=== PATIENT | female | born 1955 | race Caucasian/White ===

== ENCOUNTER 2016-12-30 06:40 | Emergency (ER) | payer OTHER, MEDICARE ==
[~2016-12-30] VITALS: Ht 160 cm; Wt 68.0 kg
[~2016-12-30 06:40] MED LIST: AUGMENTIN 875-1 EACH PO; AUGMENTIN 875875 MG PO; AZITHROMYCIN500 M3 PO; DIAZEPAM5 M1 PO; DILAUDID2 MG PO; FENTANYL; FENTANYL NAS; FENTANYL SL; FENTANYL1 EAC4 TOP; FENTANYL1 EAC5 TOP; GABAPENTIN100 MG PO; HALOBETASOL PRO15 GM TOP; HYDROMORPHONE HY8 MG PO; HYDROXYZINE HCL50 M1 PO; IPRAT-ALBUT 0.5-3 ML INH/SOL; LANTUS100 U/ML SC; LANTUS100 UNIT/1 SC; LASIX20 MG PO; LASIX40 M1 PO; LEVAQUIN500 M1 PO; MEDROL4 M2 PO; MORPHINE; NAPROXEN500 M2 PO; NOVOLOG FL100 UNIT/1; NOVOLOG100 U/ML SC; NYSTATIN100000 UNI PO; ONDANSETRON ODT8 M1 PO; ONDANSETRON4 M1; PREDNISONE10 M2 PO; PREDNISONE10 MG PO; PREVACID30 M1 PO; PYRIDIUM200 M1 PO; SIMVASTATIN10 MG PO; SYMBICORT 160/41 PUF INH; TOUJEO SOL300 UNIT/1 SQ; VALACYCLOVIR1000 MG PO; VITAMIN B COMPL1 CAP PO; VITAMIN D250000 UNIT PO; VITAMIN D50000 IU PO; ZITHROMAX250 M2 PO; ZOCOR10 M1 PO; ZOFRAN4 M2 SL; [UNRECOGNIZED DRUG - OTHER]; [UNRECOGNIZED DRUG - OTHER] NAS; [UNRECOGNIZED DRUG - OTHER] SL
--- NOTE | 2016-12-30 07:01 | ED GI/GU/ABDOMINAL COMPLAINT ---
History of Present Illness General Chief Complaint: General Adult Stated Complaint: VOMITING,PT HAS PAIN PUMP TO BACK PT OF BAILEE Source: patient Exam Limitations: no limitations Vital Signs & Intake/Output Vital Signs & Intake/Output Vital Signs Date Time Temp Pulse Resp B/P Pulse O2 O2 Flow FiO2 Ox Delivery Rate 12/30 0551 93 Nasal 4.0L Cannula 12/30 0550 97.5 100 20 188/96 93 Nasal 4.0L Cannula Allergies Coded Allergies: Sulfa (Sulfonamide Antibiotics) (Intermediate, HIVES 07/20/16) tioconazole (Intermediate, VAGINA SWELLING 07/20/16) metoclopramide (From REGLAN) (Intermediate, ANTSY, RESTLESS LEGS 07/20/16) prochlorperazine (From COMPAZINE) (Intermediate, JITTERY, "JUMP OUT OF MY SKIN" 07/20/16) Reconcile Medications Albuterol Sulfate/Ipratropiu (Duoneb) 3 MG/3 ML NEB 1 Vial INH/SCOTT BID PRN COPD (Reported) Amoxicillin/Potassium Clav (Augmentin 875-125 Tablet) 875 MG-125 MG TABLET 1 TAB PO BID bronchitis Budesonide/Formoterol Fumara (Symbicort 160-4.5 Mcg Inhaler) 160 MCG/4.5 MCG PUF 2 PUF INH BID COPD (Reported) Diazepam 5 MG TABLET 1 TAB PO TID ANXIETY (Reported) ERGOCALCIFEROL (VITAMIN D2) (Vitamin D2) 50,000 IU SGL 1 CAP PO QMON SUPPLEMENT (Reported) Fentanyl (Fentanyl Transdermal System) 100 MCG/HR TDM 200 MCG TD Q48 PAIN ( Reported) Fentanyl (Fentanyl Transdermal System) 75 MCG/HR TDM 75 MCG TD Q48 PAIN ( Reported) Furosemide (Lasix) 40 MG TABLET 1 TAB PO DAILY PRN DIURETIC (Reported) Halobetasol Propionate 15 GM CREAM..G. 1 BERE TOP BID BOTH HANDS ECZEMA ( Reported) Insulin Aspart, Recombinant (Novolog) 100 U/ML SCOTT 0 UNITS SC TIDAC PRN GLUCOSE CONTROL (Reported) BLOOD SUGAR # OF UNITS < 80 NONE 80-150 NONE 151-200 4 UNITS 201-250 6 UNITS 251-300 8 UNITS 301-350 10 UNITS 351-400 12 UNITS >400 14 UNITS and call Insulin Glargine,Hum.rec.anlog ([place] Solostar) 300 UNIT/ML (1.5 ML) INSULN.PEN 60 UNITS SQ BID DIABETES (Reported) Lansoprazole (Prevacid) 30 MG CAPSULE. 1 TAB PO DAILY GERD (Reported) Ondansetron (Ondansetron Odt) 8 MG ODT 8 MG SL Q6H PRN N/V (Reported) Prednisone 10 MG TABLET 1 TAB PO SI COPD take 6 tabs 07/24/2016 to 07/25/2016 take 5 tabs 07/26/2016 to 06/26/2016 TAKE 4 TABS 06/27/2016 TO 06/28/2016 Take 3 tabs 06/29/2016 TO 06/30/2016 Take 2 tabs 07/01/2016 TO 07/02/2016 Take 1 tabS 07/03/2016 TO 07/04/2016 Then STOP. Simvastatin (Zocor) 10 MG TAB 10 MG PO QPM CHOLESTEROL (Reported) Triage Note: PT TO ED C/O HEAVING AND NAUSEA X3 WEEKS. PT IS ON PAIN MANAGEMENT, HAS A PAIN PUMP WITH FENTANYL AND A NUMBING AGENT, "FEELS LIKE IM WITHDRAWING". Triage Nurses Notes Reviewed? yes ? n Is pt currently ? No Onset: Abrupt Duration: week(s): (2) Timing: recent history Severity Numbers: 10 Location: generalized abdomen HPI: This is a [id number] female with history of previous lung cancer status post ectopy. COPD with home O2 4 L, chronic pain on intrathecal fentanyl as well as fentanyl patches present CO2 complaint of 2 weeks worth of nausea vomiting and abdominal cramping. Patient states that she feels that she is went into withdrawal. Dr. Segura [place] the country and she has been calling the office in speaking to the nurse practitioners. She states that they did a telemetry study of the pump and it seems to be working but she thinks maybe the catheter for the fentanyl pump is broken. She used to be on intranasal ketamine for several years and this discontinued it in September. She did not start to have symptoms until 2 weeks ago. Denies any fever or chills. Last bowel movement was 2 days ago which she describes as watery. History of Crohn's disease for which she is on all of this pain management. (CARLITOS PINTO,LANCE) Past History Travel History Traveled to [place] past 21 day No Medical History Any Pertinent Medical History? 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/Reproductive: NONE History of MRSA: No History of VRE: No History of CDIFF: No Surgical History Surgical History: appendectomy, cholecystectomy, colon resection, hysterectomy, Lobectomy RUL Colostomy reversal Psychosocial History Who do you live with Family Services at Home None What is your primary language Stateless Tobacco Use: Current Daily Use Daily Tobacco Use Amount/Type: => 5 Cigarettes daily Family History Family History, If Any: MOTHER FHx: heart disease FATHER Bladder cancer FH: lung cancer FHx: heart disease BROTHER Liver cancer Relation not specified for: Breast cancer in sister Hx Contributory? No (CARLITOS PINTO,LANCE) Review of Systems Review of Systems Constitutional: Reports: chills. Denies: fever. EENTM: Reports: no symptoms. Respiratory: Reports: short of breath. Denies: cough, sputum production. Cardiovascular: Denies: chest pain, palpitations. GI: Reports: abdominal pain, diarrhea, nausea, vomiting. Genitourinary: Reports: no symptoms. Musculoskeletal: Reports: no symptoms. Skin: Reports: no symptoms. Neurological/Psychological: Reports: anxiety. Hematologic/Endocrine: Reports: bleeding (scant in stool). Immunologic/Allergic: Reports: no symptoms. All Other Systems: Reviewed and Negative (CARLITOS PINTO,LANCE) Physical Exam Physical Exam General Appearance: well developed/nourished, alert, awake, anxious, mild distress, moderate distress Head: atraumatic, normal appearance Eyes: Bilateral: normal appearance, PERRL, EOMI. Ears, Nose, Throat, Mouth: hearing grossly normal, moist mucous membrane Neck: normal inspection, supple, full range of motion Respiratory: normal breath sounds, chest non-tender, no respiratory distress Cardiovascular: tachycardia Peripheral Pulses: 2+ radial (R), 2+ radial (L) Gastrointestinal: normal bowel sounds, soft, non-tender Back: normal inspection, normal range of motion Extremities: normal range of motion Neurologic/Psych: no motor/sensory deficits, awake, alert, oriented x 3 Core Measures ACS in differential dx? No Severe Sepsis Present: No Septic Shock Present: No (CARLITOS PINTO,LANCE) Progress Differential Diagnosis: OPIATE WITHDRAWAL, GASTROENTERITIS, KINSEY, DEHYDRATION, FENTANYL PUMP MALFUNCTION Plan of Care: Orders Procedure Date/time Status URINE DRUGS OF ABUSE 12/30 699 Complete PARTIAL THROMBOPLASTIN TIME 12/30 699 Complete PROTHROMBIN TIME 12/30 699 Complete LIPASE 12/30 699 Complete LACTIC ACID 12/30 699 Complete COMPREHENSIVE METABOLIC PANEL 12/30 699 Complete CBC WITHOUT DIFFERENTIAL 12/30 699 Complete EKG 12/30 699 Active Current Medications Sig/Muriel Start time Last Medication Dose Stop Time Status Admin Sodium Chloride 1,000 ML BOLUS ONE 12/30 929 UNVr (Normal Saline 0.9%) 12/30 1029 Laboratory Tests 12/30/16 0820: Urine Opiates Screen > 4000.00 H, Methadone Screen < 40, Barbiturate Screen < 60, Ur Phencyclidine Scrn < 6.00, Amphetamines Screen < 100, U Benzodiazepines Scrn > 800 H, Urine Cocaine Screen < 50, Urine Cannabis Screen > 80.00 H 12/30/16 0701: Anion Gap 10, Estimated GFR > 60, BUN/Creatinine Ratio 18.3, Glucose 242 H, Lactic Acid 1.5, Calcium 9.7, Total Bilirubin 0.9, AST 26, ALT 38, Alkaline Phosphatase 97, Total Protein 7.3, Albumin 4.2, Globulin 3.1, Albumin/Globulin Ratio 1.4, Lipase 29, PT 10.7, INR 1.02, APTT 35, CBC w Diff NO MAN DIFF REQ, RBC 5.76 H, MCV 87.6, MCH 28.3, RDW 12.9, MPV 8.6, Gran % 64.6, Lymphocytes % 27.8, Monocytes % 5.2, Eosinophils % 1.9, Basophils % 0.5, Absolute Granulocytes 8.8 H, Absolute Lymphocytes 3.8 H, Absolute Monocytes 0.7 H, Absolute Eosinophils 0.3, Absolute Basophils 0.1, PUBS MCHC 32.3 L Initial ED EKG: SINUS TACHYCARDIA Hand-Off Endorsed To: CARTER PINTO,PAULA Benitez Endorsed Time: 716 Pending: labs, other (REEVALUATION) (CARLITOS PINTO,LANCE) Comments: D/W DR. BENAVIDES. SHE IS SCHEDULED FOR CATH STUDY ON TUESDAY. SHE HAS HAD THESE COMPLAINTS FOR MANY WEEKS AND THE TIMING IS NOT CONSISTENT WITH WITHDRAWL. (CARTER PINTO,PAULA Benitez) Departure Departure Condition: Stable Departure Forms: Customer Survey General Discharge Information (CARLITOS PINTO,LANCE) Departure Disposition: HOME OR SELF CARE Clinical Impression Primary Impression: Opioid withdrawal Secondary Impressions: Dehydration, Vomiting Referrals: DEMETRI PINTO,COTY ARGUELLO MD,[facility] (PCP/Family) Additional Instructions: FOLLOW UP WITH DR. MOSQUERA RETURN FOR ANY COCNERNS (CARTER PINTO,PAULA Benitez)
[2016-12-30 07:40] LABS: ABSOLUTE BASOPHIL COUNT 0.1 /CUMM (0.0-0.2); ABSOLUTE EOSINOPHIL COUNT 0.3 /CUMM (0.0-0.7); ABSOLUTE GRANULOCYTE CT 8.8 /CUMM (1.4-6.5); ABSOLUTE LYMPH COUNT 3.8 /CUMM (1.2-3.4); ABSOLUTE MONOCYTE COUNT 0.7 /CUMM (0.10-0.60); BASOPHIL % 0.5 % (0.0-2.0); EOSINOPHIL % 1.9 % (0-5); GRANULOCYTE % 64.6 % (42.2-75.2); HEMATOCRIT 50.5 % (37-47); MEAN CORPUSCULAR HGB 28.3 PG (27.0-31.0); MEAN CORPUSCULAR HGB CONC 32.3 G/DL (33.0-37.0); MEAN CORPUSCULAR VOLUME 87.6 FL (81.0-99.0); MEAN PLATELET VOLUME 8.6 FL (7.4-10.4); PLATELET COUNT 303 /CUMM (130-400); RBC DISTRIBUTION WIDTH 12.9 % (11.5-14.5); RED BLOOD CELL CT 5.76 /CUMM (4.20-5.40); WHITE BLOOD CELL COUNT 13.6 /CUMM (4.8-10.8)
[2016-12-30 07:41] LABS: PT 10.7 SEC (9.4-12.5); PTT 35 SEC (25-37)
[2016-12-30 11:06] VITALS: BP 174/71
== END 2016-12-30 11:07 ==
LOC: ERH 06:40
PROVIDERS: Emergency Medicine
DX: E86.0 Dehydration (principal); F11.23 Opioid dependence with withdrawal
CPT/HCPCS: 80307; 93005; 93010; 96361; 96374; 96376; J2405; J3360

== ENCOUNTER 2017-01-09 06:28 | Inpatient (IN) | payer OTHER, MEDICARE ==
[~2017-01-09] VITALS: Ht 160 cm; Wt 68.0 kg
--- NOTE | 2017-01-09 06:41 | NUR ---
PT TO ED FOR N/V STARTING YESTERDAY. 10 EPISODES VOMITING SINCE 0. PT ALSO COMPLAINS OF DIARRHEA "IT'S HARD TO GET IT OUT AND THERE'S GEL MUCOUS AROUND IT." HX CROHN'S. HAS PAIN PUMP THAT ADMINISTERS FENTANYL AND CURRENTLY WEARING 3 FENTANYL PATCHES (MID ABD, L AND R BREAST). WEARS 4LNC AT BASELINE D/T COPD.
--- NOTE | 2017-01-09 06:43 | ED GI/GU/ABDOMINAL COMPLAINT ---
See Addendum History of Present Illness General Chief Complaint: Nausea, Vomiting, Diarrhea Stated Complaint: VOMITING Source: patient, old records Exam Limitations: no limitations Vital Signs & Intake/Output Vital Signs & Intake/Output Vital Signs Date Time Temp Pulse Resp B/P Pulse O2 O2 Flow FiO2 Ox Delivery Rate 01/09 0839 98.0 68 18 109/58 99 Nasal 4.0L Cannula 01/09 0643 94 Nasal 4.0L Cannula 01/09 0637 96.5 82 20 151/72 94 Nasal 4.0L Cannula Allergies Coded Allergies: Sulfa (Sulfonamide Antibiotics) (Intermediate, HIVES 01/09/17) tioconazole (Intermediate, VAGINA SWELLING 01/09/17) metoclopramide (From REGLAN) (Intermediate, ANTSY, RESTLESS LEGS 01/09/17) prochlorperazine (From COMPAZINE) (Intermediate, JITTERY, "JUMP OUT OF MY SKIN" 01/09/17) Triage Note: PT TO ED FOR N/V STARTING YESTERDAY. 10 EPISODES VOMITING SINCE 399. PT ALSO COMPLAINS OF DIARRHEA "IT'S HARD TO GET IT OUT AND THERE'S GEL MUCOUS AROUND IT." HX CROHN'S. HAS PAIN PUMP THAT ADMINISTERS FENTANYL AND CURRENTLY WEARING 3 FENTANYL PATCHES (MID ABD, L AND R BREAST). WEARS 4LNC AT BASELINE D/T COPD. Triage Nurses Notes Reviewed? yes ? N Is pt currently ? No Onset: Abrupt Duration: hour(s): (FEW) Timing: multiple episodes today Quality/Severity: moderate Location: epigastric Radiation: no radiation No Modifying Factors: none Associated Symptoms: abdominal pain, nausea/vomiting HPI: 61 year old female wtih history of chronic pain on fentanyl pump presents with nausea and vomiting which started yesterday. Patient is on medicinal marijuana (liquid) which has been helping with the nause. Last week she was here with similar symptoms and had a pain pump study on tuesday which determined the catheter to be fine. History of crohns disease s/p resection many years ago. Has not had a crohns exacerbation in many years, currnetly not taking any meds for it specifically. Patient reports some diarrhea 2 days ago which was watery and nonbloody. She states this morning she felt nauseous and vomited over 10 times. Emesis is bilious in nature denies any hematemesis or black vomitus. Unsure if her abdominal pain feels similar to previous Crohn's colitis episodes. Her last GI doctor was Stephen Solano MD. (CARLITOS PINTO,[facility]) Reconcile Medications Diazepam 5 MG TABLET 1 TAB PO TID ANXIETY (Reported) Ergocalciferol (Vitamin D2) (Vitamin D2) 50,000 UNIT CAPSULE 1 CAP PO QMON SUPPLEMENT (Reported) Fentanyl 100 MCG/HOUR PATCH.TD72 2 PAT TOP Q48 PAIN (Reported) Fentanyl 75 MCG/HOUR PATCH.TD72 1 PAT TOP Q48 PAIN (Reported) Furosemide (Lasix) 40 MG TABLET 1 TAB PO DAILY PRN DIURETIC (Reported) Halobetasol Propionate 15 GM CREAM..G. 1 BERE TOP BID BOTH HANDS ECZEMA ( Reported) Insulin Aspart, Recombinant (Novolog Flexpen) (Unknown Strength) INSULN.PEN ( Unknown Dose) SEE SLIDING SCALE PRN DM (Reported) Insulin Glargine,Hum.rec.anlog (Toujeo Solostar) 300 UNIT/ML (1.5 ML) INSULN.PEN 60 UNITS SQ BID DIABETES (Reported) Ipratropium/Albuterol Sulfate (Iprat-Albut 0.5-3(2.5) MG/3 Ml) 0.5 MG-3 MG (2.5 MG BASE)/3 ML AMPUL.NEB 1 VIAL INH/SCOTT BID PRN COPD (Reported) Lansoprazole (Prevacid) 30 MG CAPSULE.DR 1 CAP PO DAILY ACID REFLUX (Reported ) Ondansetron (Ondansetron Odt) 8 MG TAB.RAPDIS 1 TAB PO Q6 PRN NAUSEA/VOMITING (Reported) Simvastatin (Zocor*) 10 MG TABLET 1 TAB PO QPM CHOLESTEROL (Reported) (CARTER PINTO,PAULA Benitez) Past History Travel History Traveled to [place] past 21 day No Medical History Any Pertinent Medical History? 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 BINDER/Reproductive: NONE History of MRSA: No History of VRE: No History of CDIFF: No Surgical History Surgical History: appendectomy, cholecystectomy, colon resection, hysterectomy, Lobectomy RUL Colostomy reversal Psychosocial History Who do you live with Family Services at Home None What is your primary language [place] Tobacco Use: Current Daily Use Daily Tobacco Use Amount/Type: => 5 Cigarettes daily ETOH Use: denies use Illicit Drug Use: marijuana Family History Family History, If Any: MOTHER FHx: heart disease FATHER Bladder cancer FH: lung cancer FHx: heart disease BROTHER Liver cancer Relation not specified for: Breast cancer in sister Hx Contributory? No (LANCE URBINA MD) Review of Systems Review of Systems Constitutional: Denies: chills, fever. Respiratory: Denies: cough, orthopnea, short of breath. Cardiovascular: Denies: chest pain, palpitations. GI: Reports: diarrhea, nausea, vomiting. Hematologic/Endocrine: Denies: bruising, bleeding, polyuria, polydipsia. Immunologic/Allergic: Denies: splenectomy. (LANCE URBINA MD) Physical Exam Physical Exam General Appearance: well developed/nourished, alert, awake, anxious, mild distress Head: atraumatic, normal appearance Eyes: Bilateral: normal appearance, PERRL, EOMI. Ears, Nose, Throat, Mouth: hearing grossly normal, moist mucous membrane Neck: normal inspection, supple, full range of motion Respiratory: normal breath sounds, chest non-tender, quiet respiration Cardiovascular: regular rate/rhythm Gastrointestinal: normal bowel sounds, soft, tenderness (EPIGASTRIUM) Extremities: normal range of motion Neurologic/Psych: no motor/sensory deficits, awake, alert, oriented x 3 Core Measures ACS in differential dx? No Severe Sepsis Present: No Septic Shock Present: No (LANCE URBINA MD) Progress Differential Diagnosis: COLITIS, SBO, CROHNS, WITHDRAWAL, KINSEY, DEHYDRATION Plan of Care: Orders Procedure Date/time Status Admit to inpatient 01/09 0915 Active Add-on Test (ER Only) 01/09 0818 Active AMYLASE 01/09 0707 Complete PARTIAL THROMBOPLASTIN TIME 01/09 0650 Complete PROTHROMBIN TIME 01/09 0650 Complete LIPASE 01/09 0650 Complete LACTIC ACID 01/09 0650 Complete COMPREHENSIVE METABOLIC PANEL 01/09 0650 Complete CBC WITHOUT DIFFERENTIAL 01/09 0650 Complete Current Medications Sig/Muriel Start time Last Medication Dose Stop Time Status Admin Ondansetron HCl 4 MG ONCE ONE 01/09 0915 AC (Zofran) 01/09 0916 Sodium Chloride 1,000 ML BOLUS ONE 01/09 0915 AC (Normal Saline 0.9%) 01/09 1014 Laboratory Tests 01/09/17 0707: Anion Gap 6, Estimated GFR > 60, BUN/Creatinine Ratio 24.0, Glucose 295 H, Lactic Acid 1.0, Calcium 9.4, Total Bilirubin 0.6, AST 28, ALT 44, Alkaline Phosphatase 109, Total Protein 6.6, Albumin 3.8, Globulin 2.8, Albumin/Globulin Ratio 1.4, Amylase 33, Lipase 15 L, PT 10.3, INR 0.98, APTT 32, CBC w Diff NO MAN DIFF REQ, RBC 5.31, MCV 87.7, MCH 27.9, RDW 13.0, MPV 8.3, Gran % 75.9 H, Lymphocytes % 15.7 L, Monocytes % 5.8, Eosinophils % 1.9, Basophils % 0.7, Absolute Granulocytes 8.0 H, Absolute Lymphocytes 1.7, Absolute Monocytes 0.6, Absolute Eosinophils 0.2, Absolute Basophils 0.1, PUBS MCHC 31.8 L Diagnostic Imaging: Viewed by Me: CT Scan. Discussed w/RAD: CT Scan. Initial ED EKG: none Hand-Off Endorsed To: CARTER PINTO,PAULA Benitez Endorsed Time: 0700 Pending: CT, labs (CARLITOS PINTO,LANCE) Radiology Impression: PATIENT: EMANUEL BOWEN PRESENT AGE: 61 PATIENT ACCOUNT NO: [id number] : 56 LOCATION: [facility] ORDERING PHYSICIAN: LANCE URBINA MD SERVICE DATE: 01/09/17 EXAM TYPE: CAT - CT ABD & PELVIS W IV CONTRAST EXAMINATION: CT ABDOMEN AND PELVIS WITH CONTRAST CLINICAL INFORMATION: Abdominal pain, vomiting and diarrhea. History of Crohn's disease. COMPARISON: CT abdomen and pelvis 03/15/2016. TECHNIQUE: Multidetector volumetric imaging was performed of the abdomen and pelvis before and after the IV administration of 95 mL of Optiray 320 intravenous contrast. Sagittal and coronal reformatted images were obtained on the technologist's workstation. DLP: 357 mGy-cm. FINDINGS: LUNG BASES: There is minimal compressive atelectasis or scarring in the left lung base. LIVER, GALLBLADDER, AND BILIARY TREE: The liver is normal in size, shape, and diffusely attenuated. No focal hepatic lesion or biliary ductal dilatation is present. The gallbladder has been surgically removed. The common bile duct is slightly prominent secondary to cholecystectomy. PANCREAS: There is diffuse hypodensity of the pancreas with mild peripancreatic haziness suspicious for pancreatitis. No focal fluid collection or free fluid seen. SPLEEN: Unremarkable. ADRENAL GLANDS: Unremarkable. KIDNEYS AND URETERS: The kidneys are normal in size, shape, and attenuation. No hydronephrosis, hydroureter, or calculi seen. No perinephric stranding. BLADDER: Unremarkable. GASTROINTESTINAL TRACT: There is fluid-filled prominent transverse and ascending colon. ABDOMINAL WALL: No significant hernia is appreciated. LYMPH NODES: Normal. VASCULAR: Unremarkable. PELVIC VISCERA: There is no free air or free fluid. The uterus is nonvisualized and probably atrophied or surgically removed. No adnexal mass seen. There are scattered phleboliths in the pelvis. OSSEOUS STRUCTURES: There are degenerative disc changes with vacuum disc phenomena L2-L3 disc level. IMPRESSION: Diffuse fatty liver without focal lesion. Diffuse attenuation of pancreas with slight thickening and peripancreatic haziness suspicious for pancreatitis. Differential diagnosis includes fatty infiltration. Nonspecific prominent ascending and transverse colon with fluid but no air-fluid level, distention, or obstruction seen. There is no free air or free fluid. Results were discussed with Dr. Ernandez by phone at 8:18 a.m. DICTATED BY: JUAN REGAN MD DATE/TIME DICTATED: 01/09/17809 SENIOR DEVELOPER:DOMINGA DATE/TIME TRANSCRIBED:01/09/17809 CONFIDENTIAL, DO NOT COPY WITHOUT APPROPRIATE AUTHORIZATION. <Electronically signed in Other Vendor System> SIGNED BY: JUAN REGAN MD 01/09/17 0844 Comments: Patient continues to have intractable nausea and vomiting unrelieved with IV antiemetics here in the emergency department. Patient is unable to keep anything down at home. Patient continues to look very dry despite IV fluids. At this point the patient will be admitted. The patient will need a GI consultation given the CAT scan findings. (CARTER PINTO,PAULA Benitez) Departure Departure Disposition: STILL A PATIENT Condition: Stable Departure Forms: Customer Survey General Discharge Information (CARLITOS PINTO,LANCE) Departure Clinical Impression Primary Impression: Nausea & vomiting Secondary Impressions: Abdominal pain, unspecified site Referrals: SARITA ARGUELLO MD (PCP/Family) Admission Note Spoke With: ELANA PINTO,ELMER Documentation of Exam: Documentation of any treatments & extenuating circumstances including Concerns Regarding Discharge (functional status, medication knowledge or non-compliance, living conditions, etc.) that warrant an admission rather than observation: [IV fluids, IV antiemetics, GI consultation] (CARTER PINTO,PAULA Benitez)
--- NOTE | 2017-01-09 07:12 | NUR ---
BLOOD DRAWN AND SENT TO LAB BY THIS [facility] (BLUE, SST, PINK, DE LEON, LAV)
--- NOTE | 2017-01-09 07:20 | NUR ---
IV EST. PT MEDICATED WITH ZOFRAN PER ORDER AT THIS TIME. NORMAL SALINE INFUSING.
[2017-01-09 07:57] LABS: ABSOLUTE BASOPHIL COUNT 0.1 /CUMM (0.0-0.2); ABSOLUTE EOSINOPHIL COUNT 0.2 /CUMM (0.0-0.7); ABSOLUTE LYMPH COUNT 1.7 /CUMM (1.2-3.4); ABSOLUTE MONOCYTE COUNT 0.6 /CUMM (0.10-0.60); BASOPHIL % 0.7 % (0.0-2.0); EOSINOPHIL % 1.9 % (0-5); GRANULOCYTE % 75.9 % (42.2-75.2); HEMATOCRIT 46.5 % (37-47); MEAN CORPUSCULAR HGB 27.9 PG (27.0-31.0); MEAN CORPUSCULAR HGB CONC 31.8 G/DL (33.0-37.0); MEAN CORPUSCULAR VOLUME 87.7 FL (81.0-99.0); MEAN PLATELET VOLUME 8.3 FL (7.4-10.4); PLATELET COUNT 259 /CUMM (130-400); RED BLOOD CELL CT 5.31 /CUMM (4.20-5.40); WHITE BLOOD CELL COUNT 10.6 /CUMM (4.8-10.8)
--- NOTE | 2017-01-09 08:08 | NUR ---
PT TO AND FROM CT SCAN AT THIS TIME.
[2017-01-09 08:41] LABS: PT 10.3 SEC (9.4-12.5); PTT 32 SEC (25-37)
--- NOTE | 2017-01-09 08:44 | CT SCAN REPORT ---
EXAMINATION: CT ABDOMEN AND PELVIS WITH CONTRAST CLINICAL INFORMATION: Abdominal pain, vomiting and diarrhea. History of Crohn's disease. COMPARISON: CT abdomen and pelvis 03/15/2016. TECHNIQUE: Multidetector volumetric imaging was performed of the abdomen and pelvis before and after the IV administration of 95 mL of Optiray 320 intravenous contrast. Sagittal and coronal reformatted images were obtained on the technologist's workstation. DLP: 357 mGy-cm. FINDINGS: LUNG BASES: There is minimal compressive atelectasis or scarring in the left lung base. LIVER, GALLBLADDER, AND BILIARY TREE: The liver is normal in size, shape, and diffusely attenuated. No focal hepatic lesion or biliary ductal dilatation is present. The gallbladder has been surgically removed. The common bile duct is slightly prominent secondary to cholecystectomy. PANCREAS: There is diffuse hypodensity of the pancreas with mild peripancreatic haziness suspicious for pancreatitis. No focal fluid collection or free fluid seen. SPLEEN: Unremarkable. ADRENAL GLANDS: Unremarkable. KIDNEYS AND URETERS: The kidneys are normal in size, shape, and attenuation. No hydronephrosis, hydroureter, or calculi seen. No perinephric stranding. BLADDER: Unremarkable. GASTROINTESTINAL TRACT: There is fluid-filled prominent transverse and ascending colon. ABDOMINAL WALL: No significant hernia is appreciated. LYMPH NODES: Normal. VASCULAR: Unremarkable. PELVIC VISCERA: There is no free air or free fluid. The uterus is nonvisualized and probably atrophied or surgically removed. No adnexal mass seen. There are scattered phleboliths in the pelvis. OSSEOUS STRUCTURES: There are degenerative disc changes with vacuum disc phenomena L2-L3 disc level. IMPRESSION: Diffuse fatty liver without focal lesion. Diffuse attenuation of pancreas with slight thickening and peripancreatic haziness suspicious for pancreatitis. Differential diagnosis includes fatty infiltration. Nonspecific prominent ascending and transverse colon with fluid but no air-fluid level, distention, or obstruction seen. There is no free air or free fluid. Results were discussed with Dr. Ernandez by phone at 8:18 a.m.
--- NOTE | 2017-01-09 09:02 | NUR ---
MD TO BEDSIDE
--- NOTE | 2017-01-09 09:18 | NUR ---
PT STATES HER NAUSEA IS BACK AT THIS TIME. MEDICATED WITH ZOFRAN PER ORDER AND SECOND LITER NORMAL SALINE PER ORDER AT THIS TIME. PT AWARE OF ADMISSION PLAN
--- NOTE | 2017-01-09 09:23 | History & Physical ---
REY HURLEY 01/09/17 0922: General Information and HPI MD Statement: I have seen and personally examined EMANUEL BOWEN and documented this H&P. The patient is a 61 year old F who presented with a patient stated chief complaint of [intractible abdominal pain and vomiting ]. Source of Information: patient, old records Exam Limitations: no limitations History of Present Illness: 61 year-old woman presented at ED complaining of nausea, vomiting and intractible abdominal pain. Mrs. Bowen has a PMH significant for COPD on 4-5L home O2, Chron's disease s/p right hemicolectomy in 2007, lung cancer s/p RUL lobectomy and chemotherapy, diabetes mellitus, chronic pain and diverticulosis. According to patient about one week and a half ago, she had one episode of self- limited abdominal pain and nausea, for which she visited [facility] emergency room. For the past 10 days patient has been at her normal state of health. About 2 days ago she had one episode of large-volume, brown watery bowel movements. Patient denies any bloods in her stool however she mention that her diarrhea was mixed with mucus. After that incident patient gradually developed a subtle right lower quadrant abdominal pain, which progress over the past 2 days. Currently pain is in right lower quadrant, without radiation, pressure type, intensity 8 out of 10, associated with intractable nausea and vomiting and loss of appetite. Patient also mentioned passing small volume none diarrhea stool mixed with mucus, no blood, tenesmus, for the past 2 days. She denies any recent travel, dining outside, contacts with sick person with similar presentation, fever and shaking chills, worsening short of breath and increasing inhaler and oxygen demand, chest pain, palpitation and increasing edema. Allergies/Medications Allergies: Coded Allergies: Sulfa (Sulfonamide Antibiotics) (Intermediate, HIVES 01/09/17) tioconazole (Intermediate, VAGINA SWELLING 01/09/17) metoclopramide (From REGLAN) (Intermediate, ANTSY, RESTLESS LEGS 01/09/17) prochlorperazine (From COMPAZINE) (Intermediate, JITTERY, "JUMP OUT OF MY SKIN" 01/09/17) Home Med list Diazepam 5 MG TABLET 1 TAB PO TID ANXIETY (Reported) Ergocalciferol (Vitamin D2) (Vitamin D2) 50,000 UNIT CAPSULE 1 CAP PO QMON SUPPLEMENT (Reported) Fentanyl 100 MCG/HOUR PATCH.TD72 2 PAT TOP Q48 PAIN (Reported) Fentanyl 75 MCG/HOUR PATCH.TD72 1 PAT TOP Q48 PAIN (Reported) Furosemide (Lasix) 40 MG TABLET 1 TAB PO DAILY PRN DIURETIC (Reported) Halobetasol Propionate 15 GM CREAM..G. 1 BERE TOP BID BOTH HANDS ECZEMA ( Reported) Insulin Aspart, Recombinant (Novolog Flexpen) (Unknown Strength) INSULN.PEN ( Unknown Dose) SEE SLIDING SCALE PRN DM (Reported) Insulin Glargine,Hum.rec.anlog (Toujeo Solostar) 300 UNIT/ML (1.5 ML) INSULN.PEN 60 UNITS SQ BID DIABETES (Reported) Ipratropium/Albuterol Sulfate (Iprat-Albut 0.5-3(2.5) MG/3 Ml) 0.5 MG-3 MG (2.5 MG BASE)/3 ML AMPUL.NEB 1 VIAL INH/SCOTT BID PRN COPD (Reported) Lansoprazole (Prevacid) 30 MG CAPSULE.DR 1 CAP PO DAILY ACID REFLUX (Reported ) Ondansetron (Ondansetron Odt) 8 MG TAB.RAPDIS 1 TAB PO Q6 PRN NAUSEA/VOMITING (Reported) Simvastatin (Zocor*) 10 MG TABLET 1 TAB PO QPM CHOLESTEROL (Reported) Compliance With Home Meds: GOOD Past History Travel History Traveled to [place] past 21 day No Medical History Neurological: NONE EENT: NONE Cardiovascular: hyperlipidemia Respiratory: COPD (HOME 02 DEPENDENT 4-5L) Gastrointestinal: Crohn's disease, diverticulitis Hepatic: NONE Renal: NONE Musculoskeletal: NONE Psychiatric: NONE Endocrine: diabetes Blood Disorders: NONE Cancer(s): colon/rectal cancer, lung cancer (WITH RUL RESECTION AND CHEMO) 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 spouse Services at Home: None Primary Language: [place] Smoking Status: Current Everyday Smoker ETOH Use: denies use Illicit Drug Use: marijuana Living Will? yes Functional Ability ADLs Independent: dressing, eating, toileting, bathing. Ambulation: independent IADLs Independent: shopping, housework, finances, food prep, telephone, transportation , medication admin. Review of Systems Review of Systems Constitutional: Reports: see HPI. Cardiovascular: Reports: no symptoms. Respiratory: Reports: no symptoms. GI: Reports: see HPI, abdominal pain, diarrhea, nausea, changes in stool, vomiting. Denies: bloating, constipation, distention, bowel incontinence, melena, bloody stool. Genitourinary: Reports: no symptoms. Musculoskeletal: Reports: no symptoms. All Other Systems: Reviewed and Negative Exam & Diagnostic Data Last 24 Hrs of Vital Signs/I&O Vital Signs Date Time Temp Pulse Resp B/P Pulse O2 O2 Flow FiO2 Ox Delivery Rate 01/09 0839 98.0 68 18 109/58 99 Nasal 4.0L Cannula 01/09 0643 94 Nasal 4.0L Cannula 01/09 0637 96.5 82 20 151/72 94 Nasal 4.0L Cannula Intake & Output 01/09 1600 01/09 0800 01/09 0000 Intake Total Output Total Balance Patient 150 lb Weight Physical Exam General Appearance Alert, Oriented X3, Cooperative, Mild Distress Skin No Rashes, No Breakdown, No Significant Lesion HEENT MM are dry Neck Supple, No JVD, No thryomegaly, +2 Carotid Pulse wo Bruit, No LAD Lymphatic Axillary nl, Cervical nl Cardiovascular Normal S1, Normal S2 Lungs Clear to Auscultation Abdomen hyperactive BS, RLU tenderness w/o gaurding or rebound Neurological Normal Speech Extremities No Edema Vascular Normal Pulses Body Front and Back (Adult) 1) multiple surgical wounds Last 24 Hrs of Labs/Tavon: Laboratory Tests 01/09/17 0950: Lactic Acid Cancelled 01/09/17 0707: Anion Gap 6, Estimated GFR > 60, BUN/Creatinine Ratio 24.0, Glucose 295 H, Lactic Acid 1.0, Calcium 9.4, Total Bilirubin 0.6, AST 28, ALT 44, Alkaline Phosphatase 109, Total Protein 6.6, Albumin 3.8, Globulin 2.8, Albumin/Globulin Ratio 1.4, Amylase 33, Lipase 15 L, PT 10.3, INR 0.98, APTT 32, CBC w Diff NO MAN DIFF REQ, RBC 5.31, MCV 87.7, MCH 27.9, RDW 13.0, MPV 8.3, Gran % 75.9 H, Lymphocytes % 15.7 L, Monocytes % 5.8, Eosinophils % 1.9, Basophils % 0.7, Absolute Granulocytes 8.0 H, Absolute Lymphocytes 1.7, Absolute Monocytes 0.6, Absolute Eosinophils 0.2, Absolute Basophils 0.1, PUBS MCHC 31.8 L Diagnostic Data EKG Results Normal sinus rate and rhythm Normal axis No prolongation of QT No acute ST-T segment change Other Results CAT - CT ABD & PELVIS W IV CONTRAST PANCREAS: There is diffuse hypodensity of the pancreas with mild peripancreatic haziness suspicious for pancreatitis. No focal fluid collection or free fluid seen. SPLEEN: Unremarkable. Diffuse fatty liver without focal lesion. Diffuse attenuation of pancreas with slight thickening and peripancreatic haziness suspicious for pancreatitis. Differential diagnosis includes fatty infiltration. Nonspecific prominent ascending and transverse colon with fluid but no air-fluid level, distention, or obstruction seen. Assessment/Plan Assessment: 61-year-old woman was admitted for intractable nausea vomiting and abdominal pain. Possible causes considering her past medical history and presentation could be, colitis, gastroenteritis, bowel obstruction, Crohn's reactivation, opiate withdrawal. Discussion: Patient could have viral or bacterial gastroenteritis. Her wbc count is normal and she remained afebrile. However, viral gastroenteritis is is still a possibility. She is on high dose of fentanyl (fentanyl pump and fentanyl patch that is always a question about opiate withdrawal that costs somatic symptoms like nausea or vomiting abdominal pain lacrimation and salivation. Patient's does not fulfill all the symptomatology of opiate withdrawal and she has been compliant with her opiate medication. CT scan of the abdomen rule out any obstruction. The highlights of her presentation are feeling of urgency to have bowel movements, having episodes of diarrhea and a small volume stool mixed with mucus. Considering her past medical history for Crohn's disease and the fact that patient is not on biologic agents for Crohn's there is a chance for reactivation's of her Crohn's disease. Pertinent Data: CT scan: Discussed above WBC 10.6 and a left shift no bandemia, H and H: 14.8/46.5, plt 259 List of problems #1 Intractable nausea/ vomiting * Nothing by mouth * Continue IV hydration with normal saline 125 mL per hour * Zofran 4 mg IV every 8 * Despite having suspicious for Crohn's disease I would not started patient on prednisone for acute flares. The matter was discussed with the attending physician. * Routine consult on Tuesday with GI service-Dr. Solano for possibility of Crohn's disease. #2 diabetes * Nothing by mouth * Novolin insulin for nothing by mouth patient's * Fingersticks every 6 * Hold simvastatin for today #3 chronic pain * Patient is on fentanyl pump * Continue fentanyl patch 275 MCG every 48h #4 anxiety * Diazepam 5 mg IV 3 times a day #6 chronic respiratory failure on 4 year off home oxygen * TRC/ DueNeb Q4 PRN * O2 supplementation nasal cannula 4 lit O2 Pain pathway-fentanyl pump and fentanyl patch DVT prophylaxis-heparin 5000 units every 8 DNR/DNI As Ranked By This Provider Problem List: 1. COPD 2. Chronic abdominal pain 3. Diabetes mellitus type 2 4. COPD exacerbation 5. Chronic pain syndrome 6. Vomiting 7. Dehydration 8. Nausea & vomiting Core Measures/Miscellaneous Acute Coronary Syndrome ACS Diagnosis: No Cerebrovascular Accident CVA/TIA Diagnosis: No Congestive Heart Failure CHF Diagnosis: No Venous Thromboembolism VTE Risk Factors: Acute medical illness, Age > 40, Obesity No [facility] VTE prophylaxis d/t: No contraindications No VTE Pharm Prophylaxis d/t: No contraindications VTE Diagnosis: No VTE Type: NONE VTE Confirmed by (Test): NONE Severe Sepsis Severe Sepsis Present: No Septic Shock Septic Shock Present: No Miscellaneous Documentation Attending Case Discussed With: [facility] Primary Care Physician: SAUNDRA PINTO,[facility] Patient sees these Specialists Hospitalist Level of Patient Care: General Medicine ELMER HUITRON 01/09/17 1327: Exam & Diagnostic Data Last 24 Hrs of Vital Signs/I&O Vital Signs Date Time Temp Pulse Resp B/P Pulse O2 O2 Flow FiO2 Ox Delivery Rate 01/09 1108 96.7 74 18 107/64 96 Room Air 01/09 0839 98.0 68 18 109/58 99 Nasal 4.0L Cannula 01/09 0643 94 Nasal 4.0L Cannula 01/09 0637 96.5 82 20 151/72 94 Nasal 4.0L Cannula Intake & Output 01/09 1600 01/09 0800 01/09 0000 Intake Total Output Total Balance Patient 68.039 kg Weight Attending MD Review Statement Attending Statement Attending MD Statement: examined this patient, discuss w/resident/PA/REGIONAL SALES ENGINEER, agreed w/resident/PA/REGIONAL SALES ENGINEER, discussed with family, reviewed EMR data (avail), discussed with nursing, discussed with case mgmt, reviewed images, amended to note Attending Assessment/Plan: Intactable abdominal pain benign ct findings GI Consult , pain control. antiemetics prn. gi/dvt prophyalxis full code.
--- NOTE | 2017-01-09 10:24 | NUR ---
BED ASSIGNMENT 209-2
--- NOTE | 2017-01-09 10:59 | NUR ---
OLD FETANYL PATCHES REMOVED, NEW ONES PLACED PER PT REQUEST ON BILATERAL BREASTS AND LEFT ABD.
--- NOTE | 2017-01-09 11:11 | NUR ---
PT MEDICATED WITH HEPARIN PER EMAR.
--- NOTE | 2017-01-09 11:17 | NUR ---
REPORT GIVEN TO FLOOR. [facility] CALLED FOR PT TRANSPORT.
[2017-01-09 11:38] VITALS: BP 100/58
--- NOTE | 2017-01-09 11:38 | NUR ---
LATE ENTRY: PT ARRIVED TO FLOOR FROM ED. D/A BUT ORIENTED X3. VS FAIRLY STABLE- SEE VFS. NO ACUTE DISTRESS AT PRESENT. ORIENTED TO ROOM AND CALL SMITH. SEE ADMISSION ASSESSMENT FOR FURTHER DETAILS. WILL CONT TO MONITOR.
--- NOTE | 2017-01-09 15:33 | Cons- Gastroenterology ---
General Information and HPI Consulting Request Date of Consult: 01/09/17 Requested By: TAMMI PINTO,[facility] Reason for Consult: I was just called to assess nausea & vomiting in a patient post numerous surgeries, with chronic pain syndrome, followed by Dr. Solano for GI. Source of Information: patient, old records Exam Limitations: fair historian, anxiety, agitation, disjointed records History of Present Illness: 61-year-old female, DM x 20 years with neuropathy/HLD/Vit D def/eczema/anxiety, with severe O2 dependent COPD (4-5L)- *still smoking, post RUL lobectomy for lung Ca & CTX, who stated she allegedly had Crohn's disease, although per my discussion with Dr. Solano & review of her records in [place], [place], this has not been the case. She has had numerous surgeries, including PEPE, AP, sigmoid colectomy 03/30/1996 (path: without IBD, ? *diverticulitis), reversal of colostomy, open CCKY 2008, & 10/22/15: laparoscopic repair of incarcerated incisional hernia. She also reportedly had right hemicolectomy in 2007 (? why), but again, there was no definite Crohn's disease. She has chronic pain syndrome , on narcotic analgesics, including 3 Fentanyl patches (mid-abdomen & breasts B/ L) & a Fentanyl pain pump. She is also on Diazepam & medical marijuana. She denies any street drugs or EtOH. The records state she has a spinal cord stimulator implant, but the patient claimed this was part of her pain pump, a portion of which is located in her LLQ. She also claimed that her pain pump "broke" a few years ago, causing her to go into "opiate withdrawal," and that it was repaired. 12/30/2016: *Utox- benzo > 800, OP/MS > 4K, cannabis > 80. Relatively recent endoscopic workup per Dr. Solano failed to show any active IBD, although the terminal ileum could not be intubated. The patient's previous records indicated that her prior surgeries were for diverticular disease, not IBD. *A PillCam was suggested by Dr. Solano at her last OV of 02/16/2016, but the patient never had this. *The patient now claims she had a PillCam per Dr. Ramos in [place] a few years before this, which "showed Crohn's." (Dr. Ramos then moved rto [place].) The patient has a history of GERD, well controlled on Prevacid, without any odynophagia or dysphagia. *Her nausea & vomiting was felt to be from gastroparesis, and her symptoms previously responded to Zofran. There was consideration for a gastric scintiscan, but this was not done (If done, it certainly could have been falsely positive from her narcotic analgesics and/or cannabis.) She has diarrhea that was felt to be functional in nature, as she "overshot" with antidiarrheal agents, and became constipated. Questran was suggested at the last GI visit, for possible post-CCKY loose stools. I am not certain if the patient was compliant with this. 01/02/2016: *EGD/Colonoscopy to cecum per Dr. Solano- nonerosive GERD, with biopsy at [facility] at 40 cm- gastric mucosa with mild chronic and minimal acute inflammation, HP-neg; nonerosive gastritis- bxs gastric antrum- mental chronic antral gastritis, HP-neg; bxs gastric body- mild congestion, HP-neg; *suggestion of gastroparesis with mildly decreased peristalsis and moderate amount of leftover bile (patent pylorus w/o GOO or PUD), random duodenal biopsies- unremarkable. Sigmoid diverticula; diminutive rectal "polyp"- unremarkable tissue, normal surgical anastomosis at 65 cm, bx- negative; random biopsy of right colon- negative; biopsy of left colon- melanosis coli; poor prep (followup colonoscpy advised in 1-2 years); no gross IBD; small internal hemorrhoids. *The patient presented to the [facility] 01/09/2017 at 6:28 a.m. complaining of nausea, vomiting, and intractable chronic abdominal pain. Upon arrival, BP 151/ 72, P 82, R 20, T 96.5, O2 sat 4L- 94%. She was given IV NS & Zofran in the ER, at [facility], they replaced her 3 old Fentanyl patches & replaced them with new ones. Approximately 2 weeks WOOD BUFFER, the patient had an episode of self-limited abdominal pain and nausea, for which she visited the [facility]. She then was back to baseline for the next 10 days. 2 days WOOD BUFFER, she had 1 episode of large-volume, brown, watery diarrhea, perhaps with some scant mucus, but no blood or melena. The patient claims she has not had diarrhea for > 1 day, but that in the past it can be very frequent. It is very difficul to assess from the patient whether her loose stools arerelated to eating. She then developed some subtle RLQ pain, progressing to "8 of 10," with the above nausea vomiting, and loss of appetite. She has mild early satiety. She denied any recent travel, raw food ingestion, NSAIDs, ASA, recent antibiotics, sick contacts, fevers, chills, symptoms of UTI, chest pain, or worsening of her baseline shortness of breath. She has a chronic cough from her COPD & continued smoking. The vomitus was bilious, without any hematemesis. Her appette is good and her weight is relatively stable. There is no family history of GI Ca, IBD, or inherited liver disease. The patient claims both her parents had PUD & that her mother had divertuclitis. 02/22/2014: HIV- negative. 07/18/2015: Hep A Ab, Hep Bs Ag. Hep B core Ab, & Hep C Ab- all negative. 01/09/2017: Admission labs- WBC 10.6 (76% gran/8 gran Ab), H/H 14.8/46.5,MCV 87.7, PLT 259, PT 10.3, INR 0.98, PTT 32, glu 295, BUN/Cr 12/0.5, GFR > 60, Na 140, K 3.8, Cl 97, HCO3 37, AG 6, nl lactate 1.0, amylase 33, lipas 15, Ca 9.4, albumin 3.8, globulin 2.8, TBil 0.6, alk phos 109, AST 28, ALT 44. 01/09/2017: CT ABDOMEN AND PELVIS WITH IV CONTRAST- Diffuse fatty liver without focal lesion. Post CCKY w/o dilated ducts. Diffuse attenuation of pancreas with slight thickening and peripancreatic haziness suspicious for pancreatitis (*normal lipase). Differential diagnosis includes fatty infiltration. Nonspecific prominent ascending and transverse colon with fluid but no air-fluid level, distention, or obstruction seen. No hernia. There is no free air or free fluid. PEPE. SAIDA. Allergies/Medications Allergies: Coded Allergies: Sulfa (Sulfonamide Antibiotics) (Intermediate, HIVES 04/16/17) tioconazole (Intermediate, VAGINA SWELLING 01/09/17) metoclopramide (From REGLAN) (Intermediate, ANTSY, RESTLESS LEGS 01/09/17) prochlorperazine (From COMPAZINE) (Intermediate, JITTERY, "JUMP OUT OF MY SKIN" 01/09/17) Home Med List: Diazepam 5 MG TABLET 1 TAB PO TID ANXIETY (Reported) Ergocalciferol (Vitamin D2) (Vitamin D2) 50,000 UNIT CAPSULE 1 CAP PO QMON SUPPLEMENT (Reported) Fentanyl 100 MCG/HOUR PATCH.TD72 2 PAT TOP Q48 PAIN (Reported) Fentanyl 75 MCG/HOUR PATCH.TD72 1 PAT TOP Q48 PAIN (Reported) Furosemide (Lasix) 40 MG TABLET 1 TAB PO DAILY PRN DIURETIC (Reported) Halobetasol Propionate 15 GM CREAM..G. 1 BERE TOP BID BOTH HANDS ECZEMA ( Reported) Insulin Aspart, Recombinant (Novolog Flexpen) (Unknown Strength) INSULN.PEN ( Unknown Dose) SEE SLIDING SCALE PRN DM (Reported) Insulin Glargine,Hum.rec.anlog (Toujeo Solostar) 300 UNIT/ML (1.5 ML) INSULN.PEN 60 UNITS SQ BID DIABETES (Reported) Ipratropium/Albuterol Sulfate (Iprat-Albut 0.5-3(2.5) MG/3 Ml) 0.5 MG-3 MG (2.5 MG BASE)/3 ML AMPUL.NEB 1 VIAL INH/SCOTT BID PRN COPD (Reported) Lansoprazole (Prevacid) 30 MG CAPSULE.DR 1 CAP PO DAILY ACID REFLUX (Reported ) Ondansetron (Ondansetron Odt) 8 MG TAB.RAPDIS 1 TAB PO Q6 PRN NAUSEA/VOMITING (Reported) Simvastatin (Zocor*) 10 MG TABLET 1 TAB PO QPM CHOLESTEROL (Reported) Current Medications: Current Medications Sig/Muriel Start time Last Medication Dose Route Stop Time Status Admin Albuterol Sulfate 3 ML BID 01/09 2200 AC INH Diazepam 0 .STK-MED ONE 01/09 1015 DC .ROUTE Diazepam 5 MG Q8 01/09 0957 AC 01/09 IV 1353 Fentanyl Citrate 200 MCG Q48 01/09 1000 AC 01/09 TOP 1059 Fentanyl Citrate 75 MCG Q48H 01/09 1000 AC 01/09 TOP 1059 Heparin Sodium 0 .STK-MED ONE 01/09 1111 DC (Porcine) .ROUTE Heparin Sodium 5,000 UNIT Q8 01/09 0930 AC 01/09 (Porcine) SC 1329 Insulin Human Regular 0 Q6 01/09 1200 AC 01/09 SC 1525 Ipratropium [place] 2.5 ML BID 01/09 2200 AC INH Lactated Ringer's 1,000 ML .Q6H40M 01/09 1415 AC 01/09 IV 1525 Ondansetron HCl 4 MG Q8 01/09 1400 AC IV Ondansetron HCl 4 MG ONCE ONE 01/09 1300 DC 01/09 IV 01/09 1301 1326 Ondansetron HCl 0 .STK-MED ONE 01/09 0916 DC .ROUTE Ondansetron HCl 4 MG ONCE ONE 01/09 0915 DC 01/09 IV 01/09 0916 0918 Ondansetron HCl 0 .STK-MED ONE 01/09 0718 DC .ROUTE Ondansetron HCl 4 MG ONCE ONE 01/09 0700 DC 01/09 IV 01/09 0701 0720 Pantoprazole Sodium 40 MG DAILY 01/09 1247 AC 01/09 IV 1353 Patient Medication 1 UNIT ONE NR 01/09 1015 DC Teaching ED 01/09 1030 Sodium Chloride 1,000 ML ONCE ONE 01/09 0945 DC 01/09 IV 01/09 1744 1353 Sodium Chloride 1,000 ML BOLUS ONE 01/09 0915 DC 01/09 IV 01/09 1014 0918 Sodium Chloride 1,000 ML BOLUS ONE 01/09 0700 DC 01/09 IV 01/09 0759 0720 Past History Travel History Traveled to [place] past 21 day No Medical History Blood Transfusion Hx: No (not in [facility]) Neurological: peripheral neuropathy EENT: NONE Cardiovascular: hyperlipidemia Respiratory: COPD (HOME 02 DEPENDENT 4-5L), Hx RUL lung Ca- resected & CTX (? when, ? cell type) Gastrointestinal: Crohn's disease (NOT definite), diverticulitis Hepatic: NONE Renal: NONE Musculoskeletal: chronic back pain, degen joint disease, osteoarthritis Psychiatric: anxiety, opioid dependence Endocrine: diabetes (neuropathy), vitamin D deficiency Blood Disorders: NONE Cancer(s): lung cancer (WITH RUL RESECTION AND CHEMO) QUALITY REVIEWER/Reproductive: PEPE- ? details Surgical History Surgical History: appendectomy, cholecystectomy, colon resection (03/1996- sigmoid diverticuliti), hernia repair-incisional, hysterectomy, Lobectomy RUL- lung Ca f/b CTX, colostomy reversal, 2007: ? R hemicolectomy Family History Relations & Conditions If Any: MOTHER (PUD/diverticulitis). , Age 80; Cause: Unknown cause of morbidity or mortality. FHx: heart disease FATHER (urinary bladder Ca, PVD, PUD). , Age 80; Cause: Myocardial infarction. Bladder cancer FH: lung cancer FHx: heart disease Relation not specified for: Breast cancer in sister Liver cancer Psychosocial History Where Do You Live? Home Who Do You Live With? spouse Services at Home: Oxygen Primary Language: Swazi Smoking Status: Current Everyday Smoker ETOH Use: denies use Illicit Drug Use: denies illicit drug use (claims it was rxd), marijuana Living Will? yes Power of Tie In Machine Operator/HCP? no Other Social History: . Lives with . 1 son- 37 & 1 dtr- 34; both A&W. 42 pk yr cigarette smoker. No EtOH. Rx narcotics , benzodiazepines & medical marijuana. Denies street drugs. 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 Functional Ability ADLs Independent: dressing, eating, toileting, bathing. Ambulation: independent IADLs Independent: shopping, housework, finances, food prep, telephone, transportation , medication admin. 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 Review of Systems Constitutional: Denies: chills, diaphoresis, fever, malaise, weakness, unexplained weight loss. EENTM: Denies: blurred vision, double vision, visual changes, eye pain, eye drainage, eye tearing, icterus, ear discharge, ear pain, ear redness, hearing changes, nasal congestion, epistaxis, nasal pain, throat pain, throat swelling, mouth pain, tooth pain. Cardiovascular: Denies: chest pain, edema, orthopena, palpitations, peripheral edema, syncope. Respiratory: Reports: cough (chronic), short of breath (COPD- on O2 4-5L; smokes!), wheezing. Denies: hemoptysis, orthopnea, sputum production, stridor. GI: Reports: abdominal pain (chronic), diarrhea (scant at present), nausea, vomiting. Denies: bloating, constipation, distention, bowel incontinence, melena, bloody stool, changes in stool, steatorrhea. Genitourinary: Denies: discharge, dysuria, frequency, hematuria, hesitation, nocturia, pain, urgency. Musculoskeletal: Reports: back pain (chronic), joint pain (DJD). Denies: gout, joint swelling, muscle pain, muscle stiffness, neck pain. Skin: Reports: rash (hx eczema). Denies: cysts, change in skin color, change in hair/ nails, dryness, erythema, jaundice, lesions, lymphangitis, lumps, moles. Neurological/Psychological: Reports: anxiety, emotional problems, other (chronic pain; periph neuropath). Denies: ataxia, cognitive dysfunction, confusion, depressed, dementia, headache, numbness, paresthesia, pre-existing deficit, petit mal seizures, tingling, tremors, tonic-clonic seizures, unable to move lower ext, unable to move upper ext, weakness. Hematologic/Endocrine: Denies: bruising, bleeding, polyuria, polydipsia. Immunologic/Allergic: Denies: splenectomy, HIV/AIDS, lymphadenopathy. All Other Systems: Reviewed and Negative Exam & Diagnostic Data Vital Signs and I&O Vital Signs Date Time Temp Pulse Resp B/P Pulse O2 O2 Flow FiO2 Ox Delivery Rate 01/09 1421 Nasal 4.0L Cannula 01/09 1108 96.7 74 18 107/64 96 Room Air 01/09 0839 98.0 68 18 109/58 99 Nasal 4.0L Cannula 01/09 0643 94 Nasal 4.0L Cannula 01/09 0637 96.5 82 20 151/72 94 Nasal 4.0L Cannula Intake & Output 01/09 1600 01/09 0400 01/08 1600 01/08 0400 01/07 1600 01/07 0400 Intake Total 375 Output Total Balance 375 Intake, IV 375 Patient 150 lb Weight Physical Exam: Well-developed, well-nourished, slightly agitated female, in no apparent distress. Somewhat anxious. Sclera anicteric. Conjunctiva pink. Oropharynx clear. No oral thrush. No aphthous ulcers. Poor dentition.There is no adenopathy, thyromegaly, or JVD. No peripheral stigmata of inflammatory bowel disease or chronic liver disease on exam. No CVA tenderness. Mild lumbar spine tenderness. Breast & pelvic: API. No spiders on the anterior chest wall. Lungs: B/L wheezes, R > L, without rales or rhonchi. Decreased BS RUL. Heart exam: regular rate rhythm, S1 and S2, without any murmur. Abdominal exam: normal bowel sounds, soft belly, mildly distended, multiple scars, minimal RLQ tenderness, without guarding or rebound. Pain pump palpated in LLQ, otherwise no palpable hernia or mass. No organomegaly. No fluid shift. No pulsatile mass. No epigastric bruit. Digital rectal exam: deferred by patient. Extremities: without C, C, or E. No palpable cords. DJD. Distal pulses 1+ bilaterally. DTRs 1+ bilaterally. Right handed. CN II-XII intact. Motor 5/5 B/ L. A detailed exam for peripheral neuropathy was deferred, but is present by history. Alert and oriented x 3. No tremor or asterixis. Results Pertinent Lab Results: Laboratory Tests 01/09 01/09 0950 0707 Chemistry Sodium (137 - 145 mmol/L) 140 Potassium (3.5 - 5.1 mmol/L) 3.8 Chloride (98 - 107 mmol/L) 96 L Carbon Dioxide (22 - 30 mmol/L) 37 H Anion Gap (5 - 16) 6 BUN (7 - 17 mg/dL) 12 Creatinine (0.5 - 1.0 mg/dL) 0.5 Estimated GFR (>60 ml/min) > 60 BUN/Creatinine Ratio (7 - 25 %) 24.0 Glucose (65 - 99 mg/dL) 295 H Lactic Acid (0.7 - 2.1 mmol/L) Cancelled 1.0 Calcium (8.4 - 10.2 mg/dL) 9.4 Total Bilirubin (0.2 - 1.3 mg/dL) 0.6 AST (14 - 36 U/L) 28 ALT (9 - 52 U/L) 44 Alkaline Phosphatase (<127 U/L) 109 Total Protein (6.3 - 8.2 g/dL) 6.6 Albumin (3.5 - 5.0 g/dL) 3.8 Globulin (1.9 - 4.2 gm/dL) 2.8 Albumin/Globulin Ratio (1.1 - 2.2 %) 1.4 Amylase (30 - 110 U/L) 33 Lipase (23 - 300 U/L) 15 L Coagulation PT (9.4 - 12.5 SEC) 10.3 INR (0.90 - 1.19) 0.98 APTT (25 - 37 SEC) 32 Hematology CBC w Diff NO MAN DIFF REQ WBC (4.8 - 10.8 /CUMM) 10.6 RBC (4.20 - 5.40 /CUMM) 5.31 Hgb (12.0 - 16.0 G/DL) 14.8 Hct (37 - 47 %) 46.5 MCV (81.0 - 99.0 FL) 87.7 MCH (27.0 - 31.0 PG) 27.9 RDW (11.5 - 14.5 %) 13.0 Plt Count (130 - 400 /CUMM) 259 MPV (7.4 - 10.4 FL) 8.3 Gran % (42.2 - 75.2 %) 75.9 H Lymphocytes % (20.5 - 51.1 %) 15.7 L Monocytes % (1.7 - 9.3 %) 5.8 Eosinophils % (0 - 5 %) 1.9 Basophils % (0.0 - 2.0 %) 0.7 Absolute Granulocytes (1.4 - 6.5 /CUMM) 8.0 H Absolute Lymphocytes (1.2 - 3.4 /CUMM) 1.7 Absolute Monocytes (0.10 - 0.60 /CUMM) 0.6 Absolute Eosinophils (0.0 - 0.7 /CUMM) 0.2 Absolute Basophils (0.0 - 0.2 /CUMM) 0.1 PUBS MCHC (33.0 - 37.0 G/DL) 31.8 L Imaging/Other Studies: (*No EKG on chart) 01/09/2017: CT ABDOMEN AND PELVIS WITH IV CONTRAST- Diffuse fatty liver without focal lesion. Post CCKY w/o dilated ducts. Diffuse attenuation of pancreas with slight thickening and peripancreatic haziness suspicious for pancreatitis (*normal lipase). Differential diagnosis includes fatty infiltration. Nonspecific prominent ascending and transverse colon with fluid but no air-fluid level, distention, or obstruction seen. No hernia. There is no free air or free fluid. PEPE. SAIDA. Assessment/Plan Assessment/Recommendations: 61-year-old female, DM x 20 years with neuropathy/HLD/Vit D def/eczema/anxiety, with severe O2 dependent COPD (4-5L)- *still smoking, post RUL lobectomy for lung Ca & CTX, who stated she allegedly had Crohn's disease, although per my discussion with Dr. Solano & review of her records in [place], [place], this has not been the case. She has had numerous surgeries, including PEPE, AP, sigmoid colectomy 03/30/1996 (path: without IBD, ? *diverticulitis), reversal of colostomy, open CCKY 2008, & 10/22/15: laparoscopic repair of incarcerated incisional hernia. She also reportedly had right hemicolectomy in 2007 (? why), but again, there was no definite Crohn's disease. She has chronic pain syndrome , on narcotic analgesics, including 3 Fentanyl patches (mid-abdomen & breasts B/ L) & a Fentanyl pain pump. She is also on Diazepam & medical marijuana. She denies any street drugs or EtOH. The records state she has a spinal cord stimulator implant, but the patient claimed this was part of her pain pump, a portion of which is located in her LLQ. She also claimed that her pain pump "broke" a few years ago, causing her to go into "opiate withdrawal," and that it was repaired. 12/30/2016: *Utox- benzo > 800, OP/MS > 4K, cannabis > 80. Relatively recent endoscopic workup per Dr. Solano failed to show any active IBD, although the terminal ileum could not be intubated. The patient's previous records indicated that her prior surgeries were for diverticular disease, not IBD. *A PillCam was suggested by Dr. Solano at her last OV of 02/16/2016, but the patient never had this. *The patient now claims she had a PillCam per Dr. Ramos in [place] a few years before this, which "showed Crohn's." (Dr. Ramos then moved rto [place].) The patient has a history of GERD, well controlled on Prevacid, without any odynophagia or dysphagia. *Her nausea & vomiting was felt to be from gastroparesis, and her symptoms previously responded to Zofran. There was consideration for a gastric scintiscan, but this was not done (If done, it certainly could have been falsely positive from her narcotic analgesics and/or cannabis.) She has diarrhea that was felt to be functional in nature, as she "overshot" with antidiarrheal agents, and became constipated. Questran was suggested at the last GI visit, for possible post-CCKY loose stools. I am not certain if the patient was compliant with this. 01/02/2016: *EGD/Colonoscopy to cecum per Dr. Solano- nonerosive GERD, with biopsy at [facility] at 40 cm- gastric mucosa with mild chronic and minimal acute inflammation, HP-neg; nonerosive gastritis- bxs gastric antrum- mental chronic antral gastritis, HP-neg; bxs gastric body- mild congestion, HP-neg; *suggestion of gastroparesis with mildly decreased peristalsis and moderate amount of leftover bile (patent pylorus w/o GOO or PUD), random duodenal biopsies- unremarkable. Sigmoid diverticula; diminutive rectal "polyp"- unremarkable tissue, normal surgical anastomosis at 65 cm, bx- negative; random biopsy of right colon- negative; biopsy of left colon- melanosis coli; poor prep (followup colonoscpy advised in 1-2 years); no gross IBD; small internal hemorrhoids. *The patient presented to the [facility] 01/09/2017 at 6:28 a.m. complaining of nausea, vomiting, and intractable chronic abdominal pain. Upon arrival, BP 151/ 72, P 82, R 20, T 96.5, O2 sat 4L- 94%. She was given IV NS & Zofran in the ER, at [facility], they replaced her 3 old Fentanyl patches & replaced them with new ones. Approximately 2 weeks WOOD BUFFER, the patient had an episode of self-limited abdominal pain and nausea, for which she visited the [facility]. She then was back to baseline for the next 10 days. 2 days WOOD BUFFER, she had 1 episode of large-volume, brown, watery diarrhea, perhaps with some scant mucus, but no blood or melena. The patient claims she has not had diarrhea for > 1 day, but that in the past it can be very frequent. It is very difficul to assess from the patient whether her loose stools arerelated to eating. She then developed some subtle RLQ pain, progressing to "8 of 10," with the above nausea vomiting, and loss of appetite. She has mild early satiety. She denied any recent travel, raw food ingestion, NSAIDs, ASA, recent antibiotics, sick contacts, fevers, chills, symptoms of UTI, chest pain, or worsening of her baseline shortness of breath. She has a chronic cough from her COPD & continued smoking. The vomitus was bilious, without any hematemesis. Her appette is good and her weight is relatively stable. There is no family history of GI Ca, IBD, or inherited liver disease. The patient claims both her parents had PUD & that her mother had divertuclitis. 02/22/2014: HIV- negative. 07/18/2015: Hep A Ab, Hep Bs Ag. Hep B core Ab, & Hep C Ab- all negative. 01/09/2017: Admission labs- WBC 10.6 (76% gran/8 gran Ab), H/H 14.8/46.5,MCV 87.7, PLT 259, PT 10.3, INR 0.98, PTT 32, glu 295, BUN/Cr 12/0.5, GFR > 60, Na 140, K 3.8, Cl 97, HCO3 37, AG 6, nl lactate 1.0, amylase 33, lipas 15, Ca 9.4, albumin 3.8, globulin 2.8, TBil 0.6, alk phos 109, AST 28, ALT 44. 01/09/2017: CT ABDOMEN AND PELVIS WITH IV CONTRAST- Diffuse fatty liver without focal lesion. Post CCKY w/o dilated ducts. Diffuse attenuation of pancreas with slight thickening and peripancreatic haziness suspicious for pancreatitis (*normal lipase). Differential diagnosis includes fatty infiltration. Nonspecific prominent ascending and transverse colon with fluid but no air-fluid level, distention, or obstruction seen. No hernia. There is no free air or free fluid. PEPE. DJD. *Differential diagnosis for the above includes gastroenteritis and/or gastroparesis, the latter probably exacerbated by chronic narcotic use, as well as cannabis. She is also a diabetic. Having stated that, opioid withdrawal can give nausea & vomiting, as well. There has been no objective evidence of Crohn's disease per Dr. Solano's workup, nor on any previous workups, *although the patient claims a previous PillCam by Dr. Ramos a few years ago "showed Crohn's". The patient has chronic pain syndrome (abdomen/back). It is possible she could have intermittent SBO due to her numerous surgeries, but none was seen on the admission CT. The fatty liver is noted. It appears that she has some fatty pancreatic tissue. The normal lipase goes against pancreatitis. SUGGEST: Gentle IV fluids. Clears po as tolerated. Zofran 4 mg IV Q8h. IV Protonix 40 mg daily for GERD. Consider gastric scintiscan, but this may be falsely positive due to chronic narcotic use & cannabis use. Consideration for Reglan (if given, should be after gastric scintiscan is done), if patient accepts the risks of extrapyramidal side effects. Consideration for repeat outpatient PillCam, but would need patency capsule first, with multiple surgeries (*patient claims previous PillCam a few years prior to [address] Ramos "showed Crohn's".) Try to limit narcotic analgesics. If diarrhea becomes problematic, try adding Questran Light 4g po TID, 1/2 hour before meals. Check stool C&S, C. difficile, Shiga toxin, fecal calprotectin & fecal elastase (? fatty pancreas on CT). Check stool for OB (patient refused digital rectal exam). Risk factor modification for fatty liver, including strict control of body weight, blood sugar, lipids, BP & EtOH. Vitamin E 800 IU po daily for fatty liver. D/C cigarettes! Consider checking ESR & CRP, but no previous objective evidence of Crohn's disease (aside from the questionable PillCam- ? validity). Consider checking TFTs with TSH, & HgA1C. Consider checking celiac panel, to include IgA, tTG Ab & DGP Ab, although 01/02/2016: duodenal bxs- normal villi. DVT prophylaxis. Other numerous issues per medical team. Further GI recommendations to follow, depending on clinical course. Consideration for repeat colonoscopy within the year (as poor prep on 01/02/2016). Dr. Solano will assume the patient's GI care tomorrow, 01/10. Problem List: 1. Nausea & vomiting 2. Gastroparesis 3. Chronic pain syndrome 4. Diarrhea 5. Gastroenteritis 6. GERD (gastroesophageal reflux disease) 7. Diverticulosis 8. Fatty liver Copies To: EDMOND PINTO,TORRES Benitez; TAMMI PINTO,SAVANASHYAM; ASTRID PINTO,MARY GARCIA MD,CARLOS Ashby; DEMETRI PINTO,COTY Cannon; SAUNDRA PINTO,[facility] Consult Acknowledgment - Thank you for your consult request.
--- NOTE | 2017-01-09 17:04 | PN- Student ---
Subjective Subjective: CC: abdominal pain/nausea x1 day and vomiting overnight Source: patient and old chart HPI: 61yo female with extensive GI history including Crohn disease, multiple GI surgeries, COPD on 4L home O2 s/p right upper lobectomy for lung ca, and DM presents to the ED this morning with abdominal pain/nausea x1 day and vomiting since 4am. Pt reports she was in her usual good state of health for the past several days until yesterday when her abdominal pain and nausea began. Pt states she tried to "fight" the nausea all day yesterday, and vomiting began early this morning at 4am. Per pt, bilious emesis, denies blood. Pt states abdominal pain is constant 8/10, characterized as "abdominal pain" and "waves." Zofran and "the pot" make it better. Denies exacerbating factors. Pt states she is taking medical marijuana. Pt reports chronic abdominal pain. Pt reports mucus stool this morning, denies flatus. Pt attributes her current symptoms to discontinuing ketamine in early Oct 2016. Pt states she stopped ketamine on her own, then felt "withdrawal symptoms" from Oct through last Tuesday. Pt states she was told by a PA that she could be experiencing "latent withdrawal symptoms." Pt states she also thought her sx may be due to a dysfunction in her pain pump which she has experienced before. Pain pump was tested last Tuesday and found to be functioning normally. Allergies: sulfa drugs - hives compazine - restless leg, "jumping out of skin" ticonazole - vaginal swelling metoclopramide - restless leg clarithromycin - hives Home Medications (confirmed with pt): Diazepam 5 MG TABLET 1 TAB PO TID ANXIETY (Reported) Ergocalciferol (Vitamin D2) (Vitamin D2) 50,000 UNIT CAPSULE 1 CAP PO QMON SUPPLEMENT (Reported) Fentanyl 100 MCG/HOUR PATCH.TD72 2 PAT TOP Q48 PAIN (Reported) Fentanyl 75 MCG/HOUR PATCH.TD72 1 PAT TOP Q48 PAIN (Reported) Furosemide (Lasix) 40 MG TABLET 1 TAB PO DAILY PRN DIURETIC (Reported) Halobetasol Propionate 15 GM CREAM..G. 1 BERE TOP BID BOTH HANDS ECZEMA ( Reported) Insulin Aspart, Recombinant (Novolog Flexpen) (Unknown Strength) INSULN.PEN ( Unknown Dose) SEE SLIDING SCALE PRN DM (Reported) Insulin Glargine,Hum.rec.anlog (Toezequiel Bermudezostar) 300 UNIT/ML (1.5 ML) INSULN.PEN 60 UNITS SQ BID DIABETES (Reported) Ipratropium/Albuterol Sulfate (Iprat-Albut 0.5-3(2.5) MG/3 Ml) 0.5 MG-3 MG (2.5 MG BASE)/3 ML AMPUL.NEB 1 VIAL INH/SCOTT BID PRN COPD (Reported) Lansoprazole (Prevacid) 30 MG CAPSULE.DR 1 CAP PO DAILY ACID REFLUX (Reported ) Ondansetron (Ondansetron Odt) 8 MG TAB.RAPDIS 1 TAB PO Q6 PRN NAUSEA/VOMITING (Reported) Simvastatin (Zocor*) 10 MG TABLET 1 TAB PO QPM CHOLESTEROL (Reported) Pain pump - fentanyl/buvicane IP Medications: Current Medications Sig/Muriel Start time Last Medication Dose Route Stop Time Status Admin Albuterol Sulfate 3 ML BID 01/09 2200 AC INH Diazepam 0 .STK-MED ONE 01/09 1015 DC .ROUTE Diazepam 5 MG Q8 01/09 0957 01/09 IV 1353 Fentanyl Citrate 200 MCG Q48 01/09 1000 01/09 TOP 1059 Fentanyl Citrate 75 MCG Q48H 01/09 1000 01/09 TOP 1059 Heparin Sodium 0 .STK-MED ONE 01/09 1111 DC (Porcine) .ROUTE Heparin Sodium 5,000 UNIT Q8 01/09 0930 01/09 (Porcine) SC 1329 Insulin Human Regular 0 Q6 01/09 1200 01/09 SC 1525 Ipratropium [place] 2.5 ML BID 01/09 2200 AC INH Lactated Ringer's 1,000 ML .Q6H40M 01/09 1415 AC 01/09 IV 1525 Ondansetron HCl 4 MG Q8 01/09 1400 AC IV Ondansetron HCl 4 MG ONCE ONE 01/09 1300 DC 01/09 IV 01/09 1301 1326 Ondansetron HCl 0 .STK-MED ONE 01/09 0916 DC .ROUTE Ondansetron HCl 4 MG ONCE ONE 01/09 0915 DC 01/09 IV 01/09 0916 0918 Ondansetron HCl 0 .STK-MED ONE 01/09 0718 DC .ROUTE Ondansetron HCl 4 MG ONCE ONE 01/09 0700 DC 01/09 IV 01/09 0701 0720 Pantoprazole Sodium 40 MG DAILY 01/09 1247 AC 01/09 IV 1353 Patient Medication 1 UNIT ONE NR 01/09 1015 DC Teaching ED 01/09 1030 Sodium Chloride 1,000 ML ONCE ONE 01/09 0945 DC 01/09 IV 01/09 1744 1353 Sodium Chloride 1,000 ML BOLUS ONE 01/09 0915 DC 01/09 IV 01/09 1014 0918 Sodium Chloride 1,000 ML BOLUS ONE 01/09 0700 DC 01/09 IV 01/09 0759 0720 Trimethobenzamide HCl 200 MG ONCE ONE 01/09 1745 DC IM 01/09 1746 PMH: PCP: Dr. Terrell GI: Dr. Solano Pain: Dr. Ramirez Chronic abdominal pain - managed by [facility] at COPD s/p RUL lobectomy due to lung ca, per pt in her 40's [place] esophagus GERD gastroparesis DM, insulin dependent anxiety ovarian cyst PSHx: incarcerated incisional hernia repair, 10/22/15 PEPE cholecystectomy rt hemicolectomy for diverticulitis per Dr. Solano sigmoid colectomy, 1995 appendectomy tonsilectomy Pain Pump FHx: Mother: PR, DM Father: PR, DM, bladder ca 2 Sisters/2 aunts: breast ca Brother: LIVER ca (confirmed with pt), 48yo Brother: 5yo, MVA SH: Pt states she lives at home with her who was diagnosed with lung ca. She has a son who lives in the area and is supportive. She has a daughter who is dependent on EtOH and lives in [place]. Not currently working, on disability due to chronic pain. Pt smokes 5 cigarettes/day. Smoking since 19yo. Denies EtOH, denies recreational drug use. ROS: Constitutional: +chills in the afternoons, decreased appetite, reports 15lbs weight loss time frame unspecified CV: denies chest pain Pulm: SOB from COPD, no change or exacerbation GI: see HPI, chronic abdominal pain managed by pain clinic MSK: denies muscle/bone/joint pain : denies pain or burning with urination Endo: denies urinary frequency Neuro: denies h/a, denies changes to hearing or vision Objective Objective: Vital Signs Date Time Temp Pulse Resp B/P Pulse O2 O2 Flow FiO2 Ox Delivery Rate 04/16 1836 58 16 128/70 97 Nasal 4.0L Cannula 01/09 1421 Nasal 4.0L Cannula 01/09 1138 98 Nasal 4.0L Cannula 01/09 1138 97.8 78 18 100/58 98 Nasal 4.0L Cannula 01/09 1108 96.7 74 18 107/64 96 Room Air 01/09 0839 98.0 68 18 109/58 99 Nasal 4.0L Cannula 01/09 0643 94 Nasal 4.0L Cannula 01/09 0637 96.5 82 20 151/72 94 Nasal 4.0L Cannula Physical Exam: Gen: sitting comfortably in bed, NAD HEENT: NCAT, EOMI, PERRLA, no scleral icterus, mucosa/tongue NL, oropharynx without erythema/exudates CV: S1S1, regular rate and rhythm, no murmurs/rubs/gallops Lung: CTABL Abd: ND, several surgical scars, fentanyl patch left of midline, +bowel sounds, soft, mildly tender to palpation, no rebound tenderness, no guarding Ext: no edema Skin: warm, well-perfused Neuro: AAOx3, CN II-XII grossly intact Psych: broad affect, tearful when discussing daughter with alcoholism and with lung ca Results Results: Laboratory Tests 01/09 01/09 0950 0707 Chemistry Sodium (137 - 145 mmol/L) 140 Potassium (3.5 - 5.1 mmol/L) 3.8 Chloride (98 - 107 mmol/L) 96 L Carbon Dioxide (22 - 30 mmol/L) 37 H Anion Gap (5 - 16) 6 BUN (7 - 17 mg/dL) 12 Creatinine (0.5 - 1.0 mg/dL) 0.5 Estimated GFR (>60 ml/min) > 60 BUN/Creatinine Ratio (7 - 25 %) 24.0 Glucose (65 - 99 mg/dL) 295 H Lactic Acid (0.7 - 2.1 mmol/L) Cancelled 1.0 Calcium (8.4 - 10.2 mg/dL) 9.4 Total Bilirubin (0.2 - 1.3 mg/dL) 0.6 AST (14 - 36 U/L) 28 ALT (9 - 52 U/L) 44 Alkaline Phosphatase (<127 U/L) 109 Total Protein (6.3 - 8.2 g/dL) 6.6 Albumin (3.5 - 5.0 g/dL) 3.8 Globulin (1.9 - 4.2 gm/dL) 2.8 Albumin/Globulin Ratio (1.1 - 2.2 %) 1.4 Amylase (30 - 110 U/L) 33 Lipase (23 - 300 U/L) 15 L Coagulation PT (9.4 - 12.5 SEC) 10.3 INR (0.90 - 1.19) 0.98 APTT (25 - 37 SEC) 32 Hematology CBC w Diff NO MAN DIFF REQ WBC (4.8 - 10.8 /CUMM) 10.6 RBC (4.20 - 5.40 /CUMM) 5.31 Hgb (12.0 - 16.0 G/DL) 14.8 Hct (37 - 47 %) 46.5 MCV (81.0 - 99.0 FL) 87.7 MCH (27.0 - 31.0 PG) 27.9 RDW (11.5 - 14.5 %) 13.0 Plt Count (130 - 400 /CUMM) 259 MPV (7.4 - 10.4 FL) 8.3 Gran % (42.2 - 75.2 %) 75.9 H Lymphocytes % (20.5 - 51.1 %) 15.7 L Monocytes % (1.7 - 9.3 %) 5.8 Eosinophils % (0 - 5 %) 1.9 Basophils % (0.0 - 2.0 %) 0.7 Absolute Granulocytes (1.4 - 6.5 /CUMM) 8.0 H Absolute Lymphocytes (1.2 - 3.4 /CUMM) 1.7 Absolute Monocytes (0.10 - 0.60 /CUMM) 0.6 Absolute Eosinophils (0.0 - 0.7 /CUMM) 0.2 Absolute Basophils (0.0 - 0.2 /CUMM) 0.1 PUBS MCHC (33.0 - 37.0 G/DL) 31.[address] Abd/Pelvis IMPRESSION: Diffuse fatty liver without focal lesion. Diffuse attenuation of pancreas with slight thickening and peripancreatic haziness suspicious for pancreatitis. Differential diagnosis includes fatty infiltration. Nonspecific prominent ascending and transverse colon with fluid but no air-fluid level, distention, or obstruction seen. There is no free air or free fluid. Assessment/Plan Assessment: Pt is a 61yo female with extensive past medical/surgical history significant for sigmoid colectomy, rt hemicolectomy, PEPE, Crohn's, DM, and COPD on 4L home O2 s/ p RUL lobectomy for lung ca admitted to for intractible nausea, 8/10 abdominal pain and vomiting. Plan: #1 abdominal pain: Pt admitted to with 8/10 pain in the RUQ which she describes as "blowing up under the ribs" and extending down to the RLQ. CT Imaging with IV contrast today demonstrates "Nonspecific prominent ascending and transverse colon with fluid but no air-fluid level, distention, or obstruction seen." Pt has history of right hemicolectomy for diverticulitis, per medical record, and frequent admissions for abdominal pain. Past medical records document a colonic mass seen on CT in 2009 ast which time pt declined work up and treatment. CT with IV contrast today also shows "diffuse fatty liver without focal lesion" which is consistent with previous imaging. "Diffuse attenuation of pancreas with slight thickening and peripancreatic haziness suspicious for pancreatitis." Serum lipase 15 U/L which makes pancreatitis less likely. GI Consulted. Per GI, recent colonoscopy by Dr. Solano did not show active IBD. Pt has several admissions for similar symptoms. Per pt, Dr. Prabhakar told her she has extensive abdominal adhesions s/p several abdominal surgeries. Differential Dx for her abdominal pain includes exacerbation of her chronic pain , decreased bowel motility complicated by manager long term care narcotics use, gastroparesis , SBO. #2 nausea/vomiting: Pt vomited once in the ED, denies vomiting since admission. Continue to manage nausea with Zofran. Supplement with Tigan PRN. #3 chronic DM: glucose 295mg/dL on admission Continue on home insulin on sliding scale as pt is on clear liquid diet. Maintenance fluids - NS at 75ml/hr BG Finger sticks Q6H, monitor for hypoglycemia Consider HbA1C #4 chronic COPD: continue on 4L O2 NC monitor SpO2 Monocytes % (1.7 - 9.3 %) 5.8 Eosinophils % (0 - 5 %) 1.9 Basophils % (0.0 - 2.0 %) 0.7 Absolute Granulocytes (1.4 - 6.5 /CUMM) 8.0 H Absolute Lymphocytes (1.2 - 3.4 /CUMM) 1.7 Absolute Monocytes (0.10 - 0.60 /CUMM) 0.6 Absolute Eosinophils (0.0 - 0.7 /CUMM) 0.2 Absolute Basophils (0.0 - 0.2 /CUMM) 0.1 PUBS MCHC (33.0 - 37.0 G/DL) 31.[address] Abd/Pelvis IMPRESSION: Diffuse fatty liver without focal lesion. Diffuse attenuation of pancreas with slight thickening and peripancreatic haziness suspicious for pancreatitis. Differential diagnosis includes fatty infiltration. Nonspecific prominent ascending and transverse colon with fluid but no air-fluid level, distention, or obstruction seen. There is no free air or free fluid. Assessment/Plan Assessment: Pt is a 61yo female with extensive past medical history significant for rt hemicolectomy, Crohn's, DM, COPD on 4L home O2 s/p RUL lobectomy for lung ca, and colonic mass admitted to for intractible nausea and abdominal pain. Plan: #1 abdominal pain #2 vomiting #3 chronic DM: glucose 295mg/dL on admission. Continue on home insulin on sliding scale as pt is on clear liquid diet. BG Finger sticks Q6H, monitor for hypoglycemia Consider HbA1C #4 chronic COPD: continue on 4L O2
[2017-01-09 18:36] VITALS: BP 128/70
[2017-01-09 22:53] VITALS: BP 116/58
[2017-01-10 06:38] VITALS: BP 122/76
--- NOTE | 2017-01-10 07:39 | PN- Housestaff ---
JESSICA ADAMSON 01/10/17 0739: Subjective Follow-up For: Nausea/vomiting Subjective: Seen and examined patient. States that she is feeling better today in terms of her nausea, has not had any further episodes of vomiting. She has tolerated her clear diet which was ordered yesterday evening. Would like to advance her diet. Denies fever, chills, worsening of her abdominal pain. Patient noted to be ambulating comfortably and independently on the floor. Review of Systems Constitutional: Denies: chills, diaphoresis, fever, malaise, weakness, unexplained weight loss. Cardiovascular: Denies: chest pain, edema, orthopena, palpitations, peripheral edema, syncope. Respiratory: Denies: cough, hemoptysis, orthopnea, short of breath, sputum production, stridor, wheezing. Objective Last 24 Hrs of Vital Signs/I&O Vital Signs Date Time Temp Pulse Resp B/P Pulse O2 O2 Flow FiO2 Ox Delivery Rate 01/10 1425 98.1 73 20 138/77 98 Nasal 5.0L Cannula 01/10 1036 99 Nasal 4.0L Cannula 01/10 0638 98.6 58 18 122/76 98 Nasal 4.0L Cannula 01/10 0000 Nasal 4.0L Cannula 01/09 2253 98.2 60 20 116/58 93 Room Air 01/09 1836 58 16 128/70 97 Nasal 4.0L Cannula Intake & Output 01/10 1600 01/10 0800 01/10 0000 Intake Total 870 1080 465 Output Total Balance 870 1080 465 Intake, IV 350 600 225 Intake, Oral 520 480 240 Number 0 Bowel Movements Physical Exam General Appearance: Alert, Oriented X3, Cooperative, No Acute Distress Cardiovascular: Regular Rate, Normal S1, Normal S2 Lungs: Clear to Auscultation, Normal Air Movement Abdomen: Normal Bowel Sounds, Soft, tenderness to palpation in r/llQ Current Medications: Current Medications Sig/Muriel Start time Last Medication Dose Route Stop Time Status Admin Albuterol Sulfate 3 ML BID 01/09 2200 AC 01/10 INH 1034 Dextrose/Sodium 1,000 ML Q13H 01/09 1830 DC 01/09 Chloride IV 1902 Diazepam 10 MG .STK-MED ONE 01/10 0621 DC IM 01/10 0622 Diazepam 10 MG .STK-MED ONE 01/09 2149 DC IM 01/09 2150 Diazepam 5 MG .STK-MED ONE 01/09 2144 DC PO 01/09 2145 Diazepam 5 MG Q8 01/09 0957 01/10 IV 1323 Fentanyl Citrate 200 MCG Q48 01/09 1000 01/09 TOP 1059 Fentanyl Citrate 75 MCG Q48H 01/09 1000 01/09 TOP 1059 Heparin Sodium 5,000 UNIT Q8 01/09 0930 01/10 (Porcine) SC 0630 Insulin Aspart 0 TIDAC 01/10 0800 01/10 SC 1322 Insulin Human Regular 0 Q6 01/09 1200 DE 01/09 SC 1906 Ipratropium [place] 2.5 ML BID 01/09 2200 AC 01/10 INH 1034 Lactated Ringer's 1,000 ML .Q6H40M 01/09 1415 DC 01/09 IV 1525 Ondansetron HCl 4 MG Q8 01/09 1400 AC 01/10 IV 1331 Pantoprazole Sodium 40 MG DAILY 01/09 1247 01/10 IV 0856 Patient Medication 1 ED .STK-MED ONE 01/10 1324 DC Teaching ED 01/10 1325 Sodium Chloride 1,000 ML Q20H 01/09 2315 AC 01/09 IV 2310 Trimethobenzamide HCl 200 MG TID PRN 01/10 0115 01/10 IM 0111 Trimethobenzamide HCl 200 MG ONCE ONE 01/09 1745 DE 01/09 IM 01/09 1746 1902 Vitamin E 800 IU DAILY 01/10 1000 01/10 PO 0857 Last 24 Hrs of Lab/T[place]on Results Last 24 Hrs of Labs/Mics: Laboratory Tests 01/10/17 0636: Anion Gap 8, Estimated GFR > 60, BUN/Creatinine Ratio 13.3, CBC w Diff NO MAN DIFF REQ, RBC 4.96, MCV 87.9, MCH 28.6, RDW 12.9, MPV 8.7, Gran % 65.8, Lymphocytes % 25.7, Monocytes % 5.5, Eosinophils % 2.5, Basophils % 0.5, Absolute Granulocytes 6.2, Absolute Lymphocytes 2.4, Absolute Monocytes 0.5, Absolute Eosinophils 0.2, Absolute Basophils 0, PUBS MCHC 32.5 L Assessment/Plan Assessment: 61-year-old woman current smoker with past medical history significant for on standing diabetes, complicated neuropathy, status -post RUL lobectomy for lung Ca & Chemotherapy,multiple abdominal surgeries PEPE, sigmoid colectomy 03/30/1996 , reversal of colostomy, open CCKY 2008, & 10/22/15: laparoscopic repair of incarcerated incisional hernia, chronic pain syndrome on 3 Fentanyl patches,a Fentanyl pain pump, Diazepam & medical marijuana. Current admission for nausea and vomiting. CT abdomen positive for Diffuse fatty liver without focal lesion, Diffuse attenuation of pancreas with slight thickening and peripancreatic haziness, no elevation of amylase or lipase. Problem list Nausea/ vomiting Chronic pain syndrome Plan: States that she is feeling much improved, has recently undergone ketamine taper, symptoms possible secondary to this. Tolerated regular diet with no issues. 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 Recommended for her to follow-up with her primary care physician and GI specialist as outpatient. Follow-up with her pain management . Medically stable for discharge today DVT prophylaxis with subcutaneous heparin Patient is DNR/DNI Problem List: 1. Diabetes mellitus type 2 Pain Ratin Pain Location: na Pain Goal: Pain 4 or less Pain Plan: current regimen Tomorrow's Labs & Rationales: none required DAISY WILLIAM MD 01/10/17 1335: Attending MD Review Statement Attending Statement Attending MD Statement: examined this patient, discuss w/resident/PA/NEUROSURGERY RESEARCH DIRECTOR, agreed w/resident/PA/NEUROSURGERY RESEARCH DIRECTOR, discussed with family, reviewed EMR data (avail), discussed with nursing, discussed with case mgmt, amended to note Attending Assessment/Plan: Patient seen and examined. Lying in bed and not in any acute distress. present at the bedside. She reports feeling better today. She is tolerating a clear liquid diet and he had to be discharged home today. Patient reports that she feels that her symptoms are secondary to withdrawal from ketamine which she stopped taking on her own back in September. She states that she never tolerated the medication which is worse. Mr. abdominal pain but states that this is chronic for her. Abdominal pain according to her secondary to her Crohn's disease for which she was referred to pain management doctor by her plastic surgery manager. She is on fentanyl patches, fentanyl pump, medical marijuana. She reports that her pain waxes and wanes baseline. She also admits to generalized abdominal tenderness at this time. She denies symptoms currently worse than her baseline symptoms. She admits to having a bowel movement yesterday. On examination abdomen is nondistended, with normal bowel sounds. It is soft with diffuse tenderness particularly in the epigastric region. Patient reports that this is baseline for her.. She has no rebound or guarding. He did showed diffuse attenuation of the pancreas with slight thickening and peripancreatic haziness suspicious for pancreatitis. However lipase level is not elevated. Differential diagnosis includes fatty infiltration which was noted on prior CT imaging. Recommendations -Intractable nausea vomiting; now resolved. Query secondary to withdrawal from ketamine. -No evidence of acute intra-abdominal pathology at present. -Advance diet. If patient tolerates she may be discharged home today. -She has been advised to follow-up with her primary care provider and gastroenterology service as an outpatient.
[2017-01-10 08:20] LABS: ABSOLUTE BASOPHIL COUNT 0 /CUMM (0.0-0.2); ABSOLUTE EOSINOPHIL COUNT 0.2 /CUMM (0.0-0.7); ABSOLUTE GRANULOCYTE CT 6.2 /CUMM (1.4-6.5); ABSOLUTE LYMPH COUNT 2.4 /CUMM (1.2-3.4); ABSOLUTE MONOCYTE COUNT 0.5 /CUMM (0.10-0.60); BASOPHIL % 0.5 % (0.0-2.0); EOSINOPHIL % 2.5 % (0-5); GRANULOCYTE % 65.8 % (42.2-75.2); HEMATOCRIT 43.6 % (37-47); MEAN CORPUSCULAR HGB 28.6 PG (27.0-31.0); MEAN CORPUSCULAR HGB CONC 32.5 G/DL (33.0-37.0); MEAN CORPUSCULAR VOLUME 87.9 FL (81.0-99.0); MEAN PLATELET VOLUME 8.7 FL (7.4-10.4); PLATELET COUNT 236 /CUMM (130-400); RBC DISTRIBUTION WIDTH 12.9 % (11.5-14.5); RED BLOOD CELL CT 4.96 /CUMM (4.20-5.40); WHITE BLOOD CELL COUNT 9.4 /CUMM (4.8-10.8)
[2017-01-10] MEDS ORDERED: VITAMIN E400 UNI1 PO (11:25)
--- NOTE | 2017-01-10 11:28 | Patient Discharge Instructions ---
Discharge Instructions General Discharge Information You were seen/treated for: nausea vomiting Special Instructions: please follow up with your primary doctor within one week of discharge please follow up with your international marketing coordinator within two weeks of discharge please follow up with your Pain speciailist as required Diet Recommended Diet: low fiber Acute Coronary Syndrome Inclusion Criteria At DC or during hospital stay patient has or had the following: ACS DIAGNOSIS No Discharge Core Measures Meds if any: Prescribed or Continued at Discharge Meds if any: NOT Prescribed or Continued at Discharge Congestive Heart Failure Inclusion Criteria At DC or during hospital stay patient has or had the following: CHF DIAGNOSIS No Discharge Core Measures Meds if any: Prescribed or Continued at Discharge Meds if any: NOT Prescribed or Continued at Discharge Cerebrovascular accident Inclusion Criteria At DC or during hospital stay patient has or had the following: CVA/TIA Diagnosis No Discharge Core Measures Meds if any: Prescribed or Continued at Discharge Meds if any: NOT Prescribed or Continued at Discharge Venous thromboembolism Inclusion Criteria VTE Diagnosis No VTE Type NONE VTE Confirmed by (Test) NONE Discharge Core Measures - Per Current guidelines, there needs to be overlap - treatment for the first 5 days of Warfarin therapy. - If discharged on Warfarin prior to 5 days of - overlap therapy, the patient will need to be - assessed for post discharge needs including - *Post discharge parental anticoagulation - *Warfarin and/or parental anticoagulation education - *Follow up date to check INR post discharge At least 5 days overlap therapy as Inpatient No Meds if any: Prescribed or Continued at Discharge Note: Overlap Therapy is Warfarin and Anticoagulant Meds if any: NOT Prescribed or Continued at Discharge
[2017-01-10 14:25] VITALS: BP 138/77
--- NOTE | 2017-01-10 14:57 | PN- Student ---
Subjective Subjective: CC: nausea Pt is a 61yo female with a PMH significant for complicated GI history, multiple abdominal surgeries, COPD on 4L home O2 s/p RUL lobectomy for lung ca, insulin dependent DM, and chronic pain syndrome treated by pain clinic admitted yesterday for intractible vomiting and 8/10 right-sided abdominal pain. Pt states pain in control today on fentanyl patches and pain pump which is her home pain regimen. Per nurse, one episode of nausea overnight treated with Tigan which helped. Pt states nausea improved today. Denies CP/SOB. Denies abd pain/ blood in stool. Pt denies recent travel, eating outside the home, ingestion of raw food/food sitting out, sick contacts. During pt interview, pt stated her nausea was increasing, and she stated she was starting to sweat. Pt stated nausea could be due to anxiety "because my has lung ca, I don't know." Today, pt denies withdrawal symptoms and denies symptoms are related to stopping ketamine in September which is a change from yesterday when she felt they were related. Pt states she is "tired of this now," and does not want to answer more questions. Pt requesting discharge today. Objective Objective: Vital Signs Date Time Temp Pulse Resp B/P Pulse O2 O2 Flow FiO2 Ox Delivery Rate 01/10 1425 98.1 73 20 138/77 98 Nasal 5.0L Cannula 01/10 1036 99 Nasal 4.0L Cannula 01/10 0638 98.6 58 18 122/76 98 Nasal 4.0L Cannula 01/10 0000 Nasal 4.0L Cannula 01/09 2253 98.2 60 20 116/58 93 Room Air 01/09 1836 58 16 128/70 97 Nasal 4.0L Cannula Physical Exam: Gen: standing next to the bed without nasal cannula, NAD CV: pt declined exam Lung: pt declined exam Abd: ND, +bowel sounds, soft, tender in the LRQ which is consistent with baseline, no rebound tenderness, no guarding Skin: warm, well-perfused Neuro: AAOx3 Psych: broad affect Results Results: Laboratory Tests 01/10 01/09 0636 0950 Chemistry Sodium (137 - 145 mmol/L) 139 Potassium (3.5 - 5.1 mmol/L) 4.5 Chloride (98 - 107 mmol/L) 99 Carbon Dioxide (22 - 30 mmol/L) 33 H Anion Gap (5 - 16) 8 BUN (7 - 17 mg/dL) 8 Creatinine (0.5 - 1.0 mg/dL) 0.6 Estimated GFR (>60 ml/min) > 60 BUN/Creatinine Ratio (7 - 25 %) 13.3 Lactic Acid Cancelled Hematology CBC w Diff NO MAN DIFF REQ WBC (4.8 - 10.8 /CUMM) 9.4 RBC (4.20 - 5.40 /CUMM) 4.96 Hgb (12.0 - 16.0 G/DL) 14.2 Hct (37 - 47 %) 43.6 MCV (81.0 - 99.0 FL) 87.9 MCH (27.0 - 31.0 PG) 28.6 RDW (11.5 - 14.5 %) 12.9 Plt Count (130 - 400 /CUMM) 236 MPV (7.4 - 10.4 FL) 8.7 Gran % (42.2 - 75.2 %) 65.8 Lymphocytes % (20.5 - 51.1 %) 25.7 Monocytes % (1.7 - 9.3 %) 5.5 Eosinophils % (0 - 5 %) 2.5 Basophils % (0.0 - 2.0 %) 0.5 Absolute Granulocytes (1.4 - 6.5 /CUMM) 6.2 Absolute Lymphocytes (1.2 - 3.4 /CUMM) 2.4 Absolute Monocytes (0.10 - 0.60 /CUMM) 0.5 Absolute Eosinophils (0.0 - 0.7 /CUMM) 0.2 Absolute Basophils (0.0 - 0.2 /CUMM) 0 PUBS MCHC (33.0 - 37.0 G/DL) 32.5 L 01/09 0707 Chemistry Sodium (137 - 145 mmol/L) 140 Potassium (3.5 - 5.1 mmol/L) 3.8 Chloride (98 - 107 mmol/L) 96 L Carbon Dioxide (22 - 30 mmol/L) 37 H Anion Gap (5 - 16) 6 BUN (7 - 17 mg/dL) 12 Creatinine (0.5 - 1.0 mg/dL) 0.5 Estimated GFR (>60 ml/min) > 60 BUN/Creatinine Ratio (7 - 25 %) 24.0 Glucose (65 - 99 mg/dL) 295 H Lactic Acid (0.7 - 2.1 mmol/L) 1.0 Calcium (8.4 - 10.2 mg/dL) 9.4 Total Bilirubin (0.2 - 1.3 mg/dL) 0.6 AST (14 - 36 U/L) 28 ALT (9 - 52 U/L) 44 Alkaline Phosphatase (<127 U/L) 109 Total Protein (6.3 - 8.2 g/dL) 6.6 Albumin (3.5 - 5.0 g/dL) 3.8 Globulin (1.9 - 4.2 gm/dL) 2.8 Albumin/Globulin Ratio (1.1 - 2.2 %) 1.4 Amylase (30 - 110 U/L) 33 Lipase (23 - 300 U/L) 15 L Coagulation PT (9.4 - 12.5 SEC) 10.3 INR (0.90 - 1.19) 0.98 APTT (25 - 37 SEC) 32 Hematology CBC w Diff NO MAN DIFF REQ WBC (4.8 - 10.8 /CUMM) 10.6 RBC (4.20 - 5.40 /CUMM) 5.31 Hgb (12.0 - 16.0 G/DL) 14.8 Hct (37 - 47 %) 46.5 MCV (81.0 - 99.0 FL) 87.7 MCH (27.0 - 31.0 PG) 27.9 RDW (11.5 - 14.5 %) 13.0 Plt Count (130 - 400 /CUMM) 259 MPV (7.4 - 10.4 FL) 8.3 Gran % (42.2 - 75.2 %) 75.9 H Lymphocytes % (20.5 - 51.1 %) 15.7 L Monocytes % (1.7 - 9.3 %) 5.8 Eosinophils % (0 - 5 %) 1.9 Basophils % (0.0 - 2.0 %) 0.7 Absolute Granulocytes (1.4 - 6.5 /CUMM) 8.0 H Absolute Lymphocytes (1.2 - 3.4 /CUMM) 1.7 Absolute Monocytes (0.10 - 0.60 /CUMM) 0.6 Absolute Eosinophils (0.0 - 0.7 /CUMM) 0.2 Absolute Basophils (0.0 - 0.2 /CUMM) 0.1 PUBS MCHC (33.0 - 37.0 G/DL) 31.8 L Assessment/Plan Assessment: IP Day #2 for 61yo female with a PMH significant for complicated GI history, multiple abdominal surgeries, COPD on 4L home O2 s/p RUL lobectomy for lung ca, insulin dependent DM, and chronic pain syndrome treated by pain clinic admitted yesterday from ED for intractible vomiting and 8/10 right-sided abdominal pain. Abdominal pain is improved overnight on her home pain regimen. Pt states managing nausea is her main concern today. Nausea is improved from yesterday on Zofran and Tigan PRN. Plan: #1 nausea/vomiting: while inpatient, pt expressed nausea was her chief concern. No episodes of vomiting since admission. Nausea controlled with Zofran and Tigan PRN. -advance diet to regular diet as trial prior to discharge -if tolerates regular diet, d/c home -Rx for Zofran upon discharge #2 abdominal pain: Per pt, abdominal pain well controlled today on home pain regimen. Pt's extensive abdominal surgical history, similar symptoms over the past few years, and abdominal adhesions are suspicious for abdominal pain 2/2 to abdominal adhesions vs. intermittent SBO. Less likely an incarcerated internal hernia based on CT findings and improvement of symptoms today. CT demonstrated "nonspecific prominent ascending and transverse colon with fluid but no air- fluid level, distention, or obstruction." Slow gut motility 2/2 to chronic narcotic use remains a possible etiology of abdominal pain. -recommended surgical consult prior to discharge, pt declined -f/u with GI Dr. Solano outpatient -continue chronic pain management regimen with Pain Clinic # chronic DM: -continue on home regimen for management of DM # chronic COPD: -continue home O2, 4L nasal cannula # chronic COPD: -continue home O2, 4L nasal cannula
--- NOTE | 2017-01-20 17:25 | Discharge Summary ---
Visit Information Visit Dates Admission Date: 01/09/17 Discharge Date: 01/10/17 Hospital Course Course Attending Physician: DAISY WILLIAM M.D Primary Care Physician: SAUNDRA PINTO,[facility] Course: 61-year-old woman current smoker with past medical history significant for on standing diabetes, complicated neuropathy, status -post RUL lobectomy for lung Ca & Chemotherapy,multiple abdominal surgeries PEPE, sigmoid colectomy 03/30/1996 , reversal of colostomy, open CCKY 2008, & 10/22/15: laparoscopic repair of incarcerated incisional hernia, chronic pain syndrome on 3 Fentanyl patches,a Fentanyl pain pump, Diazepam & medical marijuana. Admitted to [facility] for nausea and vomiting. CT abdomen was significant for Diffuse fatty liver without focal lesion, attenuation of pancreas with slight thickening and peripancreatic haziness, no elevation of amylase or lipase. The following day she stated that she was feeling much improved. Reported she recently completed a ketamine taper and her symptoms might have been possible secondary to this. she tolerated regular diet with no issues. 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 She was recommended to follow-up with her primary care physician and GI specialist as outpatient. Complications: none Allergies: Coded Allergies: Sulfa (Sulfonamide Antibiotics) (Intermediate, HIVES 01/09/17) tioconazole (Intermediate, VAGINA SWELLING 01/09/17) metoclopramide (From REGLAN) (Intermediate, ANTSY, RESTLESS LEGS 01/09/17) prochlorperazine (From COMPAZINE) (Intermediate, JITTERY, "JUMP OUT OF MY SKIN" 01/09/17) Significant Procedures: SERVICE DATE: 01/09/17 EXAM TYPE: CAT - CT ABD & PELVIS W IV CONTRAST FINDINGS: LUNG BASES: There is minimal compressive atelectasis or scarring in the left lung base. LIVER, GALLBLADDER, AND BILIARY TREE: The liver is normal in size, shape, and diffusely attenuated. No focal hepatic lesion or biliary ductal dilatation is present. The gallbladder has been surgically removed. The common bile duct is slightly prominent secondary to cholecystectomy. PANCREAS: There is diffuse hypodensity of the pancreas with mild peripancreatic haziness suspicious for pancreatitis. No focal fluid collection or free fluid seen. SPLEEN: Unremarkable. ADRENAL GLANDS: Unremarkable. KIDNEYS AND URETERS: The kidneys are normal in size, shape, and attenuation. No hydronephrosis, hydroureter, or calculi seen. No perinephric stranding. BLADDER: Unremarkable. GASTROINTESTINAL TRACT: There is fluid-filled prominent transverse and ascending colon. ABDOMINAL WALL: No significant hernia is appreciated. LYMPH NODES: Normal. VASCULAR: Unremarkable. PELVIC VISCERA: There is no free air or free fluid. The uterus is nonvisualized and probably atrophied or surgically removed. No adnexal mass seen. There are scattered phleboliths in the pelvis. OSSEOUS STRUCTURES: There are degenerative disc changes with vacuum disc phenomena L2-L3 disc level. IMPRESSION: Diffuse fatty liver without focal lesion. Diffuse attenuation of pancreas with slight thickening and peripancreatic haziness suspicious for pancreatitis. Differential diagnosis includes fatty infiltration. Nonspecific prominent ascending and transverse colon with fluid but no air-fluid level, distention, or obstruction seen. There is no free air or free fluid. Disposition Summary Disposition Principal Diagnosis: chronic pain syndrome Additional Diagnosis: diabetes neuropathy lung Ca Discharge Disposition: home or self care Discharge Instructions General Discharge Information Code Status: Do Not Resucitate/Intubat Patient's Diet: Regular diet Patient's Activity: as tolerated Follow-Up Instructions/Appts: follow up with your primary doctor within one week of discharge follow up with your underbaster within two weeks of discharge follow up with your Pain speciailist as required Medications at Discharge Discharge Medications: Continue taking these medications: Diazepam (Diazepam) 5 MG TABLET 1 Tablet ORAL THREE TIMES DAILY Fentanyl (Fentanyl) 100 MCG/HOUR PATCH.TD72 2 Patch On the skin EVERY 48 HOURS (Every 2 days) Fentanyl (Fentanyl) 75 MCG/HOUR PATCH.TD72 1 Patch On the skin EVERY 48 HOURS (Every 2 days) Lansoprazole (Prevacid) 30 MG CAPSULE.DR 1 Capsule ORAL DAILY Insulin Aspart, Recombinant (Novolog Flexpen) (Unknown Strength) INSULN.PEN Unknown Dose SEE SLIDING SCALE as needed for DM Ondansetron (Ondansetron Odt) 8 MG TAB.RAPDIS 1 Tablet ORAL EVERY SIX HOURS as needed for NAUSEA/VOMITING Ergocalciferol (Vitamin D2) (Vitamin D2) 50,000 UNIT CAPSULE 1 Capsule ORAL EVERY TUESDAY Simvastatin (Zocor*) 10 MG TABLET 1 Tablet ORAL Every night Ipratropium/Albuterol Sulfate (Iprat-Albut 0.5-3(2.5) MG/3 Ml) 0.5 MG-3 MG (2.5 MG BASE)/3 ML AMPUL.NEB 1 VIAL Inhale Solution TWICE DAILY as needed for COPD Furosemide (Lasix) 40 MG TABLET 1 Tablet ORAL DAILY as needed for DIURETIC Comments: PER PT Halobetasol Propionate (Halobetasol Propionate) 15 GM CREAM..G. 1 Application On the skin TWICE DAILY Days = 20 Comments: PER PT Insulin Glargine,Hum.rec.anlog (Toujeo Solostar) 300 UNIT/ML (1.5 ML) INSULN.PEN 60 Units SUB-Q TWICE DAILY Start taking the following new medications: Vitamin E (Dl,Tocopheryl Acet) (Vitamin E) 400 UNIT CAPSULE 800 International Unit ORAL DAILY Days = 30 No Refills Copies To: SAUNDRA PINTO,SARITA Healy MD Review Statement Documenting Attending: DAISY WILLIAM M.D
== END 2017-01-10 14:24 | DRG 392 ==
LOC: ENRESERVTM → ENRESERVDT → ERH 06:28 → ERHI 09:15 → 2NB 09:15
PROVIDERS: Emergency Medicine; Student in an Organized Health Care Education/Training Program; ADMIT Student in an Organized Health Care Education/Training Program
DX: R11.2 Nausea with vomiting, unspecified (principal); J96.11 Chronic respiratory failure with hypoxia; Z99.81 Dependence on supplemental oxygen; K50.90 Crohn's disease, unspecified, without complications; F17.210 Nicotine dependence, cigarettes, uncomplicated; J44.9 Chronic obstructive pulmonary disease, unspecified; Z85.118 Personal history of other malignant neoplasm of bronchus and lung; E11.9 Type 2 diabetes mellitus without complications; Z79.4 Long term (current) use of insulin; Z85.038 Personal history of other malignant neoplasm of large intestine; F17.200 Nicotine dependence, unspecified, uncomplicated; F12.90 Cannabis use, unspecified, uncomplicated
CPT/HCPCS: 2NBSP; 74177; 82436; 96374; J1644; J1815; J2405; J3250; J7042

== ENCOUNTER 2017-01-24 16:45 | Observation (INO) | payer OTHER, MEDICARE ==
[~2017-01-24] VITALS: Ht 160 cm; Wt 68.0 kg
[~2017-01-24 16:45] MED LIST changes: +VITAMIN E400 UNI1 PO
--- NOTE | 2017-01-24 16:49 | NUR ---
PT C/O VOMITING ON AND OFF SINCE . PT DID NOT F/UP WITH GI STATES HER HAS CA OF THE LUNG AND SHE HAS NOT HAD TIME TO F/UP WRITTEN BY [facility]ANKS IN TRIAGE.
--- NOTE | 2017-01-24 19:05 | ED GI/GU/ABDOMINAL COMPLAINT ---
History of Present Illness General Chief Complaint: Nausea, Vomiting, Diarrhea Stated Complaint: VOMITING Source: patient, old records Exam Limitations: no limitations Allergies Coded Allergies: Sulfa (Sulfonamide Antibiotics) (Intermediate, HIVES 01/09/17) tioconazole (Intermediate, VAGINA SWELLING 01/09/17) promethazine (From PHENERGAN) (LEGS STARTED JUMPING PER PT 01/24/17) metoclopramide (From REGLAN) (Intermediate, ANTSY, RESTLESS LEGS 01/09/17) prochlorperazine (From COMPAZINE) (Intermediate, JITTERY, "JUMP OUT OF MY SKIN" 01/09/17) Reconcile Medications Diazepam 5 MG TABLET 1 TAB PO TID ANXIETY (Reported) Ergocalciferol (Vitamin D2) (Vitamin D2) 50,000 UNIT CAPSULE 1 CAP PO QMON SUPPLEMENT (Reported) Fentanyl 100 MCG/HOUR PATCH.TD72 2 PAT TOP Q48 PAIN (Reported) Fentanyl 75 MCG/HOUR PATCH.TD72 1 PAT TOP Q48 PAIN (Reported) Furosemide (Lasix) 40 MG TABLET 1 TAB PO DAILY PRN DIURETIC (Reported) Halobetasol Propionate 15 GM CREAM..G. 1 BERE TOP BID BOTH HANDS ECZEMA ( Reported) Insulin Aspart, Recombinant (Novolog Flexpen) (Unknown Strength) INSULN.PEN ( Unknown Dose) SEE SLIDING SCALE PRN DM (Reported) Insulin Glargine,Hum.rec.anlog (Toujeo Solostar) 300 UNIT/ML (1.5 ML) INSULN.PEN 70 UNITS SQ BID DIABETES (Reported) Ipratropium/Albuterol Sulfate (Iprat-Albut 0.5-3(2.5) MG/3 Ml) 0.5 MG-3 MG (2.5 MG BASE)/3 ML AMPUL.NEB 1 VIAL INH/SCOTT BID PRN COPD (Reported) Lansoprazole (Prevacid) 30 MG CAPSULE.DR 1 CAP PO DAILY ACID REFLUX (Reported ) Ondansetron (Ondansetron Odt) 8 MG TAB.RAPDIS 1 TAB PO Q6 PRN NAUSEA/VOMITING (Reported) Simvastatin (Zocor*) 10 MG TABLET 1 TAB PO QPM CHOLESTEROL (Reported) Triage Note: PT C/O VOMITING ON AND OFF SINCE [place]. PT DID NOT F/UP WITH GI STATES HER HAS CA OF THE LUNG AND SHE HAS NOT HAD TIME TO F/UP Triage Nurses Notes Reviewed? yes ? n Is pt currently ? No HPI: Patient is a 61-year-old female presents complaining of a book, pain, nausea, vomiting, diarrhea. Vomiting daily for the past 2 weeks. Diarrhea onset yesterday. Greater than 10 episodes of mucousy diarrhea since onset. Right- sided cramping abdominal pain. Patient was admitted to the hospital just prior to [facility] for similar symptoms. Patient reports that she felt better after one day in the hospital was discharged home. Patient has not been able to follow-up with gastroenterology due to her having cancer and having to take care of him. Patient had her pain pump interrogated due to thinking that her symptoms were from withdrawal. Her pain pump was interrogated on January 13 and shown to be functioning properly. Positive associated chills. Patient denies fevers, hematemesis, hematochezia. (ALFIE VASQUEZ,RUDY) Vital Signs & Intake/Output Vital Signs & Intake/Output Vital Signs Date Time Temp Pulse Resp B/P B/P Pulse O2 O2 Flow FiO2 Mean Ox Delivery Rate 01/25 0550 97.2 68 20 150/68 92 Room Air 01/25 0127 95.2 71 20 114/63 97 Nasal 4.0L Cannula 01/24 2210 97.2 92 16 124/78 92 Room Air 01/24 2000 94 Nasal 4.0L Cannula ED Intake and Output 01/25 0000 01/24 1200 Intake Total 1000 Output Total Balance 1000 Intake, IV 1000 Patient 150 lb Weight Weight Reported by Patient Measurement Method Past History Travel History Traveled to [place] past 21 day No Medical History Any Pertinent Medical History? see below for history Neurological: peripheral neuropathy EENT: NONE Cardiovascular: hyperlipidemia Respiratory: COPD (HOME 02 DEPENDENT 4-5L), Hx RUL lung Ca- resected & CTX (? when, ? 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 details History of MRSA: No History of VRE: No History of CDIFF: No Influenza Vaccine: 07/11/16 Surgical History Surgical History: appendectomy, cholecystectomy, colon resection (03/1996- sigmoid diverticuliti), hernia repair-incisional, hysterectomy, Lobectomy RUL- lung Ca f/b CTX colostomy reversal 2008: ? R hemicolectomy Psychosocial History Who do you live with [facility] What is your primary language Turkish Tobacco Use: Current Daily Use Daily Tobacco Use Amount/Type: => 5 Cigarettes daily ETOH Use: denies use Illicit Drug Use: marijuana Family History Family History, If Any: MOTHER (PUD/diverticulitis). , Age 80; Cause: Unknown cause of morbidity or mortality. FHx: heart disease FATHER (urinary bladder Ca, PVD, PUD). , Age 80; Cause: Myocardial infarction. Bladder cancer FH: lung cancer FHx: heart disease Relation not specified for: Breast cancer in sister Liver cancer Hx Contributory? No (RUDY ABRAMS) Review of Systems Review of Systems Constitutional: Reports: chills, malaise, weakness. Denies: fever. EENTM: Reports: no symptoms. Respiratory: Denies: cough, short of breath. Cardiovascular: Denies: chest pain. GI: Reports: see HPI. Genitourinary: Reports: no symptoms. Musculoskeletal: Reports: no symptoms. Skin: Reports: no symptoms. Neurological/Psychological: Reports: no symptoms. Hematologic/Endocrine: Reports: no symptoms. Immunologic/Allergic: Reports: no symptoms. (RUDY ABRAMS) Physical Exam Physical Exam General Appearance: alert, awake Head: atraumatic, normal appearance Eyes: Bilateral: normal appearance, PERRL, EOMI. Ears, Nose, Throat, Mouth: hearing grossly normal, moist mucous membrane Neck: normal inspection, supple, full range of motion Respiratory: normal breath sounds, chest non-tender, no respiratory distress, lungs clear Cardiovascular: regular rate/rhythm Gastrointestinal: normal bowel sounds, soft, right upper and lower quadrant tenderness Back: normal inspection, normal range of motion Extremities: normal range of motion Neurologic/Psych: no motor/sensory deficits, awake, alert, oriented x 3, normal mood/affect Skin: intact, normal color, warm/dry Core Measures ACS in differential dx? Yes ASA ordered for poss ACS? No-ACS ruled out Severe Sepsis Present: No Septic Shock Present: No (RUDY ABRAMS) Progress Differential Diagnosis: AMI, appendicitis, bowel obstruction, diverticulitis, gastritis, hepatitis, hernia, ischemic bowel, inflamm bowel dis, kidney stone, pancreatitis, peptic ulcer, PUD/GERD, perforated viscous, SBO, UTI/pyelo, gastroparesis, chronic pain, medication withdrawal Diagnostic Imaging: Viewed by Me: CT Scan. Discussed w/RAD: CT Scan. Radiology Impression: PATIENT: EMANUEL BOWEN PRESENT AGE: 61 PATIENT ACCOUNT NO: [id number] : 56 LOCATION: [facility] ORDERING PHYSICIAN: RUDY VASQUEZ SERVICE DATE: 01/24/17 EXAM TYPE: CAT - CT ABD & PELVIS W IV CONTRAST EXAMINATION: CT ABDOMEN AND PELVIS WITH CONTRAST CLINICAL INFORMATION: Right-sided abdominal pain. Nausea. Chills. Diarrhea. History of Crohn's disease. COMPARISON: Multiple prior studies. Most recent exam CT scan abdomen pelvis 01/09/2017 TECHNIQUE: Multidetector volumetric imaging was performed of the abdomen and pelvis after the IV administration of 95 mL of Optiray 320 intravenous contrast. Sagittal and coronal reformatted images were obtained on the technologist's workstation. DLP: 379.55 mGy-cm FINDINGS: LUNG BASES: The visualized lung bases are unremarkable. LIVER, GALLBLADDER, AND BILIARY TREE: Low-attenuation of liver parenchyma due to fatty change. No focal liver lesion. No intrahepatic bile duct dilatation. Status post cholecystectomy. The extra hepatic CBD at the kiet hepatis measures 1.1 cm in diameter and tapers to the ampulla without calcified stone within the bile duct. Right lobe liver measures 19 cm superior inferior. PANCREAS: Pancreas is atrophic with diffuse low-attenuation. This is chronic unchanged since prior studies. SPLEEN: Unremarkable. ADRENAL GLANDS: Unremarkable. KIDNEYS AND URETERS: The kidneys are normal in size, shape, and attenuation. No hydronephrosis, hydroureter, or calculi seen. No perinephric stranding. BLADDER: Unremarkable. GASTROINTESTINAL TRACT: Surgical anastomosis of the colon at the hepatic flexure no acute change of bowel. No bowel obstruction. No bowel wall thickening or edema. Moderate volume of stool in colon. The appendix is not seen. No inflammation the mesentery. Small bowel loops are normal. ABDOMINAL WALL: No significant hernia is appreciated. LYMPH NODES: Normal. VASCULAR: Atherosclerotic vascular wall calcifications of aorta. PELVIC VISCERA: Uterus is absent. No adnexal abnormality. OSSEOUS STRUCTURES: Neural stimulator probe passing up to the thoracic spinal canal. The generator is in the left flank. Mild multilevel degenerative spondylosis of the spine. IMPRESSION: No acute abnormality CT scan abdomen pelvis. DICTATED BY: EMILIA CORTES MD DATE/TIME DICTATED:01/24/172329 FOOD PREPARER:DOMINGA DATE/TIME TRANSCRIBED:01/24/172329 CONFIDENTIAL, DO NOT COPY WITHOUT APPROPRIATE AUTHORIZATION. <Electronically signed in Other Vendor System> SIGNED BY: EMILIA CORTES MD 01/24/17 2345 Initial ED EKG: sinus rhythm 66 bpm, normal axis, normal intervals. diffuse less than 1mm st elevation that is changed from previous ekg. Prior EKG: changed (RUDY ABRAMS) Plan of Care: Orders Procedure Date/time Status Nothing by Mouth 01/25 B Active TROPONIN LEVEL 01/25 0640 Complete EKG 01/25 06 Active CBC WITHOUT DIFFERENTIAL 01/25 06 Complete BASIC ELECTROLYTES PLUS BUN&CR 01/25 06 Complete TRC EVALUATION (GEN) 01/25 025 Active OXYGEN SETUP (GEN) 01/25 0255 Active Saline Lock 01/25 0255 Active Pathway - chart 01/25 0255 Active House Staff 01/25 0255 Active Patient Data 01/25 0225 Active Patient Data 01/25 0217 Active Saline Lock 01/25 0058 Active Misc Message 01/25 0058 Active ED Holding Orders 01/25 0058 Active Vital Signs 01/25 0058 Active Code Status 01/[address] in observation 01/25 0057 Active House Staff 01/25 UNK Active VTE Mechanical Prophylaxis 01/25 UNK Active MISTAKE 01/25 UNK Active Activity/Ambulation 01/25 UNK Active Intake & Output 01/25 2052 Active FingerStick- Glucose 01/24 2043 Active Add-on Test (ER Only) 01/25 2008 Active TROPONIN LEVEL 01/24 1954 Complete WESTERGREN SED RATE 01/24 1954 Complete MIXED VENOUS BLOOD GAS (GEN) 01/25 1904 Active LIPASE 01/25 1904 Complete LACTIC ACID 01/25 1904 Complete COMPREHENSIVE METABOLIC PANEL 01/25 1904 Complete CBC WITHOUT DIFFERENTIAL 01/25 1904 Complete AMYLASE 01/25 1904 Complete ACETONE 01/25 1904 Complete EKG 01/25 1904 Active Laboratory Tests 01/25/17 0640: Anion Gap 9, Estimated GFR > 60, BUN/Creatinine Ratio 6.7 L, Troponin I < 0.01, CBC w Diff NO MAN DIFF REQ, RBC 5.08, MCV 87.8, MCH 27.9, RDW 13.2, MPV 7.5, Gran % 78.0 H, Lymphocytes % 14.6 L, Monocytes % 4.8, Eosinophils % 1.7, Basophils % 0.9, Absolute Granulocytes 10.3 H, Absolute Lymphocytes 1.9, Absolute Monocytes 0.6, Absolute Eosinophils 0.2, Absolute Basophils 0.1, PUBS MCHC 31.7 L 01/25/17 0612: Troponin I Cancelled 01/24/172203: Lactic Acid Cancelled 01/24/171953: Anion Gap 10, Estimated GFR > 60, BUN/Creatinine Ratio 10.0, Glucose 279 H, Lactic Acid 1.3, Calcium 8.6, Total Bilirubin 0.4, AST 15, ALT 32, Alkaline Phosphatase 104, Troponin I < 0.01, Total Protein 6.2 L, Albumin 3.7, Globulin 2.5, Albumin/Globulin Ratio 1.5, Amylase < 30 L, Lipase 17 L, CBC w Diff NO MAN DIFF REQ, RBC 4.89, MCV 87.7, MCH 27.9, RDW 12.9, MPV 7.7, Gran % 84.0 H, Lymphocytes % 11.3 L, Monocytes % 3.6, Eosinophils % 0.9, Basophils % 0.2, Absolute Granulocytes 12.1 H, Absolute Lymphocytes 1.6, Absolute Monocytes 0.5, Absolute Eosinophils 0.1, Absolute Basophils 0, PUBS MCHC 31.8 L, ESR Westergren 13, Acetone Level NEGATIVE Microbiology 01/24 1907 STOOL: Clostridium difficile Toxin A & B - CAN Cancelled: SPECIMEN NOT RECEIVED IN LABORATORY 01/24 1907 STOOL: Stool Culture - CAN Cancelled: SPECIMEN NOT RECEIVED IN LABORATORY Patient reevaluated multiple times. Temporary improvement after Zofran and Valium then symptoms return. No episodes of diarrhea or vomiting in the emergency department. Patient declining to attempt to take any fluids by mouth. Requesting admission. Discussed with Dr. Sullivan. Discussed with [facility]. Maldonado ([facility] Departure Departure Disposition: STILL A PATIENT Condition: Stable Clinical Impression Primary Impression: Intractable nausea and vomiting Secondary Impressions: Hyperglycemia, Intractable abdominal pain, Leukocytosis Referrals: SARITA ARGUELLO MD (PCP/Family) Departure Forms: Customer Survey General Discharge Information Observation Note Spoke With: SARIKA MALDONADO MD Patient In: Non-ED OBS Care Area Rationale for Observation: My rational for observation is as follows: iv anti-emetics, IV fluids, GI consultation. Patient not able to tolerate oral intake with history of diabetes. (ALFIE VASQUEZ,RUDY) PA/PLUMBER SUPERVISOR Co-Sign Statement Statement: ED Attending supervision documentation- [x] I saw and evaluated the patient. I have also reviewed all the pertinent lab results and diagnostic results. I agree with the findings and the plan of care as documented in the PA's/PLUMBER SUPERVISOR's documentation. [] I have reviewed the ED Record and agree with the PA's/PLUMBER SUPERVISOR's documentation. [] Additions or exceptions (if any) to the PAs/PLUMBER SUPERVISOR's note and plan are summarized below: [] (ELMO PINTO,GRACE Johnson)
--- NOTE | 2017-01-24 19:42 | NUR ---
PT EVALUATED BY PEDRO JUDGE.
--- NOTE | 2017-01-24 19:57 | NUR ---
BLOOD DRAWN AND SENT TO LAB-[facility],2SST,LAV. IV EST. PT MEDICATED WITH VALIUM AND ZOFRAN PER EMAR FOR NAUSEA AND ANXIETY. NS INFUSING PER EMAR.
[2017-01-24 20:06] LABS: ABSOLUTE BASOPHIL COUNT 0 /CUMM (0.0-0.2); ABSOLUTE EOSINOPHIL COUNT 0.1 /CUMM (0.0-0.7); ABSOLUTE GRANULOCYTE CT 12.1 /CUMM (1.4-6.5); ABSOLUTE LYMPH COUNT 1.6 /CUMM (1.2-3.4); ABSOLUTE MONOCYTE COUNT 0.5 /CUMM (0.10-0.60); BASOPHIL % 0.2 % (0.0-2.0); EOSINOPHIL % 0.9 % (0-5); HEMATOCRIT 42.9 % (37-47); MEAN CORPUSCULAR HGB 27.9 PG (27.0-31.0); MEAN CORPUSCULAR HGB CONC 31.8 G/DL (33.0-37.0); MEAN CORPUSCULAR VOLUME 87.7 FL (81.0-99.0); MEAN PLATELET VOLUME 7.7 FL (7.4-10.4); PLATELET COUNT 311 /CUMM (130-400); RBC DISTRIBUTION WIDTH 12.9 % (11.5-14.5); RED BLOOD CELL CT 4.89 /CUMM (4.20-5.40); WHITE BLOOD CELL COUNT 14.4 /CUMM (4.8-10.8)
--- NOTE | 2017-01-24 23:01 | NUR ---
PT REEVALUATED BY PEDRO JUDGE AND MEDICATED WITH ZOFRAN PER EMAR FOR NAUSEA. 2ND NS INFUSING PER EMAR. BG 192 AT THIS TIME, PEDRO JUDGE MADE AWARE. AWAITING CAT SCAN.
--- NOTE | 2017-01-24 23:06 | NUR ---
PT TO CAT SCAN BY STRETCHER.
--- NOTE | 2017-01-24 23:45 | CT SCAN REPORT ---
EXAMINATION: CT ABDOMEN AND PELVIS WITH CONTRAST CLINICAL INFORMATION: Right-sided abdominal pain. Nausea. Chills. Diarrhea. History of Crohn's disease. COMPARISON: Multiple prior studies. Most recent exam CT scan abdomen pelvis 01/09/2017 TECHNIQUE: Multidetector volumetric imaging was performed of the abdomen and pelvis after the IV administration of 95 mL of Optiray 320 intravenous contrast. Sagittal and coronal reformatted images were obtained on the technologist's workstation. DLP: 379.55 mGy-cm FINDINGS: LUNG BASES: The visualized lung bases are unremarkable. LIVER, GALLBLADDER, AND BILIARY TREE: Low-attenuation of liver parenchyma due to fatty change. No focal liver lesion. No intrahepatic bile duct dilatation. Status post cholecystectomy. The extra hepatic CBD at the kiet hepatis measures 1.1 cm in diameter and tapers to the ampulla without calcified stone within the bile duct. Right lobe liver measures 19 cm superior inferior. PANCREAS: Pancreas is atrophic with diffuse low-attenuation. This is chronic unchanged since prior studies. SPLEEN: Unremarkable. ADRENAL GLANDS: Unremarkable. KIDNEYS AND URETERS: The kidneys are normal in size, shape, and attenuation. No hydronephrosis, hydroureter, or calculi seen. No perinephric stranding. BLADDER: Unremarkable. GASTROINTESTINAL TRACT: Surgical anastomosis of the colon at the hepatic flexure no acute change of bowel. No bowel obstruction. No bowel wall thickening or edema. Moderate volume of stool in colon. The appendix is not seen. No inflammation the mesentery. Small bowel loops are normal. ABDOMINAL WALL: No significant hernia is appreciated. LYMPH NODES: Normal. VASCULAR: Atherosclerotic vascular wall calcifications of aorta. PELVIC VISCERA: Uterus is absent. No adnexal abnormality. OSSEOUS STRUCTURES: Neural stimulator probe passing up to the thoracic spinal canal. The generator is in the left flank. Mild multilevel degenerative spondylosis of the spine. IMPRESSION: No acute abnormality CT scan abdomen pelvis.
--- NOTE | 2017-01-25 01:29 | NUR ---
PT REQUESTED MORE VALIUM. MEDICATED WITH 2.5 MG VALIUM IV PER PEDRO Thorpe
--- NOTE | 2017-01-25 02:50 | History & Physical ---
[facility] 01/25/17 0248: General Information and HPI MD Statement: I have seen and personally examined EMANUEL BOWEN and documented this H&P. The patient is a 61 year old F who presented with a patient stated chief complaint of [vomiting and diarrhea]. Source of Information: patient, old records Exam Limitations: no limitations History of Present Illness: is a 61 yo women current smoker with PMHx. of diabetes, COPD on 4-5L home O2, Chron's disease s/p right hemicolectomy in 2007, HLD, colonic carcinoid , complicated neuropathy, status -post RUL lobectomy for lung Ca & Chemotherapy, multiple abdominal surgeries, PEPE, laparoscopic repair of incarcerated incisional hernia, chronic pain syndrome on 3 Fentanyl patches,a Fentanyl pain pump, Diazepam & medical marijuana presented to ED with a c/o of nausea, vomiting abdominal pain and diarrhea. Patient recently discharged from [facility] at 01/10/17, she was admitted for the same complaint she stayed at the hospital for one day and was asked at discharge to f/u with her GI doctor, after her discharge she was seen by her pain management doctor (), who checked her Fentanyl pump which is working fine. She didn't get the chance to F/U with GI. She report that since her last admission she had persistant nausea and vomiting, she vomits every single day, she tries to hydrate hersself but nothing stays in her abdomen, no bloody vomiting, associated with abdominal pain that is waxes and wanes, colicky in nature, mainly in the RUQ, when she lay in the back she can feels a lump on the right side below her rib cage. Yesterday she started to have diarrhea through the day, multiple times, she couldn't count, she states that she had to push when she goes to the bathroom afterward she will have the watery bowel movement, brown in color with mucous at the end, she never feels releived, she noticed abdominal distension. Review of system is positive for chills over the last 2 months. She denies cp, sob, dizziness, no leg swelling, no cough and there is no change in bowel habits She is on fentanyl patches, fentanyl pump, medical marijuana. Allergies/Medications Allergies: Coded Allergies: Sulfa (Sulfonamide Antibiotics) (Intermediate, HIVES 04/16/17) tioconazole (Intermediate, VAGINA SWELLING 01/09/17) promethazine (From PHENERGAN) (LEGS STARTED JUMPING PER PT 01/24/17) metoclopramide (From REGLAN) (Intermediate, ANTSY, RESTLESS LEGS 01/09/17) prochlorperazine (From COMPAZINE) (Intermediate, JITTERY, "JUMP OUT OF MY SKIN" 01/09/17) Home Med list Diazepam 5 MG TABLET 1 TAB PO TID ANXIETY (Reported) Ergocalciferol (Vitamin D2) (Vitamin D2) 50,000 UNIT CAPSULE 1 CAP PO QMON SUPPLEMENT (Reported) Fentanyl 100 MCG/HOUR PATCH.TD72 2 PAT TOP Q48 PAIN (Reported) Fentanyl 75 MCG/HOUR PATCH.TD72 1 PAT TOP Q48 PAIN (Reported) Furosemide (Lasix) 40 MG TABLET 1 TAB PO DAILY PRN DIURETIC (Reported) Halobetasol Propionate 15 GM CREAM..G. 1 BERE TOP BID BOTH HANDS ECZEMA ( Reported) Insulin Aspart, Recombinant (Novolog Flexpen) (Unknown Strength) INSULN.PEN ( Unknown Dose) SEE SLIDING SCALE PRN DM (Reported) Insulin Glargine,Hum.rec.anlog (Toujeo Solostar) 300 UNIT/ML (1.5 ML) INSULN.PEN 70 UNITS SQ BID DIABETES (Reported) Ipratropium/Albuterol Sulfate (Iprat-Albut 0.5-3(2.5) MG/3 Ml) 0.5 MG-3 MG (2.5 MG BASE)/3 ML AMPUL.NEB 1 VIAL INH/SCOTT BID PRN COPD (Reported) Lansoprazole (Prevacid) 30 MG CAPSULE.DR 1 CAP PO DAILY ACID REFLUX (Reported ) Ondansetron (Ondansetron Odt) 8 MG TAB.RAPDIS 1 TAB PO Q6 PRN NAUSEA/VOMITING (Reported) Simvastatin (Zocor*) 10 MG TABLET 1 TAB PO QPM CHOLESTEROL (Reported) Past History Travel History Traveled to [place] past 21 day No Medical History Neurological: peripheral neuropathy EENT: NONE Cardiovascular: hyperlipidemia Respiratory: COPD (HOME 02 DEPENDENT 4-5L), Hx RUL lung Ca- resected & CTX (? when, ? cell type) Gastrointestinal: Crohn's disease (NOT definite), diverticulitis Hepatic: NONE Renal: NONE Musculoskeletal: chronic back pain, degen joint disease, osteoarthritis Psychiatric: anxiety, opioid dependence Endocrine: diabetes (neuropathy), vitamin D deficiency Blood Disorders: NONE Cancer(s): lung cancer (WITH RUL RESECTION AND CHEMO) CARDIAC EXERCISE PHYSIOLOGIST/Reproductive: PEPE- ? details History of MRSA: No History of VRE: No History of CDIFF: No Influenza Vaccine: 07/11/16 Surgical History Surgical History: appendectomy, cholecystectomy, colon resection (03/1996- sigmoid diverticuliti), hernia repair-incisional, hysterectomy, Lobectomy RUL- lung Ca f/b CTX colostomy reversal 2008: ? R hemicolectomy Past Family/Social History Family History Relations & Conditions if any MOTHER (PUD/diverticulitis). , Age 80; Cause: Unknown cause of morbidity or mortality. FHx: heart disease FATHER (urinary bladder Ca, PVD, PUD). , Age 80; Cause: Myocardial infarction. Bladder cancer FH: lung cancer FHx: heart disease Relation not specified for: Breast cancer in sister Liver cancer Psychosocial History Who Do You Live With? spouse Services at Home: Oxygen Primary Language: Argentine ETOH Use: denies use Illicit Drug Use: marijuana Living Will? yes Power of Assistant Director/HCP? no Functional Ability ADLs Independent: dressing, eating, toileting, bathing. Ambulation: independent IADLs Independent: shopping, housework, finances, food prep, telephone, transportation , medication admin. Review of Systems Review of Systems Constitutional: Reports: chills. EENTM: Reports: no symptoms. Cardiovascular: Reports: no symptoms. Respiratory: Reports: no symptoms. GI: Reports: abdominal pain, diarrhea, distention, nausea, vomiting. Genitourinary: Reports: no symptoms. Musculoskeletal: Reports: no symptoms. Skin: Reports: no symptoms. Neurological/Psychological: Reports: no symptoms. All Other Systems: Reviewed and Negative Exam & Diagnostic Data Last 24 Hrs of Vital Signs/I&O Vital Signs Date Time Temp Pulse Resp B/P B/P Pulse O2 O2 Flow FiO2 Mean Ox Delivery Rate 01/25 0127 95.2 71 20 114/63 97 Nasal 4.0L Cannula 01/24 2210 97.2 92 16 124/78 92 Room Air 01/25 2000 94 Nasal 4.0L Cannula 01/24 1651 97.6 79 16 145/79 90 Intake & Output 01/25 0800 01/25 0000 01/24 1600 Intake Total 1000 Output Total Balance 1000 Intake, IV 1000 Patient 150 lb Weight Weight Reported by Patient Measurement Method Physical Exam General Appearance Alert, Oriented X3, Cooperative, Moderate Distress Skin No Rashes, No Breakdown, No Significant Lesion Skin Temp/Moisture Exam: Warm/Dry HEENT PERRLA, EOMI, dry mucous membrane Neck Supple, No JVD Lymphatic Axillary nl, Cervical nl Cardiovascular Normal S1, Normal S2 Lungs Clear to Auscultation, Normal Air Movement Abdomen Normal Bowel Sounds, Soft, Tenderness over RUQ with rebound Extremities No Edema, Normal Pulses Last 24 Hrs of Labs/Tavon: Laboratory Tests 01/24/172203: Lactic Acid Cancelled 01/24/171953: Anion Gap 10, Estimated GFR > 60, BUN/Creatinine Ratio 10.0, Glucose 279 H, Lactic Acid 1.3, Calcium 8.6, Total Bilirubin 0.4, AST 15, ALT 32, Alkaline Phosphatase 104, Troponin I < 0.01, Total Protein 6.2 L, Albumin 3.7, Globulin 2.5, Albumin/Globulin Ratio 1.5, Amylase < 30 L, Lipase 17 L, CBC w Diff NO MAN DIFF REQ, RBC 4.89, MCV 87.7, MCH 27.9, RDW 12.9, MPV 7.7, Gran % 84.0 H, Lymphocytes % 11.3 L, Monocytes % 3.6, Eosinophils % 0.9, Basophils % 0.2, Absolute Granulocytes 12.1 H, Absolute Lymphocytes 1.6, Absolute Monocytes 0.5, Absolute Eosinophils 0.1, Absolute Basophils 0, PUBS MCHC 31.8 L, ESR Westergren 13, Acetone Level NEGATIVE Microbiology 01/24 1907 STOOL: Clostridium difficile Toxin A & B - ORD 01/24 1907 STOOL: Stool Culture - ORD Diagnostic Data EKG Results SR, 66 BPM, DIFFUSE ST ELEVATION Other Results CT Abdomen/ pelvis: Unremarkable Assessment/Plan Assessment: is a 61 yo women current smoker with PMHx. of diabetes, COPD on 4-5L home O2, Chron's disease s/p right hemicolectomy in 2007, HLD, colonic carcinoid , complicated neuropathy, status -post RUL lobectomy for lung Ca & Chemotherapy, multiple abdominal surgeries, PEPE, laparoscopic repair of incarcerated incisional hernia, chronic pain syndrome on 3 Fentanyl patches,a Fentanyl pain pump, Diazepam & medical marijuana presented to ED with a c/o of nausea, vomiting abdominal pain and diarrhea admitted to N/V and possible pericarditis. her problems list includes: #N/V/D which could be related to Crohn's disease exacerbation VS #?Pericarditis #Hx of chronic pain #Hx. of COPD on 4-5L NC #Anxiety Plan: * Nothing by mouth * Willl the patient under observation in telemetry * Will check repeated EKG, Troponin at 6am, if EKG shows worsening diffuse ST- elevation, place cardiology consult * Will start IV hydration with normal saline 75 mL per hour * Zofran 4 mg IV every 8 * Will hold on prednisone for now for possible Crhon's exacerbation until C.diff ruled out * Will send stool C.diff * GI consult at am with Dr. Solano for crhon's eacerbation. * Nothing by mouth * Novolin insulin for nothing by mouth patient's * Fingersticks every 6 * Patient is on fentanyl pump * Continue fentanyl patch 275 MCG every 48h * Diazepam 5 mg IV 3 times a day * TRC/ DueNeb Q4 PRN * O2 supplementation nasal cannula 4 lit O2 Pain pathway-fentanyl pump and fentanyl patch DVT prophylaxis-heparin 5000 units every 8 DNR/DNI As Ranked By This Provider Problem List: 1. Chronic abdominal pain 2. Crohn's disease 3. Diarrhea 4. Dehydration 5. Nausea & vomiting Core Measures/Miscellaneous Acute Coronary Syndrome ACS Diagnosis: No Cerebrovascular Accident CVA/TIA Diagnosis: No Congestive Heart Failure CHF Diagnosis: No Venous Thromboembolism VTE Risk Factors: Acute medical illness, Age > 40 No [facility] VTE prophylaxis d/t: No contraindications No VTE Pharm Prophylaxis d/t: No contraindications VTE Diagnosis: No VTE Type: NONE VTE Confirmed by (Test): NONE Severe Sepsis Severe Sepsis Present: No Septic Shock Septic Shock Present: No Miscellaneous Documentation Attending Case Discussed With: SARIKA ALVAREZ MD Primary Care Physician: SAUNDRA PINOT,[facility] Patient sees these Specialists GI: Level of Patient Care: Telemetry SARIKA ALVAREZ 01/25/17 0627: Attending Review Statement Attending Statement Attending MD Statement: examined this patient, discuss w/resident/PA/COUNTY DIRECTOR, agreed w/resident/PA/COUNTY DIRECTOR, reviewed EMR data (avail), reviewed images, amended to note Attending Assessment/Plan: Cc: Nausea vomiting diarrhea PMH: Crohn's disease S/P right hemicolectomy , COPD on 4 L O2, chronic smoker, chronic abdominal pain, on ?pain pump/?neural Stimulator and fentanyl patch and medical marijuana, lung cancer S/P right upper lobectomy, chemotherapy, laparoscopic repair of incarcerated incisional hernia, DM She was recently admitted in hospital and was discharged on January 10 for similar complaints. Patient's nausea and vomiting was considered secondary to ketamine withdrawal, patient insisted on discharge at that time. She came back again for persistent vomiting at home. Patient was getting vomiting every day along with nausea. Yesterday she had multiple watery bowel movements associated with colicky abdominal pain relieved with bowel movement. She also complains of right upper quadrant abdominal pain. Vitals: Afebrile, pulse, RRR, blood pressure in acceptable range, saturating well on 4 L. On exam: Arousable O 3, , dosing off while sitting, cooperative, no acute distress, neck supple, JVD normal, no lymphadenopathy, mucosa moist, no focal neurological deficit, no dependent edema, no obvious skin rashes or inflammation CVS: S1-S2, RRR. RS: Clear to auscultate bilaterally. Abdomen: Soft, right upper quadrant tenderness, fentanyl patch present, pain pump palpated ND, bowel sounds present. Labs: WBC 14.4, neutrophil 84%, sodium 135, chloride 95, bicarbonate 30, BUN 5 creatinine 0.5, glucose 279, lactate 1.3 LFT unremarkable, troponin less than 0.01, lipase 17, acetone negative CT abdomen and pelvis: No acute abnormality CT scan abdomen pelvis. EKG: Diffuse ST elevation in lateral leads and inferior leads A and P Patient had multiple hospitalizations for nausea, recurrent vomiting, abdominal pain probably related to her abdominal surgery, ?Adhesions, ?Gastroparesis ? Crohn's disease. Patient tender to palpate on right upper quadrant. LFT normal, CT scan unremarkable. # Intractable nausea vomiting # Diarrhea # Diffuse ST elevation r/o pericarditis # History of Crohn's disease S/P right hemicolectomy, COPD, chronic abdominal pain, DM - Place in observation in telemetry for diffuse ST elevations - Repeat troponin and EKG - Telemetry monitoring - Gentle IV hydration - Check C. difficile - Right upper quadrant ultrasound to rule out any CBD dilatation - Nothing by mouth - When necessary Zofran - Sliding scale insulin for diabetes - 2-D echocardiogram - Continue rest of her home medications - Continue oxygen and as necessary albuterol nebulization - Patient currently on fentanyl patch and neural stimulator for pain - DVT prophylaxis
--- NOTE | 2017-01-25 03:29 | NUR ---
NS INFUSING AT 75 ML/HR ORDERED. PT EVALUATED BY HOUSE STAFF. NO VOMITTING SINCE ARRIVAL TO ED
--- NOTE | 2017-01-25 03:30 | NUR ---
PT'S RM ASSIGNMENT 178 BED 1
--- NOTE | 2017-01-25 03:39 | NUR ---
FINGERSTICK GLUCOSE LEVEL READING 154
--- NOTE | 2017-01-25 03:54 | NUR ---
PT ASLEEP, AWOKE EASILY TO VERBAL STIMULIZATION PT MEDICATED WITH 4 MG ZOFRAN IV FOR NAUSEA. PT CONTIUES TO REFUSE TO CHANGE INTO HOSPITAL GOWN. STATES "I'M NOT GOING TO CHANGE UNTIL I GET UPSTAIRS" PT IMMEDIATLY BACK TO SLEEP
--- NOTE | 2017-01-25 05:19 | NUR ---
DR ALVAREZ AND HOUSE STAFF AT BEDSIDE. PT HAS FENTANYL PATCH TO MID ABDOMEN AND PAIN PUMP PALPABLE IN LEFT ABDOMEN.
[2017-01-25 05:50] VITALS: BP 150/68
--- NOTE | 2017-01-25 05:54 | NUR ---
PT AMBULATORY TO BATHROOM, STEADY GAIT
--- NOTE | 2017-01-25 06:17 | NUR ---
PT AMBULATING IN AND OUT OF ROOM WITH FLUIDS ON AN IV POLE. REPEATEDLY STATING "I WANT TO LEAVE, I DON'T WANT TO STAY" "I'M SO PANICKY RIGHT NOW" HOUSE STAFF PAGED TO COME DOWN TO SPEAK TO PATIENT
--- NOTE | 2017-01-25 06:22 | NUR ---
HOUSE STAFF AT BEDSIDE AGAIN PER PATIENT REQUEST. PATIENT REPORTING TO HOUSE STAFF, "I'M SO PANICKY AND I DON'T WANT TO HAVE TO PAY ANYTHING. THAT IS NOT HELPING MY HEALTH! MY STOMACH IS UPSET, I HAVE PAIN, I AM PANICING, GET ME BACK ON TRACK! I DON'T KNOW WHAT YOU'RE GETTING ME IN TO! I WANT TO TALK TO A MARKETING PROGRAMS MANAGER BEFORE I SIGN ANYTHING!"
--- NOTE | 2017-01-25 06:42 | NUR ---
AM BLOODWORK DRAWN AND SENT TO LAB.
--- NOTE | 2017-01-25 06:44 | NUR ---
PATIENT INFORMED MULTIPLE TIMES THAT HER RN EVELIN IS OBTAINING MEDS ORDERED BY HOUSE STAFF. PATIENT CONTINUES TO ASK MULTIPLE STAFF MEMEBERS FOR HER MEDICATION AND CALLING OUT "HELP ME!" FROM HER ROOM TO THE NURSES STATION.
--- NOTE | 2017-01-25 06:48 | NUR ---
PT REFUSING EKG UNTIL SHE MEDICATED TRIED TWICE TO OBTAIN EKG.
[2017-01-25 06:50] LABS: ABSOLUTE BASOPHIL COUNT 0.1 /CUMM (0.0-0.2); ABSOLUTE EOSINOPHIL COUNT 0.2 /CUMM (0.0-0.7); ABSOLUTE GRANULOCYTE CT 10.3 /CUMM (1.4-6.5); ABSOLUTE LYMPH COUNT 1.9 /CUMM (1.2-3.4); ABSOLUTE MONOCYTE COUNT 0.6 /CUMM (0.10-0.60); BASOPHIL % 0.9 % (0.0-2.0); EOSINOPHIL % 1.7 % (0-5); HEMATOCRIT 44.6 % (37-47); MEAN CORPUSCULAR HGB 27.9 PG (27.0-31.0); MEAN CORPUSCULAR HGB CONC 31.7 G/DL (33.0-37.0); MEAN CORPUSCULAR VOLUME 87.8 FL (81.0-99.0); MEAN PLATELET VOLUME 7.5 FL (7.4-10.4); PLATELET COUNT 342 /CUMM (130-400); RBC DISTRIBUTION WIDTH 13.2 % (11.5-14.5); RED BLOOD CELL CT 5.08 /CUMM (4.20-5.40); WHITE BLOOD CELL COUNT 13.2 /CUMM (4.8-10.8)
--- NOTE | 2017-01-25 06:57 | NUR ---
PATIENT REFUSING EKG "UNTIL I AM MEDICATED!" PATIENT MEDICATED W/ VALIUM AND ZOFRAN PER EMAR. TOLERATED WELL. PATIENT NOW ON PHONE W/ AT THIS TIME. PATIENT REPORTS, "I WILL DO THE EKG WHEN I CAN SIT STILL. AND I STILL WANT THE DAYTIME PEOPLE TO COME IN HERE AND EXPLAIN THIS OBSERVATION STATUS TO ME AGAIN BECAUSE I AIN'T PAYING ANY BILLS!"
--- NOTE | 2017-01-25 06:59 | NUR ---
ANGIE JAFFE AT BEDSIDE ATTEMPTING TO OBTAIN EKG.
--- NOTE | 2017-01-25 07:07 | NUR ---
PATIENT NOW STATES "I NEED TO GO. MY HAS CANCER AND ISN'T DOING WELL. SO I NEED TO GO NOW." PATIENT INFORMED WAITING FOR HOUSE STAFF TO RETURN TO BEDSIDE TO DISCUSS POC W/ PATIENT AND FOR PATIENT TO INFORM THEM OF HER DECISION.
--- NOTE | 2017-01-25 08:13 | NUR ---
RETURNED FROM US; PER US TECH, AFTER 2 IMAGES, PT SAT UP AND REFUSED TEST.
--- NOTE | 2017-01-25 08:40 | NUR ---
PT DEMANDING IV TO BE TAKEN OUT AND WANTS TO LEAVE, HOUSE STAFF AWARE AND WILL BE DOWN. IV REMOVED PER PT REQUEST, PT STATES SHE DOES NOT WANT TO PAY FOR THIS AND HAS A SICK AT HOME. HOUSE STAFF IN ROOM TALKING WITH PT.
--- NOTE | 2017-01-25 08:50 | NUR ---
PT LEFT WITHOUT SIGNING AMA PAPERWORK, WALKED OUT SAYING I HAVE TO GO. HOUSESTAFF IN ATTENDANCE.
--- NOTE | 2017-01-25 09:21 | Event Note ---
See Addendum Event Note Event Note: I was called by ER nurses around 8:45 AM that patient wants to leave AMA. I went to see the patient and convinced her in detail but patient was not agreeable to stay in ER even though she fully understand the consequences of being AMA. First she was agreeable to sign AMA but later on she left without signing AMA form.
--- NOTE | 2017-01-25 11:58 | ULTRASOUND REPORT ---
EXAMINATION: US ABDOMEN LIMITED CLINICAL INFORMATION: This is a [id number] female with history of nausea and vomiting. COMPARISON: Comparison is made to a CT scan dated 01/24/2017 TECHNIQUE: Real-time imaging of the right upper quadrant abdominal viscera was attempted. FINDINGS: The study was initiated. However, the patient sat up and refused to complete the ultrasound. No significant information was achieved during the study. IMPRESSION: Unsuccessful attempt at abdominal ultrasound.
== END 2017-01-25 09:00 | disposition left against medical advice (07) ==
LOC: ERH 16:45 → ERHI 01-25 00:57 → ENRESERV 01-25 03:19 → CANRESERV 01-25 03:19 → ENRESERV 01-25 03:27 → ERHI 01-25 09:00
PROVIDERS: Physician Assistant; Student in an Organized Health Care Education/Training Program; ADMIT Internal Medicine
DX: R11.2 Nausea with vomiting, unspecified (principal); R19.7 Diarrhea, unspecified; F17.200 Nicotine dependence, unspecified, uncomplicated; F11.20 Opioid dependence, uncomplicated; E11.9 Type 2 diabetes mellitus without complications; J44.9 Chronic obstructive pulmonary disease, unspecified; K50.90 Crohn's disease, unspecified, without complications; E78.5 Hyperlipidemia, unspecified; G62.9 Polyneuropathy, unspecified; Z80.1 Family history of malignant neoplasm of trachea, bronchus and lung; G89.4 Chronic pain syndrome; E55.9 Vitamin D deficiency, unspecified; F41.9 Anxiety disorder, unspecified
CPT/HCPCS: 74177; 82436; 87045; 93005; 93010; 96372; 96374; 96375; 96376; J1644; J1815; J1885; J2405; J3360

== ENCOUNTER 2017-02-07 08:19 | Emergency (ER) | payer OTHER, MEDICARE ==
[~2017-02-07] VITALS: Ht 160 cm; Wt 68.0 kg
--- NOTE | 2017-02-07 08:47 | ED CARDIAC/CP/PALPITATIONS ---
History of Present Illness General Chief Complaint: Dyspnea (COPD, CHF, Other) Stated Complaint: DIFFICULTY BREATHING Source: patient, old records Exam Limitations: no limitations Vital Signs & Intake/Output Vital Signs & Intake/Output Vital Signs Date Time Temp Pulse Resp B/P B/P Pulse O2 O2 Flow FiO2 Mean Ox Delivery Rate 02/07 1043 97.8 79 20 186/78 95 Nasal 4.0L Cannula 02/07 0834 94 Nasal 5.0L Cannula 02/07 0826 70 20 159/81 90 Room Air Allergies Coded Allergies: Sulfa (Sulfonamide Antibiotics) (Intermediate, HIVES 01/09/17) tioconazole (Intermediate, VAGINA SWELLING 01/09/17) promethazine (From PHENERGAN) (LEGS STARTED JUMPING PER PT 01/24/17) metoclopramide (From REGLAN) (Intermediate, ANTSY, RESTLESS LEGS 01/09/17) prochlorperazine (From COMPAZINE) (Intermediate, JITTERY, "JUMP OUT OF MY SKIN" 01/09/17) Reconcile Medications Diazepam 5 MG TABLET 1 TAB PO TID ANXIETY (Reported) Ergocalciferol (Vitamin D2) (Vitamin D2) 50,000 UNIT CAPSULE 1 CAP PO QMON SUPPLEMENT (Reported) Fentanyl 100 MCG/HOUR PATCH.TD72 2 PAT TOP Q48 PAIN (Reported) Fentanyl 75 MCG/HOUR PATCH.TD72 1 PAT TOP Q48 PAIN (Reported) Furosemide (Lasix) 40 MG TABLET 1 TAB PO DAILY PRN DIURETIC (Reported) Halobetasol Propionate 15 GM CREAM..G. 1 BERE TOP BID BOTH HANDS ECZEMA ( Reported) Insulin Aspart, Recombinant (Novolog Flexpen) (Unknown Strength) INSULN.PEN ( Unknown Dose) SEE SLIDING SCALE PRN DM (Reported) Insulin Glargine,Hum.rec.anlog (Toujeo Solostar) 300 UNIT/ML (1.5 ML) INSULN.PEN 70 UNITS SQ BID DIABETES (Reported) Ipratropium/Albuterol Sulfate (Iprat-Albut 0.5-3(2.5) MG/3 Ml) 0.5 MG-3 MG (2.5 MG BASE)/3 ML AMPUL.NEB 1 VIAL INH/SCOTT BID PRN COPD (Reported) Lansoprazole (Prevacid) 30 MG CAPSULE.DR 1 CAP PO DAILY ACID REFLUX (Reported ) Ondansetron (Ondansetron Odt) 8 MG TAB.RAPDIS 1 TAB PO Q6 PRN NAUSEA/VOMITING (Reported) Simvastatin (Zocor*) 10 MG TABLET 1 TAB PO QPM CHOLESTEROL (Reported) Triage Note: PT PRESENTS TO ER C/O OF SOB AND CHEST PAIN SINCE 5AM. PT STATES SHE HAS A HX OF COPD AND IS NORMALLY ON OXYGEN BUT LAST NIGHT WHILE SHE WAS IN BED SHE DEVELOPED SOB AND CHEST PAIN. PT SAT 90% ON 5L OF OXYGEN VIA NC. PT STATES NORMAL 02 BASELINE IS HIGH 80S. PT STATES SHE CURRENTLY STILL SMOKES 5 CIGARETTES A DAY. PT STATES SHE WAS IN THE HOSPITAL ALL NIGHT WITH HER AND THEN CAME HOME AND STARTED TO FEEL LOUSY HERSELF. Triage Nurses Notes Reviewed? yes Onset: Abrupt Duration: hour(s): (5 am), constant, continues in ED Timing: recent history Quality/Severity: moderate, severe Location: left side Radiation: no radiation Activities at Onset: none HPI: 62-year-old female comes into emergency room for further evaluation of chest pain and shortness of breath. Patient reports that the chest pain woke her up out of her sleep around 5 AM this morning. Left side of her chest. Patient has a history of COPD and is chronically on oxygen 4-5 L a day. She reports increasing shortness of breath. Denies any vomiting. Denies any fever chills cough. Patient sees Dr. pickens for her lungs. She has never seen a morgue attendant. Denies ever having any prior heart attack. Nothing seems to make the symptoms better or worse. Understands and agrees with plan of care. (NILE VASQUEZ,COREY) Past History Travel History Traveled to [place] past 21 day No Medical History Any Pertinent Medical History? see below for history Neurological: peripheral neuropathy EENT: NONE Cardiovascular: hyperlipidemia Respiratory: COPD (HOME 02 DEPENDENT 4-5L), Hx RUL lung Ca- resected & CTX (? when, ? 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 details History of MRSA: No History of VRE: No History of CDIFF: No Surgical History Surgical History: appendectomy, cholecystectomy, colon resection (03/1996- sigmoid diverticuliti), hernia repair-incisional, hysterectomy, Lobectomy RUL- lung Ca f/b CTX colostomy reversal 2008: ? R hemicolectomy Psychosocial History Who do you live with Family Services at Home Oxygen What is your primary language Niuean Tobacco Use: Current Daily Use Daily Tobacco Use Amount/Type: => 5 Cigarettes daily Family History Family History, If Any: MOTHER (PUD/diverticulitis). , Age 80; Cause: Unknown cause of morbidity or mortality. FHx: heart disease FATHER (urinary bladder Ca, PVD, PUD). , Age 80; Cause: Myocardial infarction. Bladder cancer FH: lung cancer FHx: heart disease Relation not specified for: Breast cancer in sister Liver cancer Hx Contributory? No (COREY SYED) Review of Systems Review of Systems Constitutional: Reports: no symptoms. EENTM: Reports: no symptoms. Respiratory: Reports: see HPI. Cardiovascular: Reports: see HPI. GI: Reports: no symptoms. Genitourinary: Reports: no symptoms. Musculoskeletal: Reports: no symptoms. Skin: Reports: no symptoms. Neurological/Psychological: Reports: no symptoms. Hematologic/Endocrine: Reports: no symptoms. Immunologic/Allergic: Reports: no symptoms. All Other Systems: Reviewed and Negative (COREY SYED) Physical Exam Physical Exam General Appearance: well developed/nourished, alert, awake Head: atraumatic, normal appearance Eyes: Bilateral: normal appearance, EOMI. Ears, Nose, Throat: normal pharynx, normal ENT inspection, hearing grossly normal Neck: normal inspection, full range of motion Respiratory: decreased breath sounds, respiratory distress (mild) Cardiovascular: regular rate/rhythm Gastrointestinal: soft Back: normal inspection Extremities: normal inspection, normal range of motion, no edema Neurologic/Psych: awake, alert, normal gait, normal mood/affect Skin: intact, normal color Core Measures ACS in differential dx? No Severe Sepsis Present: No Septic Shock Present: No (COREY SYED) Progress Differential Diagnosis: AMI, aortic dissection, atrial fibrillation, cholecystitis, costochondritis, hyperkalemia, hypovolemia, hyperthyroid, musculoskeletal pain, myocarditis, pancreatitis, pericarditis, pneumonia, pneumothorax, pulmonary embolism, PUD/GERD, PVCs/PACs, respiratory failure, rib fracture, sepsis, unstable angina, V-fib/V-Tach, WPW syndrome Plan of Care: Orders Procedure Date/time Status TROPONIN LEVEL 02/08 840 Complete D-DIMER 02/08 840 Complete COMPREHENSIVE METABOLIC PANEL 02/08 840 Complete CBC WITHOUT DIFFERENTIAL 02/08 840 Complete EKG 02/07 829 Active Laboratory Tests 02/07/17 0906: Anion Gap 11, Estimated GFR > 60, BUN/Creatinine Ratio 15.0, Glucose 336 H, Calcium 9.3, Total Bilirubin 0.6, AST 18, ALT 33, Alkaline Phosphatase 105, Troponin I < 0.01, Total Protein 6.7, Albumin 3.9, Globulin 2.8, Albumin/ Globulin Ratio 1.4, D-Dimer 280 H, CBC w Diff NO MAN DIFF REQ, RBC 5.22, MCV 87.3, MCH 28.3, RDW 12.9, MPV 8.0, Gran % 85.5 H, Lymphocytes % 10.6 L, Monocytes % 2.5, Eosinophils % 1.1, Basophils % 0.3, Absolute Granulocytes 12.2 H, Absolute Lymphocytes 1.5, Absolute Monocytes 0.4, Absolute Eosinophils 0.2, Absolute Basophils 0, PUBS MCHC 32.4 L Diagnostic Imaging: Viewed by Me: Radiology Read. Discussed w/RAD: Radiology Read. Initial ED EKG: normal intervals, normal p-waves, normal QRS complex, normal sinus rhythm, rate (82) Comments: SERVICE DATE: 02/07/17 EXAM TYPE: RAD - XRY-CHEST XRAY, PA AND LATERAL EXAMINATION: XR CHEST CLINICAL INFORMATION: Shortness of breath COMPARISON: CTA chest from 07/20/2016. Chest x-ray from 03/03/2016. TECHNIQUE: 2 views of the chest were obtained. FINDINGS: The cardiomediastinal silhouette is stable. Chain suture material is redemonstrated within the right hilar region. There is no consolidation, pulmonary edema, pleural effusion, or pneumothorax evident. Minor degenerative changes of the spine. There has been partial resection of the right sixth rib, unchanged. No acute osseous abnormality. Clips in the right upper quadrant of the abdomen. IMPRESSION: No acute abnormality. Postsurgical changes in the right hemithorax, stable. DICTATED BY: TYRONE STRATTON MD DATE/TIME DICTATED:02/07/17955 [facility] SPECIALIST:DOMINGA DATE/TIME TRANSCRIBED:02/07/1795502/07/2017 11:11:07 AM Right when the patient was told that she was going to go home if her second EKG and troponin were she suddenly said that she became very dizzy and went down to the ground with her eyes shut. She lowered herself slowly. She did not collapse. She did not fall to the ground hard. She did not hit her head. She was not responding but had a strong pulse. She was lifted up in place in the stretcher and woke up after a sternal rub. Upon awaking within 20-30 seconds the patient was acting completely normal again. She was able to sit up and stand. Patient was yelling at the staff and being belligerent saying that she was telling them that she felt dizzy. This is the first time that she has stated that she was dizzy was a second before this event happened. She says that she does not want to stay here any longer. Patient is leaving AGAINST MEDICAL ADVICE. She refuses to sign any paperwork. Patient was told that it was unsafe for her to go home at this time and she should stay for further observation and a second EKG and second troponin. Patient does not want stay here despite this information. She is alert and oriented and mentally competent and able to make medical decisions. Patient was seen by Dr. brown as well. He also tried to tell her to stay. Despite all this knowledge patient does not want to stay here. She is leaving AGAINST MEDICAL ADVICE but refuses to sign any paperwork. Patient's age-adjusted d-dimer is negative. At this time there is no evidence of acute coronary syndrome but that was explained to the patient is to why she was to stay longer for further observation. (COREY SYED) Departure Departure Disposition: HOME OR SELF CARE Condition: Stable Clinical Impression Primary Impression: Atypical chest pain Referrals: SARITA ARGUELLO MD (PCP/Family) Additional Instructions: Please go over all results of today's visit with your primary care doctor. Contact your primary care doctor to let them know you were here in the emergency room. There may be nonspecific findings which may not be related to your visit today here in the emergency room but may require further evaluation and chronic monitoring by your primary care doctor. If you had a laceration today the chance of foreign body always remains. You should follow-up with your primary care doctor for recheck in 3-5 days for a wound check. If you had an x-ray done there is a chance that a fracture could have been missed on initial read and you should follow-up with your primary care doctor for repeat x-rays if symptoms persist. If your blood pressure was elevated here in the emergency room please have rechecked by her primary care doctor within the next 48 hours by your primary care doctor. If you were prescribed a narcotic here in the emergency room or any type of controlled substances you're not allowed to drive while taking this medication or operate any type of heavy machinery. Narcotics can make you feel lightheaded dizziness nausea and can cause constipation. 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 Thank you for choosing [facility] emergency room. Please return to the emergency room immediately if you have any other concerns worsening of symptoms. Departure Forms: Customer Survey General Discharge Information (COREY SYED) PA/AGED OR DISABLED CARER Co-Sign Statement Statement: ED Attending supervision documentation- [X] I saw and evaluated the patient. I have also reviewed all the pertinent lab results and diagnostic results. I agree with the findings and the plan of care as documented in the PA's/AGED OR DISABLED CARER's documentation. [] I have reviewed the ED Record and agree with the PA's/AGED OR DISABLED CARER's documentation. [] Additions or exceptions (if any) to the PAs/AGED OR DISABLED CARER's note and plan are summarized below: [] The patient became agitated after an episode of falling on the ground and possibly having a pseudoseizure. She declined to stay in the emergency department for further evaluation. She said she would return should her chest pain come back and agreed to follow-up with her primary care doctor this week. (SEAMUS BROWN DO) Critical Care Note Critical Care Note Critical Care Time: non-applicable (COREY SYED) Critical Care Note Critical Care Time: non-applicable (COREY SYED)
[2017-02-07 09:17] LABS: ABSOLUTE BASOPHIL COUNT 0 /CUMM (0.0-0.2); ABSOLUTE EOSINOPHIL COUNT 0.2 /CUMM (0.0-0.7); ABSOLUTE GRANULOCYTE CT 12.2 /CUMM (1.4-6.5); ABSOLUTE LYMPH COUNT 1.5 /CUMM (1.2-3.4); ABSOLUTE MONOCYTE COUNT 0.4 /CUMM (0.10-0.60); BASOPHIL % 0.3 % (0.0-2.0); EOSINOPHIL % 1.1 % (0-5); HEMATOCRIT 45.6 % (37-47); MEAN CORPUSCULAR HGB 28.3 PG (27.0-31.0); MEAN CORPUSCULAR HGB CONC 32.4 G/DL (33.0-37.0); MEAN CORPUSCULAR VOLUME 87.3 FL (81.0-99.0); RBC DISTRIBUTION WIDTH 12.9 % (11.5-14.5); RED BLOOD CELL CT 5.22 /CUMM (4.20-5.40); WHITE BLOOD CELL COUNT 14.2 /CUMM (4.8-10.8)
[2017-02-07 09:31] LABS: GRANULOCYTE % 85.5 % (42.2-75.2); PLATELET COUNT 280 /CUMM (130-400)
--- NOTE | 2017-02-07 10:04 | RADIOLOGY REPORT ---
EXAMINATION: XR CHEST CLINICAL INFORMATION: Shortness of breath COMPARISON: CTA chest from 07/20/2016. Chest x-ray from 03/03/2016. TECHNIQUE: 2 views of the chest were obtained. FINDINGS: The cardiomediastinal silhouette is stable. Chain suture material is redemonstrated within the right hilar region. There is no consolidation, pulmonary edema, pleural effusion, or pneumothorax evident. Minor degenerative changes of the spine. There has been partial resection of the right sixth rib, unchanged. No acute osseous abnormality. Clips in the right upper quadrant of the abdomen. IMPRESSION: No acute abnormality. Postsurgical changes in the right hemithorax, stable.
[2017-02-07 10:43] VITALS: BP 186/78
== END 2017-02-07 11:15 ==
LOC: ERH 08:19
PROVIDERS: Physician Assistant Medical
DX: R07.89 Other chest pain (principal)
CPT/HCPCS: 93005; 93010; 96374; 96375; 96376; J2405; J2930

== ENCOUNTER 2017-02-20 11:33 | Emergency (ER) | payer OTHER, MEDICARE ==
[~2017-02-20] VITALS: Ht 160 cm; Wt 2.0 kg
--- NOTE | 2017-02-20 11:54 | ED GI/GU/ABDOMINAL COMPLAINT ---
History of Present Illness General Chief Complaint: Nausea, Vomiting, Diarrhea Stated Complaint: VOMTING Source: patient, family, old records Exam Limitations: no limitations Vital Signs & Intake/Output Vital Signs & Intake/Output Vital Signs Date Time Temp Pulse Resp B/P B/P Pulse O2 O2 Flow FiO2 Mean Ox Delivery Rate 02/20 1636 96.6 75 20 175/72 95 Nasal 4.0L Cannula 02/20 1358 97.6 71 18 133/62 99 Nasal 4.0L Cannula 02/20 1240 98 Nasal 4.0L Cannula 02/20 1136 98.5 88 16 131/80 98 Room Air Room Air Allergies Coded Allergies: Sulfa (Sulfonamide Antibiotics) (Intermediate, HIVES 02/20/17) tioconazole (Intermediate, VAGINA SWELLING 02/20/17) promethazine (From PHENERGAN) (LEGS STARTED JUMPING PER PT 02/20/17) metoclopramide (From REGLAN) (Intermediate, ANTSY, RESTLESS LEGS 02/20/17) prochlorperazine (From COMPAZINE) (Intermediate, JITTERY, "JUMP OUT OF MY SKIN" 02/20/17) Reconcile Medications Citalopram Hydrobromide (Citalopram HBr) 20 MG TABLET 1 TAB PO DAILY DEPRESSION (Reported) Diazepam 5 MG TABLET 1 TAB PO TID ANXIETY (Reported) Ergocalciferol (Vitamin D2) (Vitamin D2) 50,000 UNIT CAPSULE 1 CAP PO QMON SUPPLEMENT (Reported) Fentanyl 100 MCG/HOUR PATCH.TD72 2 PAT TOP Q48 PAIN (Reported) Fentanyl 75 MCG/HOUR PATCH.TD72 1 PAT TOP Q48 PAIN (Reported) Furosemide (Lasix) 40 MG TABLET 1 TAB PO DAILY PRN DIURETIC (Reported) Halobetasol Propionate 15 GM CREAM..G. 1 BERE TOP BID BOTH HANDS ECZEMA ( Reported) Insulin Aspart, Recombinant (Novolog Flexpen) (Unknown Strength) INSULN.PEN ( Unknown Dose) SEE SLIDING SCALE PRN DM (Reported) Insulin Glargine,Hum.rec.anlog (Toujeo Solostar) 300 UNIT/ML (1.5 ML) INSULN.PEN 70 UNITS SQ BID DIABETES (Reported) Ipratropium/Albuterol Sulfate (Iprat-Albut 0.5-3(2.5) MG/3 Ml) 0.5 MG-3 MG (2.5 MG BASE)/3 ML AMPUL.NEB 1 VIAL INH/SCOTT BID PRN COPD (Reported) Lansoprazole (Prevacid) 30 MG CAPSULE. 1 CAP PO DAILY ACID REFLUX (Reported ) Ondansetron (Ondansetron Odt) 8 MG TAB.RAPDIS 1 TAB PO Q6 PRN NAUSEA/VOMITING (Reported) Simvastatin (Zocor*) 10 MG TABLET 1 TAB PO QPM CHOLESTEROL (Reported) Triage Note: PT TO TRIAGE WITH VOMTING FOR A WEEK. STATES SHE THINKS THERES SOMETHING WRONG WITH A PAIN PUMP. PT STATES SHE HAS HAD UNCONTROLLED ANXIETY. PT IS SHAKING AND STATES IT IS FROM ANIXETY ALSO. DENIES NEW PAIN. Triage Nurses Notes Reviewed? yes ? n Is pt currently ? No HPI: Patient presents with nausea or vomiting, chronic abdominal pain and increasing depression and anxiety. Patient was seen by her pain management doctor on Tuesday who evaluated her pain pump and told that everything was working normally. Patient states that she is nauseous and keeps throwing up. Patient states that she is able to eat and drink and food does not seem to make her nausea or her vomiting worse. Patient has been seen here previously for the same in been seen at [place] emergency room. Patient states that the thing that helps her nausea vomiting the most is Xanax. Patient received IV Valium when she was here at the beginning of the month but states that the Xanax works better for her. Patient spoke to her primary care physician who wants her to be evaluated by crisis for her increasing depression and anxiety. Patient denies any suicidal or homicidal ideations. Patient states that she has multiple stressors at home. Patient denies any hallucinations. She is urinating more frequently. Patient denies any dysuria. Her abdominal pain she states is chronic. Pain is in the right upper and right mid quadrant. Patient has a history of Crohn's disease. Patient states the pain is cramping in nature. Patient rates the pain as 4 out of 10. There is no increased in her pain. Past History Travel History Traveled to [place] past 21 day No Medical History Any Pertinent Medical History? see below for history Neurological: peripheral neuropathy EENT: NONE Cardiovascular: hyperlipidemia Respiratory: COPD (HOME 02 DEPENDENT 4-5L), Hx RUL lung Ca- resected & CTX (? when, ? 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 R hemicolectomy Psychosocial History Who do you live with Family Services at Home Oxygen What is your primary language Pashto Tobacco Use: Current Daily Use Daily Tobacco Use Amount/Type: => 5 Cigarettes daily ETOH Use: denies use Family History Family History, If Any: MOTHER (PUD/diverticulitis). , Age 80; Cause: Unknown cause of morbidity or mortality. FHx: heart disease FATHER (urinary bladder Ca, PVD, PUD). , Age 80; Cause: Myocardial infarction. Bladder cancer FH: lung cancer FHx: heart disease Relation not specified for: Breast cancer in sister Liver cancer Hx Contributory? No Review of Systems Review of Systems Constitutional: Reports: no symptoms. EENTM: Reports: no symptoms. Respiratory: Reports: no symptoms. Cardiovascular: Reports: no symptoms. GI: Reports: see HPI, nausea, vomiting. Genitourinary: Reports: no symptoms. Musculoskeletal: Reports: no symptoms. Skin: Reports: no symptoms. Neurological/Psychological: Reports: see HPI, anxiety. Hematologic/Endocrine: Reports: no symptoms. Immunologic/Allergic: Reports: no symptoms. All Other Systems: Reviewed and Negative Physical Exam Physical Exam General Appearance: well developed/nourished, alert, awake, anxious, moderate distress Head: atraumatic, normal appearance Eyes: Bilateral: PERRL, EOMI. Ears, Nose, Throat, Mouth: hearing grossly normal Neck: normal inspection, supple Respiratory: normal breath sounds, chest non-tender, no respiratory distress, lungs clear Cardiovascular: regular rate/rhythm, normal peripheral pulses Gastrointestinal: normal bowel sounds, soft, non-tender, no organomegaly Back: normal inspection, normal range of motion Extremities: normal range of motion Neurologic/Psych: no motor/sensory deficits, awake, alert, oriented x 3, normal mood/affect Skin: intact, normal color, warm/dry Core Measures ACS in differential dx? No Severe Sepsis Present: No Septic Shock Present: No Progress Differential Diagnosis: UTI/pyelo, ANXIETY Plan of Care: Orders Procedure Date/time Status Add-on Test (ER Only) 02/20 1352 Active ED CRISIS PSYCH CONSULT 02/20 1254 Active URINE DRUGS OF ABUSE 02/20 1240 Complete ETHANOL 02/20 1208 Complete MIXED VENOUS BLOOD GAS (GEN) 02/20 1155 Complete URINALYSIS 02/20 1155 Complete TROPONIN LEVEL 02/20 1155 Complete COMPREHENSIVE METABOLIC PANEL 02/20 1155 Complete CBC WITHOUT DIFFERENTIAL 02/20 1155 Complete ACETONE 02/20 1155 Complete EKG 02/20 1155 Active Current Medications Sig/Muriel Start time Last Medication Dose Stop Time Status Admin Sodium Chloride 1,000 ML ONCE ONE 02/20 1345 AC 02/20 (Normal Saline 0.9%) 02/20 2144 1347 Laboratory Tests 02/20/17 1240: Urine Opiates Screen > 4000.00 H, Methadone Screen < 40, Barbiturate Screen < 60, Ur Phencyclidine Scrn < 6.00, Amphetamines Screen 101, U Benzodiazepines Scrn > 800 H, Urine Cocaine Screen < 50, Urine Cannabis Screen > 80.00 H, Urine Color STRAW, Urine Clarity CLEAR, Urine pH 7.5, Ur Specific [place] 1.010, Urine Protein NEG, Urine Ketones TRACE H, Urine Nitrite NEG, Urine Bilirubin NEG, Urine Urobilinogen 0.2, Ur Leukocyte Esterase NEG, Ur Microscopic EXAM NOT REQUIRED, Urine Hemoglobin NEG, Urine Glucose >=1000 H 02/20/17 1208: Bicarbonate Actual 32 H, Mixed VBG pH 7.34, Mixed VBG pCO2 61 H, Mixed VBG O2 Saturation 32 L, P-50 (Temp Corrected) N, Carboxyhemoglobin 6.2 *H, O2 Concentration % 4L, Temperature 98.5, O2 Delivery Method N/C, Anion Gap 9, Estimated GFR > 60, BUN/Creatinine Ratio 10.0, Glucose 333 H, Calcium 9.0, Total Bilirubin 0.4, AST 33, ALT 58 H, Alkaline Phosphatase 133 H, Troponin I < 0.01, Total Protein 6.7, Albumin 4.1, Globulin 2.6, Albumin/Globulin Ratio 1.6 , CBC w Diff NO MAN DIFF REQ, RBC 4.89, MCV 87.4, MCH 28.0, RDW 13.1, MPV 7.6, Gran % 82.2 H, Lymphocytes % 13.3 L, Monocytes % 3.7, Eosinophils % 0.5, Basophils % 0.3, Absolute Granulocytes 9.3 H, Absolute Lymphocytes 1.5, Absolute Monocytes 0.4, Absolute Eosinophils 0.1, Absolute Basophils 0, PUBS MCHC 32.0 L, Phlebotomy Draw Site LAC, Serum Alcohol < 10.0, Acetone Level NEGATIVE Initial ED EKG: NSR, nonspecific ST T wave chg Prior EKG: unchanged Comments: PT HAS BEEN SEEN AND EVALUATED BY THE SOFT SUGAR OPERATOR HEAD. OUTPATIENT ARRANGED. PT IS STABLE FOR DISCHARGE. Departure Departure Disposition: HOME OR SELF CARE Condition: Stable Clinical Impression Primary Impression: Anxiety Secondary Impressions: Depression, Upper abdominal pain, unspecified, Vomiting Referrals: SAUNDRA PINTO,SARITA (PCP/Family) Additional Instructions: FOLLOW UP WITH OUTPATIENT APPOINTMENT RETURN FOR ANY CONCERNS Departure Forms: Customer Survey General Discharge Information Prescriptions: Current Visit Scripts Alprazolam (Xanax) 1 TAB PO Q8P PRN ANXIETY #30 TAB
[2017-02-20 12:23] LABS: ABSOLUTE BASOPHIL COUNT 0 /CUMM (0.0-0.2); ABSOLUTE EOSINOPHIL COUNT 0.1 /CUMM (0.0-0.7); ABSOLUTE GRANULOCYTE CT 9.3 /CUMM (1.4-6.5); ABSOLUTE LYMPH COUNT 1.5 /CUMM (1.2-3.4); ABSOLUTE MONOCYTE COUNT 0.4 /CUMM (0.10-0.60); BASOPHIL % 0.3 % (0.0-2.0); EOSINOPHIL % 0.5 % (0-5); GRANULOCYTE % 82.2 % (42.2-75.2); HEMATOCRIT 42.7 % (37-47); MEAN CORPUSCULAR VOLUME 87.4 FL (81.0-99.0); MEAN PLATELET VOLUME 7.6 FL (7.4-10.4); PLATELET COUNT 340 /CUMM (130-400); RBC DISTRIBUTION WIDTH 13.1 % (11.5-14.5); RED BLOOD CELL CT 4.89 /CUMM (4.20-5.40); WHITE BLOOD CELL COUNT 11.3 /CUMM (4.8-10.8)
[2017-02-20] MEDS ORDERED: CITALOPRAM HBR20 MG PO (12:43)
[2017-02-20 16:36] VITALS: BP 175/72
[2017-02-20] MEDS ORDERED: XANAX1 M1 PO (17:00)
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
== END 2017-02-20 17:11 ==
LOC: ERH 11:33
PROVIDERS: Emergency Medicine
DX: R10.10 Upper abdominal pain, unspecified (principal); R11.10 Vomiting, unspecified; F41.9 Anxiety disorder, unspecified; F32.9 Major depressive disorder, single episode, unspecified
CPT/HCPCS: 80307; 81003; 93005; 93010; 96361; 96374; 96375; 96376; G0463; G0480; J2405; J3360

== ENCOUNTER 2017-10-22 08:13 | Emergency (ER) | payer OTHER, MEDICARE ==
[~2017-10-22] VITALS: Ht 160 cm; Wt 76.2 kg
[~2017-10-22 08:13] MED LIST changes: +CITALOPRAM HBR20 MG PO; +GABAPENTIN300 M2 PO; +LINZESS145 MC1 PO; +REMERON15 M2 PO; +XANAX1 M1 PO
--- NOTE | 2017-10-22 09:33 | ED GI/GU/ABDOMINAL COMPLAINT ---
History of Present Illness General Chief Complaint: Abdominal Pain/Flank Pain Stated Complaint: ABD PAIN Source: patient, old records Exam Limitations: no limitations Vital Signs & Intake/Output Vital Signs & Intake/Output Vital Signs Date Time Temp Pulse Resp B/P B/P Pulse O2 O2 Flow FiO2 Mean Ox Delivery Rate 10/22 1727 98.3 67 20 126/65 91 Nasal 4.0L Cannula 10/22 1400 97.2 90 20 118/63 96 Nasal 4.0L Cannula 10/22 1306 99.0 88 22 130/66 94 Nasal 4.0L Cannula 10/22 1143 99.2 90 22 128/70 98 Nasal 6.0L Cannula 10/22 1029 99 Room Air 10/22 1014 99.2 94 18 126/70 94 Nasal Cannula 10/22 0819 98.4 96 18 139/84 88 Room Air Allergies Coded Allergies: Sulfa (Sulfonamide Antibiotics) (Intermediate, HIVES 10/09/17) tioconazole (Intermediate, VAGINA SWELLING 10/09/17) promethazine (From PHENERGAN) (LEGS STARTED JUMPING PER PT 10/09/17) metoclopramide (From REGLAN) (Intermediate, ANTSY, RESTLESS LEGS 10/09/17) prochlorperazine (From COMPAZINE) (Intermediate, JITTERY, "JUMP OUT OF MY SKIN" 10/09/17) Reconcile Medications Amoxicillin/Potassium Clav (Augmentin 875-125 Tablet) 875 MG-125 MG TABLET 1 TAB PO BID ASPIRATION PNA Citalopram Hydrobromide (Citalopram HBr) 20 MG TABLET 1 TAB PO DAILY DEPRESSION (Reported) Diazepam 5 MG TABLET 1 TAB PO TID ANXIETY (Reported) Ergocalciferol (Vitamin D2) (Vitamin D2) 50,000 UNIT CAPSULE 1 CAP PO QMON SUPPLEMENT (Reported) Fentanyl 100 MCG/HOUR PATCH.TD72 2 PAT TOP Q48 PAIN (Reported) Fentanyl 75 MCG/HOUR PATCH.TD72 1 PAT TOP Q48 PAIN (Reported) Furosemide (Lasix) 40 MG TABLET 1 TAB PO DAILY PRN DIURETIC (Reported) DID NOT RECEIVE Gabapentin 300 MG CAPSULE 1 CAP PO TID NERVE PAIN (Reported) Halobetasol Propionate 15 GM CREAM..G. 1 BERE TOP BID BOTH HANDS ECZEMA ( Reported) Insulin Aspart, Recombinant (Novolog Flexpen) (Unknown Strength) INSULN.PEN ( Unknown Dose) SEE SLIDING SCALE PRN DM (Reported) Insulin Glargine,Hum.rec.anlog (Toujeo Solostar) 300 UNIT/ML (1.5 ML) INSULN.PEN 70 UNITS SQ BID DIABETES (Reported) Ipratropium/Albuterol Sulfate (Iprat-Albut 0.5-3(2.5) MG/3 Ml) 0.5 MG-3 MG (2.5 MG BASE)/3 ML AMPUL.NEB 1 VIAL INH/SCOTT BID PRN COPD (Reported) Linaclotide (Linzess) 145 MCG CAPSULE 1 CAP PO DAILY PRN GI (Reported) Ondansetron (Ondansetron Odt) 8 MG TAB.RAPDIS 1 TAB PO Q6 PRN NAUSEA/VOMITING (Reported) Simvastatin (Zocor*) 10 MG TABLET 1 TAB PO QPM CHOLESTEROL (Reported) Triage Note: 62 YO FEMALE TO TRIAGE C/O ABD PAIN, STATES SHE HAD A NEUROSTIMULATOR REMOVED YESTERDAY AT PAIN MANAGEMENT. STATES SHE HAS BEEN SICK SINCE LAST WEEK WITH NVD. PT WEARS OXYGEN AT BASELINE, DID NOT COME TO ER WITH OXYGEN, RA SATS 86%. PT STATES SHE SEES PAIN MANAGMENT FOR HER CHRONS. STATES THIS PAIN FEELS DIFFERENT. LMB X2 DAYS AGO. Triage Nurses Notes Reviewed? yes ? N Is pt currently ? No HPI: Patient is a 62-year-old female with a past medical history significant for O2 dependent ED, DM, Crohn's disease status post right hemicolectomy, HLD, lung cancer status post right upper lobectomy and chemotherapy, chronic pain syndrome with fentanyl pain pump removed yesterday by pain management, and multiple abdominal surgeries, who presents today complaining of one week of nausea, vomiting, abdominal pain, an approximately 4 day history of obstipation. Patient states that the pain became more severe yesterday and that it is not similar to her previous episodes of Crohn's. Patient denies any fever, chills, chest pain, shortness of breath. Patient follows with NICK Francois. (Hayden PINTO,[place]) Past History Travel History Traveled to [place] past 21 day No Medical History Any Pertinent Medical History? see below for history Neurological: peripheral neuropathy EENT: NONE Cardiovascular: hyperlipidemia Respiratory: COPD (HOME 02 DEPENDENT 4-5L), Hx RUL lung Ca- resected & CTX (? when, ? 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 R hemicolectomy Psychosocial History Who do you live with Spouse Services at Home [employer] What is your primary language Belarusian Tobacco Use: Never used Family History Family History, If Any: MOTHER (PUD/diverticulitis). , Age 80; Cause: Unknown cause of morbidity or mortality. FHx: heart disease FATHER (urinary bladder Ca, PVD, PUD). , Age 80; Cause: Myocardial infarction. Bladder cancer FH: lung cancer FHx: heart disease Relation not specified for: Breast cancer in sister Liver cancer Hx Contributory? No (Florentin Balke MD) Review of Systems Review of Systems Constitutional: Denies: chills, fever, malaise. EENTM: Reports: no symptoms. Respiratory: Reports: cough. Denies: short of breath, sputum production. Cardiovascular: Denies: chest pain, palpitations, syncope. GI: Reports: abdominal pain, bloating, constipation, nausea, vomiting. Genitourinary: Reports: dysuria. Denies: frequency, hematuria. Musculoskeletal: Reports: no symptoms. Skin: Reports: no symptoms. (Florentin Blake MD) Physical Exam Physical Exam General Appearance: well developed/nourished, alert, awake, mild distress Head: atraumatic, normal appearance Eyes: Bilateral: normal appearance, PERRL, EOMI, normal inspection. Ears, Nose, Throat, Mouth: hearing grossly normal, dry mucous membranes Neck: normal inspection, supple, full range of motion Respiratory: no respiratory distress, rhonchi, decreased breath sounds in R upper lung field Cardiovascular: regular rate/rhythm, normal peripheral pulses Peripheral Pulses: 2+ radial (R), 2+ radial (L) Gastrointestinal: normal bowel sounds, soft, TTP Extremities: normal range of motion Core Measures ACS in differential dx? No Sepsis Present: No Sepsis Focused Exam Completed? Yes (Hayden PINTO,Florentin) Progress Differential Diagnosis: bowel obstruction, gastritis, kidney stone, ovarian cyst Plan of Care: Orders Procedure Date/time Status FingerStick- Glucose 10/22 1524 Active COMPREHENSIVE METABOLIC PANEL 10/22 0933 Complete CBC WITHOUT DIFFERENTIAL 10/22 932 Complete URINALYSIS 10/22 0912 Complete Current Medications Sig/Muriel Start time Last Medication Dose Stop Time Status Admin Ondansetron HCl 4 MG ONCE ONE 10/22 1530 CAN (Zofran) 10/22 1531 Laboratory Tests 10/22/17 1221: Urine Color YEL, Urine Clarity CLEAR, Urine pH 6.0, Ur Specific [place] 1.020, Urine Protein NEG, Urine Ketones NEG, Urine Nitrite NEG, Urine Bilirubin NEG, Urine Urobilinogen 0.2, Ur Leukocyte Esterase NEG, Ur Microscopic EXAM NOT REQUIRED, Urine Hemoglobin NEG, Urine Glucose >=1000 H 10/22/17 0948: Anion Gap 10, Estimated GFR > 60, BUN/Creatinine Ratio 16.0, Glucose 305 H, Calcium 8.7, Total Bilirubin 0.1 L, AST 16, ALT 23, Alkaline Phosphatase 92, Total Protein 6.1 L, Albumin 3.4 L, Globulin 2.7, Albumin/Globulin Ratio 1.3, CBC w Diff NO MAN DIFF REQ, RBC 4.95, MCV 87.5, MCH 27.8, MCHC 31.8 L, RDW 13.8 , MPV 7.9, Gran % 73.0, Lymphocytes % 13.5 L, Monocytes % 10.2 H, Eosinophils % 2.8, Basophils % 0.5, Absolute Granulocytes 4.9, Absolute Lymphocytes 0.9 L, Absolute Monocytes 0.7 H, Absolute Eosinophils 0.2, Absolute Basophils 0 Patient presents with symptoms including abdominal pain and obstipation. Abdominal x-ray was done which did not show definitive signs of obstruction however cannot rule out an ileus. Abdominal pain addressed with IV acetaminophen and IV ketorolac. Patient is on daily Valium for anxiety, treated with IV Ativan as IV Valium is not available. Patient is also hyperglycemic, treated with aggressive fluid rehydration Given continued abdominal pain and new onset severe back pain will re-assess with CT abd/pelvis with contrast for obstrction or other source of pain, including diverticulitis, or renal caluculus. Morphine used to treat worsening pain. CT was negative for difinitive signs of obstruction, diverticlitis, or renal calculus. Continued treatment with IV zofran, ativan, and morphine were given. Will recheck fingerstick glucose after IV fluid rehydration. Initial ED EKG: none (Florentin Blake MD) Diagnostic Imaging: Viewed by Me: Radiology Read, CT Scan. Discussed w/RAD: Radiology Read, CT Scan. Radiology Impression: no acute abnormality, 1. No CT evidence for acute renal obstruction. 2. Prominent surgical anastomosis at the level of the hepatic flexure. The appearance is overall little change compared to the CT of 2016. Recommend correlation to site of patient's symptoms. 3. Status post cholecystectomy with mild prominence of the common bile duct and mild intrahepatic biliary dilatation. 4. Fatty replacement of the pancreas. 5. Diverticulosis without CT evidence for acute diverticulitis. Initial ED EKG: none Comments: Finally pain and nausea tolerable (Rico Burnett MD) Departure Departure Disposition: HOME OR SELF CARE Condition: Stable Referrals: Fritz Ramos MD (PCP/Family) Departure Forms: Customer Survey General Discharge Information (Florentin Blake MD) Departure Time of Disposition: 1735 Clinical Impression Primary Impression: Postoperative abdominal pain Secondary Impressions: Chronic pain syndrome Resident Co-Sign Statement Statement: ED Attending supervision documentation- x I saw and evaluated the patient. I have also reviewed all the pertinent lab results and diagnostic results. I agree with the findings and the plan of care as documented in the Resident's documentation. [] I have reviewed the ED Record and agree with the Resident's documentation. [] Additions or exceptions (if any) to the Resident's note and plan are summarized below: [] (Rico Burnett MD) ED Attending Observation Initial Observation Note: I have seen and personally examined EMANUEL BOWEN on 10/22/17 at 0938. I agree with the current emergency department documentation. The disposition (admission or discharge) is uncertain at this time, she needs a period of observation for the following reason(s): The ED Nurse caring for this patient has been personally informed as to what the patient is being observed for. (Florentin Blake MD)
[2017-10-22 09:59] LABS: ABSOLUTE BASOPHIL COUNT 0 /CUMM (0.0-0.2); ABSOLUTE EOSINOPHIL COUNT 0.2 /CUMM (0.0-0.7); ABSOLUTE GRANULOCYTE CT 4.9 /CUMM (1.4-6.5); ABSOLUTE LYMPH COUNT 0.9 /CUMM (1.2-3.4); ABSOLUTE MONOCYTE COUNT 0.7 /CUMM (0.10-0.60); BASOPHIL % 0.5 % (0.0-2.0); EOSINOPHIL % 2.8 % (0-5); HEMATOCRIT 43.3 % (37-47); MEAN CORPUSCULAR HGB 27.8 PG (27.0-31.0); MEAN CORPUSCULAR HGB CONC 31.8 G/DL (33.0-37.0); MEAN CORPUSCULAR VOLUME 87.5 FL (81.0-99.0); MEAN PLATELET VOLUME 7.9 FL (7.4-10.4); PLATELET COUNT 212 /CUMM (130-400); RBC DISTRIBUTION WIDTH 13.8 % (11.5-14.5); RED BLOOD CELL CT 4.95 /CUMM (4.20-5.40); WHITE BLOOD CELL COUNT 6.7 /CUMM (4.8-10.8)
--- NOTE | 2017-10-22 10:52 | RADIOLOGY REPORT ---
EXAMINATION: XR ABDOMEN WITH PA CHEST CLINICAL INDICATION: Obstipation. Abdominal pain. History of multiple abdominal surgeries, cough with sputum production. History of COPD. Rule out obstruction. Rule out pneumonia. COMPARISON: Chest radiograph dated 10/09/2017. TECHNIQUE: PA view of the chest and multiple upright and supine AP views of the abdomen. FINDINGS: Calcific atherosclerosis is present in the thoracic aorta. Heart is normal in size. Pulmonary vasculature is unremarkable. Chronic postsurgical changes of prior 6th rib osteotomy are evident at the right hemithorax posteriorly and posterolaterally. There is distortion of the right minor fissure with cephalad elevation. Linear opacities in the lung bases likely correspond to atelectasis or pleural parenchyma scarring. No focal consolidation. No acute osseous findings. Cholecystectomy clips are present in the right upper quadrant. There is a catheter which extends into the central canal of the spine at the lumbar spine and ascends to the level of T8. There is a nondilated bowel gas pattern. A few air-fluid levels are identified which may be physiologic. A moderate volume stool is present in the colon. No pneumoperitoneum. Degenerative disc disease is present in the thoracolumbar spine. There is degenerative arthritis at the SI joints and hips. IMPRESSION: 1. No acute pulmonary findings. No evidence of pneumonia. 2. Nondilated bowel gas pattern. No definite findings of obstruction. A few air-fluid levels in the small bowel in the central abdomen are indeterminate and could be physiologic. Focal ileus is also possible.
--- NOTE | 2017-10-22 15:15 | CT SCAN REPORT ---
EXAMINATION: CT ABDOMEN AND PELVIS WITH CONTRAST CLINICAL INFORMATION: Severe right-sided back pain with CVA tenderness. History is Crohn's disease within the medical record. COMPARISON: Same day abdominal exam, CT abdomen and pelvis 07/13/2017, 01/24/2017 TECHNIQUE: Multidetector volumetric imaging was performed of the abdomen and pelvis following IV administration of 95 mL of Optiray 320 intravenous contrast. Sagittal and coronal reformatted images were obtained on the technologist's workstation. DLP: 265 mGy-cm FINDINGS: LUNG BASES: The visualized lung bases are unremarkable. LIVER, GALLBLADDER, AND BILIARY TREE: The liver enhances homogeneously. No focal lesion. There is mild intrahepatic biliary dilatation. The gallbladder is surgically absent. The common bile duct is mildly prominent measuring up to 1 cm in diameter. This is within normal range in the setting of cholecystectomy. PANCREAS: The pancreas appears diffusely fatty replaced, somewhat unusual in this age group. SPLEEN: Unremarkable. ADRENAL GLANDS: Unremarkable. KIDNEYS AND URETERS: The kidneys are normal in size, shape, and attenuation. No hydronephrosis, hydroureter, or calculi seen. No perinephric stranding. BLADDER: Unremarkable. GASTROINTESTINAL TRACT: There is a surgical anastomosis adjacent to the hepatic flexure which is similar in appearance compared to 01/24/2017. There is a focal area of enhancement along the anastomosis anteriorly measuring approximately 2.5 cm in size. This area of enhancement contains a sutural material and abuts the right anterior abdominal wall (image 46, series 2). No dilated loops of small or large bowel. There are scattered diverticula of the sigmoid colon. No CT evidence for acute diverticulitis. ABDOMINAL WALL: There is mild asymmetric enhancement of the right rectus abdominis at the level of the sutural anastomosis (image 46, series 2). The asymmetric appearance at this level is little change compared to the 01/24/2017 study. There is evidence of previous abdominal surgeries. Metallic device within the left lateral abdominal subcutaneous tissues. LYMPH NODES: Normal. VASCULAR: Unremarkable. PELVIC VISCERA: The uterus appears surgically absent. There is no significant free fluid within the pelvis. No adnexal mass. OSSEOUS STRUCTURES: Mild degenerative changes involving the lower thoracic and lumbar spine including degenerative disc disease at the L2-L3 level with disc space narrowing and vacuum disc phenomenon. IMPRESSION: 1. No CT evidence for acute renal obstruction. 2. Prominent surgical anastomosis at the level of the hepatic flexure. The appearance is overall little change compared to the CT of 01/24/2017. Recommend correlation to site of patient's symptoms. 3. Status post cholecystectomy with mild prominence of the common bile duct and mild intrahepatic biliary dilatation. 4. Fatty replacement of the pancreas. 5. Diverticulosis without CT evidence for acute diverticulitis.
[2017-10-22] MEDS ORDERED: BENTYL10 M1 PO (16:20)
[2017-10-22 17:27] VITALS: BP 126/65
== END 2017-10-22 18:06 ==
LOC: ERH 08:13
PROVIDERS: Dermatology
DX: G89.18 Other acute postprocedural pain (principal); R10.9 Unspecified abdominal pain; G89.4 Chronic pain syndrome; J44.9 Chronic obstructive pulmonary disease, unspecified; E11.9 Type 2 diabetes mellitus without complications; Z79.4 Long term (current) use of insulin
CPT/HCPCS: 74022; 74177; 81003; 96374; 96375; 96376; J0131; J1885; J2405

== ENCOUNTER 2018-01-13 18:39 | Emergency (ER) | payer OTHER, MEDICARE ==
[~2018-01-13] VITALS: Ht 160 cm; Wt 68.0 kg
[~2018-01-13 18:39] MED LIST changes: +BENTYL10 M1 PO; +DICYCLOMINE HCL10 M1 PO; +ERYTHROMYCIN250 M1 PO; -FENTANYL1 EAC4 TOP; +FUROSEMIDE20 M1 PO; +PEPCID20 M1 PO; +SPIRIVA18 MCG INH; +SYMBICORT 16010.2 GM INH; +TIGAN300 MG PO
[2018-01-13 18:55] VITALS: BP 173/89
[2018-01-13] MEDS ORDERED: DILAUDID4 M1 PO (19:04)
--- NOTE | 2018-01-13 19:06 | ED GENERAL ADULT ---
History of Present Illness General Chief Complaint: General Adult Stated Complaint: RX REFILL Source: patient Exam Limitations: no limitations Vital Signs & Intake/Output Vital Signs & Intake/Output Vital Signs Date Time Temp Pulse Resp B/P B/P Pulse O2 O2 Flow FiO2 Mean Ox Delivery Rate 01/13 1855 96.4 108 18 173/89 94 Room Air Room Air ED Intake and Output 01/14 0000 01/13 1200 Intake Total Output Total Balance Patient 150 lb Weight Weight Reported by Patient Measurement Method Allergies Coded Allergies: Sulfa (Sulfonamide Antibiotics) (Intermediate, HIVES 10/09/17) tioconazole (Intermediate, VAGINA SWELLING 10/09/17) promethazine (From PHENERGAN) (LEGS STARTED JUMPING PER PT 10/09/17) metoclopramide (From REGLAN) (Intermediate, ANTSY, RESTLESS LEGS 10/09/17) prochlorperazine (From COMPAZINE) (Intermediate, JITTERY, "JUMP OUT OF MY SKIN" 10/09/17) Reconcile Medications Budesonide/Formoterol Fumarate (Symbicort 160-4.5 Mcg Inhaler) 160 MCG-4.5 MCG/ ACTUATION HFA.AER.AD 2 PUF INH BID BREATHING PROBLEMS (Reported) Diazepam 5 MG TABLET 1 TAB PO TID ANXIETY (Reported) Dicyclomine HCl 10 MG CAPSULE 1 CAP PO TID PRN GASTROENTERITIS Ergocalciferol (Vitamin D2) (Vitamin D2) 50,000 UNIT CAPSULE 1 CAP PO QMON SUPPLEMENT (Reported) Erythromycin Base (Erythromycin) 250 MG TABLET 1 TAB PO TID ABD PAIN/ GASTROPARESIS Famotidine (Pepcid) 20 MG TABLET 1 TAB PO BID GI (Reported) Fentanyl 100 MCG/HOUR PATCH.TD72 1 PAT TOP Q48 PAIN (Reported) Furosemide 20 MG TABLET 1 TAB PO DAILY PRN WATER7 (Reported) Gabapentin 300 MG CAPSULE 1 CAP PO TID NERVE PAIN (Reported) Hydromorphone HCl (Dilaudid) 4 MG TABLET 1 TAB PO TID PRN PAIN Insulin Aspart, Recombinant (Novolog Flexpen) (Unknown Strength) INSULN.PEN ( Unknown Dose) SEE SLIDING SCALE PRN DM (Reported) Insulin Glargine,Hum.rec.anlog (Toujeo Solostar) 300 UNIT/ML (1.5 ML) INSULN.PEN 70 UNITS SQ BID DIABETES (Reported) Ipratropium/Albuterol Sulfate (Iprat-Albut 0.5-3(2.5) MG/3 Ml) 0.5 MG-3 MG (2.5 MG BASE)/3 ML AMPUL.NEB 1 VIAL INH/SCOTT BID PRN COPD (Reported) Linaclotide (Linzess) 145 MCG CAPSULE 1 CAP PO DAILY PRN GI (Reported) Ondansetron (Ondansetron Odt) 8 MG TAB.RAPDIS 1 TAB PO Q6 PRN NAUSEA/VOMITING (Reported) Tiotropium [place] (Spiriva) 18 MCG CAP.W.DEV 1 CAP INH DAILY BREATHING PROBLEMS (Reported) Trimethobenzamide HCl (Tigan) 300 MG CAPSULE 1 CAP PO TID PRN NAUSEA Triage Note: PT TO ED FOR MED REFILL OF DILAUDID, "I WENT TO MY PAIN MANAGMENT DOCTOR AND THE DOCTOR SENT MY PRESCRIPTION WITH ME STANDING THERE, BUT THE PHARMACY DOESN'T HAVE THE ORDER, CALLED THE SERVICE AND TOLD TO COME TO THE ED FOR MEDS FOR THE WEEKEND AND TO CALL BACK ON TUESDAY". BLU VASQUEZ IN TRIAGE FOR EVAL. Triage Nurses Notes Reviewed? yes Onset: Gradual Duration: hour(s): Timing: single episode today Injury Environment: home HPI: 62yo female on chronic pain management due to pain from her Crohn's disease presents to emergency department requesting medication refill. Patient is on Dilaudid 4 mg PO TID for pain. Patient states that she saw her silk screen painter on 12/13 and was given her monthly prescription. Patient saw her silk screen painter yesterday and was told that she would be prescription and have her when she called her pharmacy did not have this prescription. Patient is worried because she has been on this medication and does not want to go into withdrawal. She has one dose left of her dilaudid. (Pooja VASQUEZ,Alysia Valiente) Past History Travel History Traveled to [place] past 21 day No Medical History Any Pertinent Medical History? see below for history Neurological: peripheral neuropathy EENT: NONE Cardiovascular: hyperlipidemia Respiratory: COPD (HOME 02 DEPENDENT 4-5L), Hx RUL lung Ca- resected & CTX (? when, ? 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 details History of MRSA: No History of VRE: No History of CDIFF: No Surgical History Surgical History: appendectomy, cholecystectomy, colon resection (03/1996- sigmoid diverticuliti), hernia repair-incisional, hysterectomy, Lobectomy RUL- lung Ca f/b CTX colostomy reversal 2008: ? R hemicolectomy Psychosocial History Who do you live with Spouse Services at Home Oxygen What is your primary language French Tobacco Use: Current Daily Use Daily Tobacco Use Amount/Type: => 5 Cigarettes daily ETOH Use: denies use Illicit Drug Use: marijuana Family History Family History, If Any: MOTHER (PUD/diverticulitis). , Age 80; Cause: Unknown cause of morbidity or mortality. FHx: heart disease FATHER (urinary bladder Ca, PVD, PUD). , Age 80; Cause: Myocardial infarction. Bladder cancer FH: lung cancer FHx: heart disease Relation not specified for: Breast cancer in sister Liver cancer Hx Contributory? No (Alysia Tompkins) Review of Systems Review of Systems Constitutional: Reports: no symptoms. EENTM: Reports: no symptoms. Respiratory: Reports: no symptoms. Cardiovascular: Reports: no symptoms. GI: Reports: no symptoms. Genitourinary: Reports: no symptoms. Musculoskeletal: Reports: no symptoms. Skin: Reports: no symptoms. Neurological/Psychological: Reports: no symptoms. Hematologic/Endocrine: Reports: no symptoms. Immunologic/Allergic: Reports: no symptoms. All Other Systems: Reviewed and Negative (Alysia Tompkins) Physical Exam Physical Exam General Appearance: well developed/nourished, no apparent distress, alert, awake Head: atraumatic, normal appearance Eyes: Bilateral: normal appearance. Ears, Nose, Throat: hearing grossly normal Neck: normal inspection, supple, full range of motion Respiratory: no respiratory distress Back: normal inspection, normal range of motion Extremities: normal inspection, normal range of motion Neurologic/Psych: awake, alert, oriented x 3 Skin: intact, normal color, warm/dry Core Measures ACS in differential dx? No CVA/TIA Diagnosis: No Sepsis Present: No Sepsis Focused Exam Completed? No (Alysia Tompkins) Progress Differential Diagnoses I considered the following diagnoses in my evaluation of the patient: [Opiate dependence, opiate withdrawal, medication refill, polysubstance abuse] Plan of Care: According to CT PNP patient has not had a refill of her monthly Dilaudid since November as she stated. Patient will not be addressed here pain specialist until Tuesday. Patient prescribed 7 tablets of Dilaudid and will follow-up with her specialist on Tuesday. Patient agrees with this plan. Dr. Ernandez agrees with this plan. Initial ED EKG: none (Pooja VASQUEZ,Alysia Valiente) Departure Departure Disposition: HOME OR SELF CARE Condition: Stable Clinical Impression Primary Impression: Chronic pain Qualifiers: Chronic pain type: other chronic pain Qualified Code: G89.29 - Other chronic pain Secondary Impressions: Medication refill Referrals: Fritz Ramos MD (PCP/Family) Additional Instructions: take pain medication as prescribed. Follow up with your pain management doctor on Tuesday. return with worsening symptoms or concerns. Departure Forms: Customer Survey General Discharge Information Prescriptions: Current Visit Scripts Hydromorphone HCl (Dilaudid) 1 TAB PO TID PRN PAIN #7 TAB (Alysia Tompkins) PA/WINERY WORKER Co-Sign Statement Statement: ED Attending supervision documentation- [] I saw and evaluated the patient. I have also reviewed all the pertinent lab results and diagnostic results. I agree with the findings and the plan of care as documented in the PA's/WINERY WORKER's documentation. [X] I have reviewed the ED Record and agree with the PA's/WINERY WORKER's documentation. [] Additions or exceptions (if any) to the PAs/WINERY WORKER's note and plan are summarized below: [] (Oma PINTO,Florentin Benitez) Critical Care Note Critical Care Note Critical Care Time: non-applicable (Alysia Tompkins)
== END 2018-01-13 19:14 ==
LOC: ERH 18:39
DX: G89.29 Other chronic pain (principal); Z76.0 Encounter for issue of repeat prescription
CPT/HCPCS: 99281

== ENCOUNTER → 2018-05-02 | Day surgery (SDC) | payer OTHER, MEDICARE ==
[~2018-05-02] VITALS: Ht 160 cm; Wt 68.0 kg
[~2018-05-02] MED LIST changes: +ATIVAN1 M1 PO; +DIFLUCAN150 M1 PO; +DILAUDID4 M1 PO; +LEVSIN-SL0.125 MG SL; +ZOFRAN ODT4 M1 SL
--- NOTE | 2018-05-08 10:29 | Operative Report ---
Operative/Inv Procedure Report Surgery Date: 05/02/18 Name of Procedure: Replace intrathecal pump reservoir Pre-Operative Diagnosis: intrathecal pump reservoir Post-Operative Diagnosis: Same Estimated Blood Loss: less than 50ml Surgeon/Housefellow: Domingo Ramirez MD Anesthesia: local monitored anesthesi Operative/Procedure Note Note: After consent the patient was brought to the operating room and placed in the supine position. The abdomen was prepped and draped in the usual fashion. The skin over the operative site was infiltrated with 1% lidocaine. A transverse incision was made over the left side of the abdomen where the intrathecal pump reservoir was located. With sharp and blunt dissection, as well as removing of the implanted anchors, intrathecal pump was explanted from the abdomen and disconnected from the existing catheter. Free flow of CSF was observed through the catheter. A new sutureless connector was placed on the catheter. The new pump was brought to the table. The old pump was emptied of his intrathecal medication contents and this was used to refill the new pump after evacuation of sterile water. 2-0 silk sutures were placed in 4 quadrants within the abdominal pocket and the new pump was attached to the catheter and anchored to the deeper fascia with the previously mentioned 2-0 silk sutures. The pocket was then closed with 4-0 Vicryl multilayer closure followed by skin reagan. Dressings were applied the patient brought to the recovery area.
== END ==
LOC: STS 02:03
DX: T85.698A Other mechanical complication of other specified internal prosthetic devices, implants and grafts, initial encounter (principal); E11.9 Type 2 diabetes mellitus without complications; Z79.4 Long term (current) use of insulin; J44.9 Chronic obstructive pulmonary disease, unspecified; F17.200 Nicotine dependence, unspecified, uncomplicated; Z99.81 Dependence on supplemental oxygen; G62.9 Polyneuropathy, unspecified
CPT/HCPCS: C1755; C1772; J2250

== ENCOUNTER 2018-05-22 05:14 | Emergency (ER) | payer OTHER, MEDICARE ==
[~2018-05-22] VITALS: Ht 160 cm; Wt 72.6 kg
--- NOTE | 2018-05-22 05:19 | ED GI/GU/ABDOMINAL COMPLAINT ---
History of Present Illness General Chief Complaint: Abdominal Pain/Flank Pain Stated Complaint: VOMITTING, ABD PAIN Source: patient Exam Limitations: no limitations Vital Signs & Intake/Output Vital Signs & Intake/Output Vital Signs Date Time Temp Pulse Resp B/P B/P Pulse O2 O2 Flow FiO2 Mean Ox Delivery Rate 05/22 0600 93 Nasal 4.0L Cannula 05/22 0527 90 20 149/72 93 Nasal 4.0L Cannula Allergies Coded Allergies: Sulfa (Sulfonamide Antibiotics) (Intermediate, HIVES 05/22/18) tioconazole (Intermediate, VAGINA SWELLING 05/22/18) promethazine (From PHENERGAN) (LEGS STARTED JUMPING PER PT 05/22/18) metoclopramide (From REGLAN) (Intermediate, ANTSY, RESTLESS LEGS 05/22/18) prochlorperazine (From COMPAZINE) (Intermediate, JITTERY, "JUMP OUT OF MY SKIN" 05/22/18) Reconcile Medications Budesonide/Formoterol Fumarate (Symbicort 160-4.5 Mcg Inhaler) 160 MCG-4.5 MCG/ ACTUATION HFA.AER.AD 2 PUF INH BID BREATHING PROBLEMS (Reported) Diazepam 5 MG TABLET 1 TAB PO TID ANXIETY (Reported) Ergocalciferol (Vitamin D2) (Vitamin D2) 50,000 UNIT CAPSULE 1 CAP PO QMON SUPPLEMENT (Reported) Famotidine (Pepcid) 20 MG TABLET 1 TAB PO BID GI (Reported) Fentanyl 100 MCG/HOUR PATCH.TD72 1 PAT TOP Q48 PAIN (Reported) Furosemide 20 MG TABLET 1 TAB PO DAILY PRN WATER7 (Reported) Gabapentin 300 MG CAPSULE 1 CAP PO TID NERVE PAIN (Reported) Hydromorphone HCl (Dilaudid) 4 MG TABLET 1 TAB PO TID PRN PAIN Insulin Aspart, Recombinant (Novolog Flexpen) (Unknown Strength) INSULN.PEN ( Unknown Dose) SEE SLIDING SCALE PRN DM (Reported) Insulin Glargine,Hum.rec.anlog (Toujeo Solostar) 300 UNIT/ML (1.5 ML) INSULN.PEN 70 UNITS SQ BID DIABETES (Reported) Ipratropium/Albuterol Sulfate (Iprat-Albut 0.5-3(2.5) MG/3 Ml) 0.5 MG-3 MG (2.5 MG BASE)/3 ML AMPUL.NEB 1 VIAL INH/SCOTT BID PRN COPD (Reported) LORazepam (Ativan) 1 MG TAB 1 TAB PO BID anxiety six... [id number] Ondansetron (Zofran Odt) 4 MG TAB.RAPDIS 1 TAB SL TID PRN NAUSEA Tiotropium [place] (Spiriva) 18 MCG CAP.W.DEV 1 CAP INH DAILY BREATHING PROBLEMS (Reported) Triage Nurses Notes Reviewed? yes ? n Is pt currently ? No Onset: Gradual Duration: day(s): Timing: recent history Quality/Severity: cramping Location: epigastric Radiation: no radiation Activities at Onset: none HPI: 63 yo woman h/o 02 dependence copd (4 liters), chronic pain presents with nausea, vomiting, and constipation. She shares, "I woke up this morning and couldn't stop vomiting." Her last good bowel movement was a week ago. "Last night just a small amount came out... and I had to push." No fever, chills, dysuria, chest pain, dyspnea. She shares that she had a negative cardiac stress test less than 2 months ago. She is otherwise well. Past History Medical History Any Pertinent Medical History? see below for history Neurological: peripheral neuropathy EENT: NONE Cardiovascular: hyperlipidemia Respiratory: COPD (HOME 02 DEPENDENT 4-5L), Hx RUL lung Ca- resected & CTX (? when, ? 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 details History of MRSA: No History of VRE: No History of CDIFF: No Surgical History Surgical History: appendectomy, cholecystectomy, colon resection (03/1996- sigmoid diverticuliti), hernia repair-incisional, hysterectomy, Lobectomy RUL- lung Ca f/b CTX colostomy reversal 2008: ? R hemicolectomy Psychosocial History Who do you live with Spouse Services at Home Oxygen What is your primary language Ch[place] Family History Family History, If Any: MOTHER (PUD/diverticulitis). , Age 80; Cause: Unknown cause of morbidity or mortality. FHx: heart disease FATHER (urinary bladder Ca, PVD, PUD). , Age 80; Cause: Myocardial infarction. Bladder cancer FH: lung cancer FHx: heart disease Relation not specified for: Breast cancer in sister Liver cancer Hx Contributory? No Review of Systems Review of Systems Constitutional: Reports: no symptoms. EENTM: Reports: no symptoms. Respiratory: Reports: no symptoms. Cardiovascular: Reports: no symptoms. GI: Reports: no symptoms. Genitourinary: Reports: no symptoms. Musculoskeletal: Reports: no symptoms. Skin: Reports: no symptoms. Neurological/Psychological: Reports: no symptoms. Hematologic/Endocrine: Reports: no symptoms. Immunologic/Allergic: Reports: no symptoms. All Other Systems: Reviewed and Negative Physical Exam Physical Exam General Appearance: well developed/nourished, mild distress, moderate distress Head: atraumatic, normal appearance Eyes: Bilateral: normal appearance. Ears, Nose, Throat, Mouth: hearing grossly normal, moist mucous membrane Neck: normal inspection, supple, full range of motion Respiratory: normal breath sounds, chest non-tender, no respiratory distress, quiet respiration, lungs clear Cardiovascular: regular rate/rhythm Gastrointestinal: distension, +bowel sounds, mild tenderness in epigastrum Rectal: guiac negative, no signficant stool in vault. Back: normal inspection, normal range of motion Extremities: normal range of motion Neurologic/Psych: no motor/sensory deficits, awake, alert, oriented x 3 Skin: intact, normal color, warm/dry Core Measures ACS in differential dx? No Sepsis Present: No Sepsis Focused Exam Completed? No Progress Differential Diagnosis: bowel obstruction, constipation vs other. Plan of Care: Orders Procedure Date/time Status TROPONIN LEVEL 05/22 519 Complete LIPASE 05/22 519 Complete LACTIC ACID 05/22 519 Complete HEPATIC FUNCTION PANEL 05/22 519 Complete CBC WITHOUT DIFFERENTIAL 05/22 519 Complete BASIC METABOLIC PANEL 05/22 519 Complete AMYLASE 05/22 519 Complete EKG 05/22 519 Active Laboratory Tests 05/22/18 0553: Anion Gap 8, Estimated GFR > 60, BUN/Creatinine Ratio 18.0, Glucose 373 H, Lactic Acid 1.6, Calcium 9.0, Total Bilirubin 0.4, Direct Bilirubin 0.3, AST 16, ALT 26, Alkaline Phosphatase 136 H, Troponin I < 0.01, Total Protein 6.4, Albumin 3.6, Amylase 36, Lipase 28, CBC w Diff NO MAN DIFF REQ, RBC 4.90, MCV 88.2, MCH 29.0, MCHC 32.8 L, RDW 13.7, MPV 7.7, Gran % 71.2, Lymphocytes % 17.9 L, Monocytes % 7.6, Eosinophils % 2.9, Basophils % 0.4, Absolute Granulocytes 7.3 H, Absolute Lymphocytes 1.8, Absolute Monocytes 0.8 H, Absolute Eosinophils 0.3, Absolute Basophils 0 Diagnostic Imaging: Viewed by Me: CT Scan. Discussed w/RAD: CT Scan. Radiology Impression: PATIENT: EMANUEL BOWEN PRESENT AGE: 63 PATIENT ACCOUNT NO: [id number] : 56 LOCATION: [facility] ORDERING PHYSICIAN: Alexx Sullivan MD SERVICE DATE: 05/22/18 EXAM TYPE: CAT - CT ABD & PELVIS W/O IV CONTRAS EXAMINATION: CT ABDOMEN AND PELVIS WITHOUT CONTRAST CLINICAL INFORMATION: Abdominal pain, distention COMPARISON: 05/18/2018 TECHNIQUE: Multidetector volumetric imaging was performed from the superior aspect of the liver through the pubic symphysis. Sagittal and coronal reformatted images were obtained on the technologist's workstation. DLP: 327.72 mGy-cm FINDINGS: LUNG BASES: The visualized lung bases are unremarkable. LIVER, GALLBLADDER, AND BILIARY TREE: The liver is normal in size, shape, and attenuation. No focal hepatic lesion identified, though assessment is suboptimal in the absence of intravenous contrast. There is mild biliary ductal prominence, similar to prior, which may be physiologic in the setting of prior cholecystectomy. PANCREAS: There is fatty atrophy of the pancreas. SPLEEN: Unremarkable. ADRENAL GLANDS: Unremarkable. KIDNEYS AND URETERS: The kidneys are normal in size, shape, and attenuation. No hydronephrosis, hydroureter, or calculi seen. No perinephric stranding. BLADDER: Unremarkable. GASTROINTESTINAL TRACT: Colonic diverticulosis is noted. The small and large bowel are otherwise unremarkable without evidence of obstruction or pericolonic inflammatory change. Colonic suture line is noted in the region of the hepatic flexure. The appendix is not discretely visualized. No free fluid or free air is seen. ABDOMINAL WALL: No significant hernia is appreciated. Stimulator device is again noted in the left lateral abdominal wall with lead extending to the lower thoracic spine. LYMPH NODES: Normal. VASCULAR: There is scattered atherosclerotic calcification. PELVIC VISCERA: Patient is status post hysterectomy. OSSEOUS STRUCTURES: Relatively mild degenerative changes are noted in the spine. IMPRESSION: No acute findings identified in the abdomen/pelvis. Redemonstrated chronic findings as described above. DICTATED BY: Edgardo Donohue MD DATE/TIME DICTATED:05/22/18599 CARTOON DESIGNER:DOMINGA DATE/TIME TRANSCRIBED:05/22/18599 CONFIDENTIAL, DO NOT COPY WITHOUT APPROPRIATE AUTHORIZATION. <Electronically signed in Other Vendor System> SIGNED BY: Edgardo Donohue MD 05/22/18611 Initial ED EKG: normal axis, normal intervals, normal p-waves, normal QRS complex, normal sinus rhythm Departure Departure Disposition: HOME OR SELF CARE Condition: Stable Clinical Impression Primary Impression: Abdominal pain Referrals: Fritz Ramos MD (PCP/Family) Departure Forms: Customer Survey General Discharge Information Comments 05/22/18, 6:55am... pt resting comfortably... ct scan/labs benign. she feels comfortable going home.
[2018-05-22 06:04] LABS: ABSOLUTE BASOPHIL COUNT 0 /CUMM (0.0-0.2); ABSOLUTE EOSINOPHIL COUNT 0.3 /CUMM (0.0-0.7); ABSOLUTE GRANULOCYTE CT 7.3 /CUMM (1.4-6.5); ABSOLUTE LYMPH COUNT 1.8 /CUMM (1.2-3.4); ABSOLUTE MONOCYTE COUNT 0.8 /CUMM (0.10-0.60); BASOPHIL % 0.4 % (0.0-2.0); EOSINOPHIL % 2.9 % (0-5); GRANULOCYTE % 71.2 % (42.2-75.2); HEMATOCRIT 43.2 % (37-47); MEAN CORPUSCULAR HGB CONC 32.8 G/DL (33.0-37.0); MEAN CORPUSCULAR VOLUME 88.2 FL (81.0-99.0); MEAN PLATELET VOLUME 7.7 FL (7.4-10.4); PLATELET COUNT 271 /CUMM (130-400); RBC DISTRIBUTION WIDTH 13.7 % (11.5-14.5); WHITE BLOOD CELL COUNT 10.2 /CUMM (4.8-10.8)
--- NOTE | 2018-05-22 06:12 | CT SCAN REPORT ---
EXAMINATION: CT ABDOMEN AND PELVIS WITHOUT CONTRAST CLINICAL INFORMATION: Abdominal pain, distention COMPARISON: 05/18/2018 TECHNIQUE: Multidetector volumetric imaging was performed from the superior aspect of the liver through the pubic symphysis. Sagittal and coronal reformatted images were obtained on the technologist's workstation. DLP: 327.72 mGy-cm FINDINGS: LUNG BASES: The visualized lung bases are unremarkable. LIVER, GALLBLADDER, AND BILIARY TREE: The liver is normal in size, shape, and attenuation. No focal hepatic lesion identified, though assessment is suboptimal in the absence of intravenous contrast. There is mild biliary ductal prominence, similar to prior, which may be physiologic in the setting of prior cholecystectomy. PANCREAS: There is fatty atrophy of the pancreas. SPLEEN: Unremarkable. ADRENAL GLANDS: Unremarkable. KIDNEYS AND URETERS: The kidneys are normal in size, shape, and attenuation. No hydronephrosis, hydroureter, or calculi seen. No perinephric stranding. BLADDER: Unremarkable. GASTROINTESTINAL TRACT: Colonic diverticulosis is noted. The small and large bowel are otherwise unremarkable without evidence of obstruction or pericolonic inflammatory change. Colonic suture line is noted in the region of the hepatic flexure. The appendix is not discretely visualized. No free fluid or free air is seen. ABDOMINAL WALL: No significant hernia is appreciated. Stimulator device is again noted in the left lateral abdominal wall with lead extending to the lower thoracic spine. LYMPH NODES: Normal. VASCULAR: There is scattered atherosclerotic calcification. PELVIC VISCERA: Patient is status post hysterectomy. OSSEOUS STRUCTURES: Relatively mild degenerative changes are noted in the spine. IMPRESSION: No acute findings identified in the abdomen/pelvis. Redemonstrated chronic findings as described above.
[2018-05-22 06:58] VITALS: BP 117/56
== END 2018-05-22 07:02 ==
LOC: ERH 05:14
PROVIDERS: Pediatrics
DX: R10.13 Epigastric pain (principal); R11.2 Nausea with vomiting, unspecified; K59.00 Constipation, unspecified; J44.9 Chronic obstructive pulmonary disease, unspecified; E11.9 Type 2 diabetes mellitus without complications; Z79.4 Long term (current) use of insulin
CPT/HCPCS: 74176; 93005; 93010